=== PATIENT | female | born 1975 | race Caucasian/White ===

== ENCOUNTER 2016-05-27 13:52 | Emergency (ER) | payer MEDICARE, MEDICAID ==
[2016-05-27 15:45] LABS: Hematocrit 42 % (35-47); Hemoglobin 14.2 g/dl (12.0-16.0); Mean Corpuscular HGB Conc 34 g/dl (31-36); Mean Corpuscular Hemoglobin 30 pg (27-31); Mean Corpuscular Volume 90 fL (80-97); Mean Platelet Volume 9 um3 (7.4-10.4); Red Blood Count 4.73 10^6/ul (4.0-5.4); Red Cell Distribution Width 13 % (10.5-15); White Blood Count 9.1 10^3/ul (3.5-10.8)
[2016-05-27 15:58] LABS: Albumin 4.7 g/dL (3.2-5.2); BUN/Creatinine Ratio 13.6 (8-20); C Reactive Protein 2.47 mg/L (< 5.00); Calcium 10.2 mg/dL (8.6-10.3); EGFR African American 126.9 (>60); EGFR Non-African American 98.7 (>60); Globulin 3.4 g/dL (2-4); Potassium 3.5 mmol/L (3.5-5.0); Total Protein 8.1 g/dL (6.4-8.9)
[2016-05-27] MEDS: Ondansetron INJ* 2 MG/ML VIAL IV ONE ×2 (16:19→19:33)
[2016-05-27 17:14] LABS: Erythrocyte Sed Rate 36 mm/Hr (0-14)
[2016-05-27] MEDS ORDERED: Morphine INJ* 4 MG/ML 1 ML SYRINGE IM ONE (17:22)
[2016-05-27 17:34] VITALS: BP 136/74
[2016-05-27] MEDS ORDERED: Iohexol 300* (CONTRAST) 10 ML SDV IV ONE (17:44)
--- NOTE | 2016-05-27 18:53 | RAD ---
INDICATION: Nausea, vomiting, epigastric pain. Diarrhea. History of Lyme disease. Post partial hysterectomy. COMPARISON: September 12, 2010 CT. TECHNIQUE: Multidetector CT images were obtained from the lung bases to the ischial tuberosities. Evaluation of the viscera is limited without IV contrast. Oral contrast administered. Multiplanar reformation. No IV contrast administered due to lack of IV access. REPORT: Unremarkable visualized inferior thorax. No CT abnormality of the unenhanced liver, gallbladder, pancreas, spleen. Negative for CT abdomen malleolus the upper GI, small bowel, retrocecal appendix, or colon. Enteric contrast extends to the mid sigmoid colon. Negative for ascites, free air, hernias. Normal adrenal glands. Negative for nephrolithiasis or hydronephrosis. 2 cm water density cyst at the medial upper pole of the RIGHT kidney. Unremarkable ureters and urinary bladder. Post partial hysterectomy. Unremarkable residual cervix and adnexal regions. Negative for lymphadenopathy. Normal diameter abdominal aorta with minimal calcific plaque. Physiologic distention of the IVC. Negative for suspicious osseous lesions. L4-L5 degenerative spondylosis with moderately severe disc space narrowing and annular disc bulge. Only mild resulting impression on the thecal sac. Degenerative spondylosis and facet joint osteoarthritis results in moderate RIGHT and mild LEFT L4-L5 foraminal stenosis. IMPRESSION: No acute abdominal pelvic pathologic process evident..
[2016-05-27] MEDS ORDERED: Morphine INJ* 4 MG/ML 1 ML SYRINGE IV ONE (19:01)
[2016-05-27] MEDS ORDERED: Omeprazole CAP* 20 MG PO ONE (19:16)
[2016-05-27] MEDS ORDERED: Ondansetron ODT TAB* 4 MG SL PRN (19:16)
[2016-05-27] MEDS ORDERED: Ondansetron INJ* 2 MG/ML VIAL ONE (19:23)
--- NOTE | 2016-05-29 07:44 | ED ---
Abdominal Pain/Female - HPI Summary HPI Summary: Patient is a 40yo F with a complicated PMHx arrives with CC of several weeks of worsening abdominal pain, "worms" in her stool, burping, gas, loud bowel sounds , and profuse diarrhea immediately after eating. She has been on a juice diet for the past week d/t these symptoms stating juice is the only thing she can keep down without diarrhea and severe abdominal pain. The pain is diffuse and constant, but worse after eating or drinking. She has stopped taking her medications about 1-2 weeks ago since she wanted to "cleanse her bowels" before returning. Her history includes lupus and Lyme disease with previous episodes of "worms" in her stool, bartonella rash over the chest, neck pain, back pain and fatigue. She has been seen by her PCP for these symptoms, but feels she may need to seek a GI specialist based on her history. She is currently on Mepron for her lupus flare ups, but hasn't been taking it d/t her GI upset, however she states this medication has worked in the past when she experiences these abd pain episodes. She was previously on Plaquenil. She denies vomiting , but notes to some nausea after eating. She has also brought with her a picture of the "worm" with her BM. - History of Current Complaint Chief Complaint: EDJessicauseRickitMis Stated Complaint: VOMITING Time Seen by Provider: 05/27/16 14:38 Hx Obtained From: Patient ?: No Onset/Duration: Gradual Onset Timing: Constant Severity Initially: Moderate Severity Currently: Moderate Pain Intensity: 5 Pain Scale Used: 0-10 Numeric Location: Diffuse Radiates: No Character: Cramping, Colicy Aggravating Factor(s): Food Alleviating Factor(s): NPO Associated Signs and Symptoms: Positive: Nausea, Diarrhea, Other: - worms in stool - Risk Factors Ectopic Risk Factor: Maternal Age ^ 30 Ovarian Torsion Risk Factor: Reproductive Age Allergies/Adverse Reactions: Allergies Allergy/AdvReac Type Severity Reaction Status Date / Time Sulfa Drugs Allergy Hives Verified 05/27/16 13:54 Codeine AdvReac Intermediate Nausea And Verified 05/27/16 13:54 Vomiting Bupropion [From Wellbutrin] AdvReac Headache Verified 05/27/16 13:54 PMH/Surg Hx/FS Hx/Imm Hx Previously Healthy: Yes Endocrine/Hematology History: Reports: Other Endocrine/Hematological Disorders - Lupus Denies: Hx Thyroid Disease Cardiovascular History: Reports: Hx Hypertension Respiratory History: Denies: Hx Asthma History: Denies: Hx Renal Disease Psychiatric History: Reports: Hx Depression Denies: Hx Eating Disorder, Hx of Violent Episodes Against Others, Hx Substance Abuse - Surgical History Surgery Procedure, Year, and Place: Partial hysterectomy 2006, Eddi Escobar [place]. Tonsillectomy 1998 - Immunization History Date of Tetanus Vaccine: unable to get to to auto immune disease Date of Influenza Vaccine: does not do Infectious Disease History: No Infectious Disease History: Denies: Traveled Outside the [place] in Last 30 Days - Social History Occupation: Employed Full-time Lives: Alone Alcohol Use: None Hx Substance Use: Yes Substance Use Type: Reports: Marijuana Substance Use Comment - Amount & Last Used: 1 month ago Hx Tobacco Use: No Smoking Status (MU): Never Smoked Tobacco Review of Systems Constitutional: Negative Eyes: Negative ENT: Negative Cardiovascular: Negative Respiratory: Negative Positive: Abdominal Pain, Diarrhea, Nausea Genitourinary: Negative Positive: no symptoms reported, see HPI Positive: Arthralgia, Myalgia - at baseline per Lyme disease Positive: Rash - bartonella rash over chest Positive: Headache, Weakness Positive: Anxious, Depressed All Other Systems Reviewed And Are Negative: Yes Physical Exam Triage Information Reviewed: Yes Vital Signs On Initial Exam: Initial Vitals Temp Pulse Resp BP Pulse Ox 98.4 F 93 18 145/99 100 05/27/16 13:54 05/27/16 13:54 05/27/16 13:54 05/27/16 13:54 05/27/16 13:54 Vital Signs Reviewed: Yes Appearance: Positive: Well-Appearing, Well-Nourished Skin: Positive: Warm Head/Face: Positive: Normal Head/Face Inspection Eyes: Positive: Normal, SHRAVAN, Conjunctiva Clear ENT: Positive: Pharynx normal Neck: Positive: Supple, No Lymphadenopathy Respiratory/Lung Sounds: Positive: Clear to Auscultation, Breath Sounds Present Cardiovascular: Positive: Normal, RRR, Pulses are Symmetrical in both Upper and Lower Extremities Abdomen Description: Positive: Soft, Other: - no CVA tenderness, no mcburneys point tenderness, murphys negative. very hyperactive bowel sounds. distended but soft abdomen, diffuse tenderness on palpation, no guarding. negative for bruits or hernias Bowel Sounds: Positive: Hyperactive Musculoskeletal: Positive: Strength/ROM Intact, Pain @ - bilateral tenderness over neck and shoulders Neurological: Positive: Sensory/Motor Intact, Alert, Oriented to Person Place, Time, Speech Normal Psychiatric: Positive: Normal Diagnostics - Vital Signs Vital Signs Temp Pulse Resp BP Pulse Ox 05/27/16 17:31 17 05/27/16 17:25 136/74 05/27/16 13:54 98.4 F 93 18 145/99 100 - Laboratory Lab Results: Lab Results 05/27/16 05/27/16 05/27/16 Range/Units 15:20 15:20 15:20 WBC 9.1 (3.5-10.8) 10^3/ul RBC 4.73 (4.0-5.4) 10^6/ul Hgb 14.2 (12.0-16.0) g/dl Hct 42 (35-47) % MCV 90 (80-97) fL MCH 30 (27-31) pg MCHC 34 (31-36) g/dl RDW 13 (10.5-15) % Plt Count 278 (150-450) 10^3/ul MPV 9 (7.4-10.4) um3 Neut % (Auto) 71.5 (38-83) % Lymph % (Auto) 20.6 L (25-47) % [place] % (Auto) 6.9 (1-9) % Eos % (Auto) 0.3 (0-6) % Baso % (Auto) 0.7 (0-2) % Absolute Neuts (auto) 6.5 (1.5-7.7) 10^3/ul Absolute Lymphs (auto) 1.9 (1.0-4.8) 10^3/ul Absolute Monos (auto) 0.6 (0-0.8) 10^3/ul Absolute Eos (auto) 0 (0-0.6) 10^3/ul Absolute Basos (auto) 0.1 (0-0.2) 10^3/ul Absolute Nucleated RBC 0 10^3/ul Nucleated RBC % 0 ESR 36 H (0-14) mm/Hr INR (Anticoag Therapy) (0.89-1.11) Sodium 138 (133-145) mmol/L Potassium 3.5 (3.5-5.0) mmol/L Chloride 101 (101-111) mmol/L Carbon Dioxide 27 (22-32) mmol/L Anion Gap 10 (2-11) mmol/L BUN 9 (6-24) mg/dL Creatinine 0.66 (0.51-0.95) mg/dL Est GFR ( Amer) 126.9 (>60) Est GFR (Non-Af Amer) 98.7 (>60) BUN/Creatinine Ratio 13.6 (8-20) Glucose 97 (70-100) mg/dL Lactic Acid (0.5-2.0) mmol/L Calcium 10.2 (8.6-10.3) mg/dL Magnesium 2.0 (1.9-2.7) mg/dL Total Bilirubin 1.00 (0.2-1.0) mg/dL AST 12 L (13-39) U/L ALT 8 (7-52) U/L Alkaline Phosphatase 71 (34-104) U/L Ammonia 39 (16-53) mol/L C-Reactive Protein 2.47 (< 5.00) mg/L Total Protein 8.1 (6.4-8.9) g/dL Albumin 4.7 (3.2-5.2) g/dL Globulin 3.4 (2-4) g/dL Albumin/Globulin Ratio 1.4 (1-3) Amylase 29 (29-103) U/L Lipase 13 (11.0-82.0) U/L Beta HCG, Quant 1.14 mIU/mL Influenza A (Rapid) (Negative) Influenza B (Rapid) (Negative) 05/27/16 05/27/16 05/27/16 Range/Units 15:20 15:20 17:38 WBC (3.5-10.8) 10^3/ul RBC (4.0-5.4) 10^6/ul Hgb (12.0-16.0) g/dl Hct (35-47) % MCV (80-97) fL MCH (27-31) pg MCHC (31-36) g/dl RDW (10.5-15) % Plt Count (150-450) 10^3/ul MPV (7.4-10.4) um3 Neut % (Auto) (38-83) % Lymph % (Auto) (25-47) % Baker % (Auto) (1-9) % Eos % (Auto) (0-6) % Baso % (Auto) (0-2) % Absolute Neuts (auto) (1.5-7.7) 10^3/ul Absolute Lymphs (auto) (1.0-4.8) 10^3/ul Absolute Monos (auto) (0-0.8) 10^3/ul Absolute Eos (auto) (0-0.6) 10^3/ul Absolute Basos (auto) (0-0.2) 10^3/ul Absolute Nucleated RBC 10^3/ul Nucleated RBC % ESR (0-14) mm/Hr INR (Anticoag Therapy) 0.96 (0.89-1.11) Sodium (133-145) mmol/L Potassium (3.5-5.0) mmol/L Chloride (101-111) mmol/L Carbon Dioxide (22-32) mmol/L Anion Gap (2-11) mmol/L BUN (6-24) mg/dL Creatinine (0.51-0.95) mg/dL Est GFR ( Amer) (>60) Est GFR (Non-Af Amer) (>60) BUN/Creatinine Ratio (8-20) Glucose (70-100) mg/dL Lactic Acid 1.2 (0.5-2.0) mmol/L Calcium (8.6-10.3) mg/dL Magnesium (1.9-2.7) mg/dL Total Bilirubin (0.2-1.0) mg/dL AST (13-39) U/L ALT (7-52) U/L Alkaline Phosphatase (34-104) U/L Ammonia (16-53) mol/L C-Reactive Protein (< 5.00) mg/L Total Protein (6.4-8.9) g/dL Albumin (3.2-5.2) g/dL Globulin (2-4) g/dL Albumin/Globulin Ratio (1-3) Amylase (29-103) U/L Lipase (11.0-82.0) U/L Beta HCG, Quant mIU/mL Influenza A (Rapid) Negative (Negative) Influenza B (Rapid) Negative (Negative) Result Diagrams: 05/27/16 15:20 05/27/16 15:20 Lab Statement: Any lab studies that have been ordered have been reviewed, and results considered in the medical decision making process. Abdominal Pain Fem Course/Dx - Course Course Of Treatment: CT negative for pathologies. Discussed case with Dr. Odonnell. Patient encouraged to follow up [facility] Dr. Chavira or Dr. Tobias and PCP regarding Lyme disease complications and returning on medications. Fluids given in ED. zofran and pain medication given. Patient improved with medications, however still c/o abdominal tenderness and loud bowel sounds. provider did not change or add medications d/t complicated history and will encourage follow up with GI to assess medications, complications of Lyme disease and to evaluate the stool for helminths or biofilm. patient agrees and will attempt to eat small meals in return of PO intake. zofran given as rx. Discussed possiblities of dx such as IBS, lyme complications, acute viral diarrhea, celiac, amonst others. - Diagnoses Differential Diagnosis: Positive: Bowel Obstruction, Diverticulitis, Irritable Bowel Syndrome Provider Diagnoses: Diarrhea Discharge - Discharge Plan Condition: Stable Disposition: HOME Prescriptions: Omeprazole 40 mg PO BEDTIME #30 cap MDD 1 Ondansetron ODT TAB* [Zofran 4 MG Odt TAB*] 4 mg PO Q6H PRN #20 tab.odt MDD 4 PRN Reason: Nausea Patient Education Materials: Omeprazole (By mouth), Gastroesophageal Reflux Disease (ED) Referrals: Arik Villegas MD [Primary Care Provider] - Mario Tobias MD [Medical Doctor] - John Chavira MD [Medical Doctor] - Additional Instructions: Follow up with [facility]. Take omeprazole at bedtime. Zofran as needed for abdominal pain Eat smaller more frequent meals If symptoms become worse, come back to ED.
== END 2016-05-27 19:57 | disposition home or self-care (01) ==
LOC: ED 13:52
DX: R19.7 Diarrhea, unspecified (principal); R11.0 Nausea
CPT/HCPCS: 36415; 74176; 80053; 82140; 82150; 83605; 83690; 83735; 84702; 85025; 85610; 85652; 86140; 87502; 96374; 96375; 99284; A9270-GY; J2270; J2405

== ENCOUNTER 2016-05-30 14:53 | Emergency (ER) | payer MEDICARE, MEDICAID ==
[2016-05-30 16:45] VITALS: BP 159/88
[2016-05-30 17:08] LABS: Hematocrit 37 % (35-47); Hemoglobin 12.5 g/dl (12.0-16.0); Mean Corpuscular HGB Conc 34 g/dl (31-36); Mean Corpuscular Hemoglobin 30 pg (27-31); Mean Corpuscular Volume 89 fL (80-97); Mean Platelet Volume 8 um3 (7.4-10.4); Red Blood Count 4.12 10^6/ul (4.0-5.4); Red Cell Distribution Width 13 % (10.5-15); White Blood Count 8.1 10^3/ul (3.5-10.8)
[2016-05-30 17:25] LABS: Albumin 4.1 g/dL (3.2-5.2); BUN/Creatinine Ratio 16.1 (8-20); C Reactive Protein 2.17 mg/L (< 5.00); Calcium 9.6 mg/dL (8.6-10.3); EGFR African American 136.4 (>60); EGFR Non-African American 106.1 (>60); Globulin 2.8 g/dL (2-4); Potassium 3.6 mmol/L (3.5-5.0); Total Bilirubin 0.9 mg/dL (0.2-1.0); Total Protein 6.9 g/dL (6.4-8.9)
[2016-05-30] MEDS ORDERED: Ondansetron ODT TAB* 4 MG PO ONE (18:33)
--- NOTE | 2016-06-02 15:29 | ED ---
Thomas Barger Adam, scribed for Emerson Mcdonald MD on 05/30/16 at 1723 . Abdominal Pain/Female - HPI Summary HPI Summary: Pt is a 40 year old female with chronic Lyme disease presenting with abdominal pain. She came here on 05/27 because she was unable to keep food down and she was having diarrhea. She was also concerned because she thought she saw a worm in her stool. She was discharged from the ED with Zofran and Immodium. The next morning she woke up and found that she had had diarrhea in her sleep. Then she had a second episode of bowel incontinence during a nap later that day. The following day (yesterday) she had a solid BM, was able to tolerate PO, and felt like she was at her normal baseline. Then today the abdominal pain returned again. She also c/o generalized myalgia and diaphoresis. At the moment the pt is in no pain but she c/o nausea. She was put on Azithromycin for the Lyme 5-[address] Villegas but she states that she was unable to continue taking it because it upset her stomach too much. She decided to focus on her GI health first and she is scheduled to see a GI doctor on 07/04. Pt denies any surgeries and denies any alcohol use. - History of Current Complaint Chief Complaint: EDAbdPain Stated Complaint: PAIN WITH BOWEL MOVEMENT Time Seen by Provider: 05/30/16 16:43 Hx Obtained From: Patient Onset/Duration: Gradual Onset, Lasting Weeks, Still Present Timing: Intermittent Episode Lasting - Days Severity Initially: Moderate Severity Currently: None Pain Intensity: 5 Pain Scale Used: 0-10 Numeric Location: Diffuse Radiates: No Aggravating Factor(s): Nothing Alleviating Factor(s): Nothing Associated Signs and Symptoms: Positive: Diaphoresis, Nausea, Diarrhea, Other: - Bowel incontinence Allergies/Adverse Reactions: Allergies Allergy/AdvReac Type Severity Reaction Status Date / Time Sulfa Drugs Allergy Hives Verified 05/27/16 13:54 Codeine AdvReac Intermediate Nausea And Verified 05/27/16 13:54 Vomiting Bupropion [From Wellbutrin] AdvReac Headache Verified 05/27/16 13:54 PMH/Surg Hx/FS Hx/Imm Hx Endocrine/Hematology History: Reports: Other Endocrine/Hematological Disorders - Lupus Denies: Hx Thyroid Disease Cardiovascular History: Reports: Hx Hypertension Respiratory History: Denies: Hx Asthma History: Denies: Hx Renal Disease Psychiatric History: Reports: Hx Depression Denies: Hx Eating Disorder, Hx of Violent Episodes Against Others, Hx Substance Abuse - Surgical History Surgery Procedure, Year, and Place: Partial hysterectomy 2006, Eddi Escobar [place]. Tonsillectomy 1998 - Immunization History Date of Tetanus Vaccine: unable to get to to auto immune disease Date of Influenza Vaccine: does not do Infectious Disease History: No Infectious Disease History: Denies: Traveled Outside the [place] in Last 30 Days - Family History Known Family History: Positive: Other - Depression (father, sister) - Social History Occupation: Disabled Lives: With Family - Daughter Alcohol Use: None Hx Substance Use: Yes Substance Use Type: Reports: Marijuana, Prescribed Substance Use Comment - Amount & Last Used: 1 month ago Hx Tobacco Use: No Smoking Status (MU): Never Smoked Tobacco Review of Systems Positive: Skin Diaphoresis. Negative: Fever, Chills Negative: Erythema Negative: Sore Throat Negative: Chest Pain Negative: Shortness Of Breath, Cough Positive: Abdominal Pain, Diarrhea, Nausea. Negative: Vomiting Negative: dysuria, hematuria Positive: Myalgia - Generalized. Negative: Edema Negative: Rash All Other Systems Reviewed And Are Negative: Yes Physical Exam - Summary Physical Exam Summary: Constitutional: Well-developed, Well-nourished, Alert. (-) Distressed Skin: Warm, Dry HENT: Normocephalic; Atraumatic Eyes: Conjunctiva normal Neck: Musculoskeletal ROM normal neck. (-) JVD, (-) Stridor, (-) Tracheal deviation Cardio: Rhythm regular, rate normal, Heart sounds normal; Intact distal pulses; The pedal pulses are 2+ and symmetric. Radial pulses are 2+ and symmetric. (-) Murmur Pulmonary/Chest wall: Effort normal. (-) Respiratory distress, (-) Wheezes, (-) Rales Abd: Soft, (-) Tenderness, (-) Distension, (-) Guarding, (-) Rebound Musculoskeletal: (-) Edema Lymph: (-) Cervical adenopathy Neuro: Alert, Oriented x3 Psych: Mood and affect Normal Triage Information Reviewed: Yes Vital Signs On Initial Exam: Initial Vitals Temp Pulse Resp BP Pulse Ox 97.7 F 72 16 150/101 100 05/30/16 14:55 05/30/16 14:55 05/30/16 14:55 05/30/16 14:55 05/30/16 14:55 Vital Signs Reviewed: Yes - [place] Coma Scale Coma Scale Total: 15 Diagnostics - Vital Signs Vital Signs Temp Pulse Resp BP Pulse Ox 05/30/16 16:41 73 97 05/30/16 16:40 159/88 05/30/16 14:55 97.7 F 72 16 150/101 100 - Laboratory Lab Results: Lab Results 05/30/16 Range/Units 17:02 WBC 8.1 (3.5-10.8) 10^3/ul RBC 4.12 (4.0-5.4) 10^6/ul Hgb 12.5 (12.0-16.0) g/dl Hct 37 (35-47) % MCV 89 (80-97) fL MCH 30 (27-31) pg MCHC 34 (31-36) g/dl RDW 13 (10.5-15) % Plt Count 243 (150-450) 10^3/ul MPV 8 (7.4-10.4) um3 Neut % (Auto) 62.5 (38-83) % Lymph % (Auto) 27.6 (25-47) % [place] % (Auto) 8.5 (1-9) % Eos % (Auto) 0.4 (0-6) % Baso % (Auto) 1.0 (0-2) % Absolute Neuts (auto) 5.1 (1.5-7.7) 10^3/ul Absolute Lymphs (auto) 2.2 (1.0-4.8) 10^3/ul Absolute Monos (auto) 0.7 (0-0.8) 10^3/ul Absolute Eos (auto) 0 (0-0.6) 10^3/ul Absolute Basos (auto) 0.1 (0-0.2) 10^3/ul Absolute Nucleated RBC 0.01 10^3/ul Nucleated RBC % 0.1 Result Diagrams: 05/30/16 17:02 05/30/16 17:02 Lab Statement: Any lab studies that have been ordered have been reviewed, and results considered in the medical decision making process. Re-Evaluation - Re-Evaluation First Eval Re-Evaluation Time: 18:55 - Patient feels better after Zofran. She has Zofran at home. I told her to call GI and have her appt moved up. She is nontoxic- appearing and tolerating oral intake. Pt states that her most recent stool here in the ED was well-formed. Change: Improved Abdominal Pain Fem Course/Dx - Diagnoses Provider Diagnoses: Diarrhea Discharge - Discharge Plan Condition: Stable Disposition: HOME Patient Education Materials: Chronic Diarrhea (ED) Referrals: Arik Villegas MD [Primary Care Provider] - Mario Tobias MD [Medical Doctor] - Additional Instructions: Call Dr. Tobias (GI) to have your appointment moved up. Follow up with him in 3 -5 days. The documentation as recorded by the Thomas payne Adam accurately reflects the service I personally performed and the decisions made by me, Emerson Mcdonald MD.
== END 2016-05-30 18:57 | disposition home or self-care (01) ==
LOC: ED 14:53
DX: R19.7 Diarrhea, unspecified (principal); R10.9 Unspecified abdominal pain; R11.0 Nausea
CPT/HCPCS: 36415; 80053; 83605; 83690; 85025; 86140; 87045; 87046; 87177; 87209; 87328; 87329; 87899; 99282

== ENCOUNTER → 2016-09-15 16:23 | Emergency (ER) | payer MEDICARE, MEDICAID ==
[2016-09-15 17:57] VITALS: BP 121/86
[2016-09-15 18:12] LABS: Hematocrit 40 % (35-47); Hemoglobin 13.3 g/dl (12.0-16.0); Mean Corpuscular HGB Conc 34 g/dl (31-36); Mean Corpuscular Hemoglobin 31 pg (27-31); Mean Corpuscular Volume 93 fL (80-97); Mean Platelet Volume 9 um3 (7.4-10.4); Red Blood Count 4.26 10^6/ul (4.0-5.4); Red Cell Distribution Width 13 % (10.5-15); White Blood Count 7.6 10^3/ul (3.5-10.8)
[2016-09-15 18:19] LABS: Albumin 4.2 g/dL (3.2-5.2); BUN/Creatinine Ratio 16.7 (8-20); C Reactive Protein 1.96 mg/L (< 5.00); Calcium 9.5 mg/dL (8.6-10.3); EGFR African American 126.3 (>60); EGFR Non-African American 98.2 (>60); Globulin 2.8 g/dL (2-4); Potassium 3.6 mmol/L (3.5-5.0); Total Bilirubin 0.5 mg/dL (0.2-1.0)
--- NOTE | 2016-09-15 18:41 | RAD ---
HISTORY: Left arm numbness COMPARISONS: August 18, 2009 TECHNIQUE: Multiple contiguous axial CT scans were obtained of the head without intravenous contrast. FINDINGS: HEMORRHAGE/INFARCT: There is no hemorrhage or acute infarct. MASSES/SHIFT: There is no mass or shift. EXTRA-AXIAL SPACES: There are no extra-axial fluid collections. SULCI AND VENTRICLES: The sulci and ventricles are normal in size and position for the patient's stated age. CEREBRUM: There are no focal parenchymal abnormalities. BRAINSTEM: There are no focal parenchymal abnormalities. CEREBELLUM: There are no focal parenchymal abnormalities. VESSELS: The vessels are grossly normal. PARANASAL SINUSES: The paranasal sinuses are clear. ORBITS: The orbits are unremarkable. BONES AND SOFT TISSUE: No bone or soft tissue abnormalities are noted. OTHER: None IMPRESSION: NO ACUTE INTRACRANIAL PATHOLOGY.
[2016-09-15 18:44] LABS: TSH (Thyroid Stimulating Horm) 0.71 mcIU/mL (0.34-5.60)
--- NOTE | 2016-09-16 13:17 | ED ---
Lauren Barger Alfonso, scribed for Devin Stevenson MD on 09/15/16 at 1715 . Complex/Multi-Sys Presentation - HPI Summary HPI Summary: This patient is a 41 year old F [place] [facility] [place] by Marcos with a chief complaint of headaches since 5 days ago. Pt rates the pain 2/10 in severity. Symptoms aggravated by exertion and alleviated by ibuprofen. Pt reports dizziness, palpitations described as skipping beats, and LUE hand numbness (2 days). Pt is right hand dominant. PMHx of HTN, Lyme disease, migraines, and arthralgia. - History Of Current Complaint Chief Complaint: EDGeneral Time Seen by Provider: 09/15/16 17:02 Hx Obtained From: Patient Onset/Duration: Sudden Onset, Lasting Days - 5, Still Present Timing: Constant Severity Currently: Mild Severity Initially: Mild Aggravating Factor(s): exertion Alleviating Factor(s): ibuprofen Associated Signs And Symptoms: Positive: Other - Positive headache, dizziness, palpitations described as skipping beats, and LUE hand numbness (2 days) - Allergies/Home Medications Allergies/Adverse Reactions: Allergies Allergy/AdvReac Type Severity Reaction Status Date / Time Sulfa Drugs Allergy Hives Verified 06/08/16 11:06 Codeine AdvReac Intermediate Nausea And Verified 06/08/16 11:06 Vomiting Bupropion [From Wellbutrin] AdvReac Headache Verified 06/08/16 11:06 PMH/Surg Hx/FS Hx/Imm Hx Endocrine/Hematology History: Reports: Other Endocrine/Hematological Disorders - Lupus Denies: Hx Thyroid Disease Cardiovascular History: Reports: Hx Hypertension Respiratory History: Denies: Hx Asthma History: Denies: Hx Renal Disease Psychiatric History: Reports: Hx Depression Denies: Hx Eating Disorder, Hx of Violent Episodes Against Others, Hx Substance Abuse - Surgical History Surgery Procedure, Year, and Place: Partial hysterectomy 2006, Eddi Escobar [place]. Tonsillectomy 1998 - Immunization History Date of Tetanus Vaccine: unable to get to to auto immune disease Date of Influenza Vaccine: does not do Infectious Disease History: No Infectious Disease History: Denies: Traveled Outside the [place] in Last 30 Days - Family History Known Family History: Positive: Other - Depression (father, sister) - Social History Alcohol Use: None Hx Substance Use: Yes Substance Use Type: Reports: Marijuana, Prescribed Substance Use Comment - Amount & Last Used: 1 month ago Hx Tobacco Use: No Smoking Status (MU): Never Smoked Tobacco Review of Systems Negative: Fever Positive: Palpitations - described as skipping beats Neurological: Other - Positive dizziness Positive: Headache, Numbness - LUE hand All Other Systems Reviewed And Are Negative: Yes Physical Exam Triage Information Reviewed: Yes Vital Signs On Initial Exam: Initial Vitals Temp Pulse Resp BP Pulse Ox 98.3 F 108 19 152/93 100 09/15/16 16:29 09/15/16 16:29 09/15/16 16:29 09/15/16 16:29 09/15/16 16:29 Vital Signs Reviewed: Yes Appearance: Positive: Well-Appearing, No Pain Distress Skin: Positive: Warm, Skin Color Reflects Adequate Perfusion, Dry Head/Face: Positive: Normal Head/Face Inspection Eyes: Positive: Normal ENT: Positive: Normal ENT inspection Neck: Positive: Supple, Nontender Respiratory/Lung Sounds: Positive: Clear to Auscultation, Breath Sounds Present Cardiovascular: Positive: Tachycardia Abdomen Description: Positive: Nontender, No Organomegaly Bowel Sounds: Positive: Present Musculoskeletal: Positive: Strength/ROM Intact Neurological: Positive: Normal, Alert, Oriented to Person Place, Time, CN Intact II-III, Other - Decreased 2 point discrimination on left thumb and index finger Psychiatric: Positive: Affect/Mood Appropriate - Franklin Coma Scale Coma Scale Total: 15 Diagnostics - Vital Signs Vital Signs Temp Pulse Resp BP Pulse Ox 09/15/16 16:32 98.3 F 108 19 152/93 100 09/15/16 16:29 98.3 F 108 19 152/93 100 - Laboratory Lab Results: Lab Results 09/15/16 09/15/16 Range/Units 17:52 17:52 WBC 7.6 (3.5-10.8) 10^3/ul RBC 4.26 (4.0-5.4) 10^6/ul Hgb 13.3 (12.0-16.0) g/dl Hct 40 (35-47) % MCV 93 (80-97) fL MCH 31 (27-31) pg MCHC 34 (31-36) g/dl RDW 13 (10.5-15) % Plt Count 269 (150-450) 10^3/ul MPV 9 (7.4-10.4) um3 Neut % (Auto) 65.8 (38-83) % Lymph % (Auto) 21.8 L (25-47) % Sheridan % (Auto) 9.8 H (1-9) % Eos % (Auto) 1.3 (0-6) % Baso % (Auto) 1.3 (0-2) % Absolute Neuts (auto) 5.0 (1.5-7.7) 10^3/ul Absolute Lymphs (auto) 1.7 (1.0-4.8) 10^3/ul Absolute Monos (auto) 0.7 (0-0.8) 10^3/ul Absolute Eos (auto) 0.1 (0-0.6) 10^3/ul Absolute Basos (auto) 0.1 (0-0.2) 10^3/ul Absolute Nucleated RBC 0 10^3/ul Nucleated RBC % 0 Sodium 137 (133-145) mmol/L Potassium 3.6 (3.5-5.0) mmol/L Chloride 104 (101-111) mmol/L Carbon Dioxide 26 (22-32) mmol/L Anion Gap 7 (2-11) mmol/L BUN 11 (6-24) mg/dL Creatinine 0.66 (0.51-0.95) mg/dL Est GFR ( Amer) 126.3 (>60) Est GFR (Non-Af Amer) 98.2 (>60) BUN/Creatinine Ratio 16.7 (8-20) Glucose 101 H (70-100) mg/dL Calcium 9.5 (8.6-10.3) mg/dL Total Bilirubin 0.50 (0.2-1.0) mg/dL AST 12 L (13-39) U/L ALT 8 (7-52) U/L Alkaline Phosphatase 58 (34-104) U/L Troponin I 0.00 (<0.04) ng/mL C-Reactive Protein 1.96 (< 5.00) mg/L Total Protein 7.0 (6.4-8.9) g/dL Albumin 4.2 (3.2-5.2) g/dL Globulin 2.8 (2-4) g/dL Albumin/Globulin Ratio 1.5 (1-3) TSH 0.71 (0.34-5.60) mcIU/mL Beta HCG, Quant 0.68 mIU/mL Result Diagrams: 09/15/16 17:52 09/15/16 17:52 Lab Statement: Any lab studies that have been ordered have been reviewed, and results considered in the medical decision making process. - CT Brain CT CT Interpretation Completed By: Radiologist - NO ACUTE INTRACRANIAL PATHOLOGY. Complex Multi-Symp Course/Dx Course Of Treatment: Ms. Anaya's primary concern was the skipping beats sensation and her left hand numbness. She was monitored here without ectopy. Phalen's sign was positive and it was my impression that her left hand numbness was from carpal tunnel. - Diagnoses Provider Diagnoses: Carpal tunnel syndrome of left wrist, Palpitations - Physician Notifications Discussed Care Of Patient With: Alexx Glass Time Discussed With Above Provider: 19:21 Instructed by Provider To: Other - Consulted Dr. Glass (neurologist) who agrees this appears to be carpal tunnel. Discharge - Discharge Plan Condition: Stable Disposition: HOME Patient Education Materials: Palpitations (ED) Referrals: Arik Villegas MD [Primary Care Provider] - 1 Week Additional Instructions: Review education material for palpitations and carpal tunnel. Follow up with your primary care physician. The documentation as recorded by the Lauren payne Alfonso accurately reflects the service I personally performed and the decisions made by me, Devin Stevenson MD.
== END | disposition home or self-care (01) ==
LOC: ED 16:23
DX: G56.02 Carpal tunnel syndrome, left upper limb (principal); R00.2 Palpitations; I10 Essential (primary) hypertension; Z88.2 Allergy status to sulfonamides; Z88.5 Allergy status to narcotic agent
CPT/HCPCS: 36415; 70450; 80053; 84443; 84484; 84702; 85025; 86140; 99282

== ENCOUNTER 2017-04-27 07:03 | Emergency (ER) | payer MEDICARE, MEDICAID ==
[2017-04-27] MEDS ORDERED: NS 0.9% 1000 ML* 1,000 ML IV ONE (07:37)
[2017-04-27 07:58] LABS: ABS Basophils 0.1 10^3/ul (0-0.2); ABS Eosinophils 0.1 10^3/ul (0-0.6); ABS Monocytes 0.7 10^3/ul (0-0.8); ABS Neutrophils 4.6 10^3/ul (1.5-7.7); ABS Nucleated RBC 0 10^3/ul; Eosinophil % 0.7 % (0-6); Hematocrit 39 % (35-47); Mean Corpuscular HGB Conc 34 g/dl (31-36); Mean Corpuscular Hemoglobin 31 pg (27-31); Mean Corpuscular Volume 92 fL (80-97); Mean Platelet Volume 8 um3 (7.4-10.4); Nucleated Red Blood Cells % 0; Platelet Count 228 10^3/ul (150-450); Red Cell Distribution Width 13 % (10.5-15); White Blood Count 7.4 10^3/ul (3.5-10.8)
[2017-04-27 08:14] LABS: EGFR Non-African American 87.4 (>60)
[2017-04-27 08:18] LABS: INR 0.86 (0.77-1.02)
--- NOTE | 2017-04-27 08:51 | RAD ---
HISTORY: Right upper quadrant pain COMPARISONS: None TECHNIQUE: Multiple transverse and longitudinal ultrasound images were obtained of the right upper quadrant of the abdomen using grayscale and color Doppler imaging. FINDINGS: LIVER: The liver is normal in shape, size, contour, and echogenicity. There are no focal parenchymal masses. There is normal hepatopedal flow of the portal vein on Doppler imaging. BILIARY TREE: There is no intrahepatic or extrahepatic biliary dilatation. The common duct measures 0.5 cm. GALLBLADDER: The gallbladder is well-visualized. There is no cholelithiasis, gallbladder wall thickening, pericholecystic fluid, or sonographic Wilhelm sign. PANCREAS: The head of the pancreas is unremarkable. The tail of the pancreas is not well visualized secondary to overlying bowel gas. RIGHT KIDNEY: The right kidney is normal in shape, size, contour, and echogenicity. There is a 1.9 cm parapelvic cyst. There is no hydronephrosis or nephrolithiasis. The right kidney measures 12.6 x 6.4 x 5.9 cm. AORTA AND IVC: The aorta and IVC are unremarkable. FLUID: There are no pleural effusions. There is no free fluid within the hepatorenal recess. OTHER FINDINGS: None. IMPRESSION: NO ACUTE SONOGRAPHIC PATHOLOGY OF THE VISUALIZED PORTION OF THE ABDOMEN.
[2017-04-27 09:32] LABS: Urine Appearance Clear; Urine Blood 1+ (Negative); Urine Color Straw; Urine Ketones Negative (Negative); Urine Protein Negative (Negative); Urine Specific Gravity 1.008 (1.010-1.030); Urine Urobilinogen Negative (Negative)
--- NOTE | 2017-04-27 10:53 | RAD ---
CLINICAL HISTORY: Right upper quadrant pain, hematuria, status post partial hysterectomy COMPARISON: May 27, 2016 TECHNIQUE: Multiple contiguous axial CT scans were obtained of the abdomen and pelvis, without intravenous contrast enhancement. Coronal and sagittal multiplanar reformations are submitted for review. Oral contrast was not administered. FINDINGS: The study is limited by the lack of intravenous contrast. This limits evaluation of the solid organs and vasculature. LUNG BASES: The lung bases are clear. LIVER: The liver is normal in shape, size, contour, and attenuation. BILE DUCTS: There is no intrahepatic or extrahepatic biliary dilatation. GALLBLADDER: The gallbladder is normal, without pericholecystic inflammatory change. PANCREAS: The pancreas is normal, without mass or ductal dilatation. SPLEEN: Normal in size and appearance. UPPER GI TRACT: Evaluation of the gastrointestinal tract is limited by incomplete gastric distention. The upper GI tract is unremarkable. SMALL BOWEL AND MESENTERY: The small bowel is normal in contour, course, and caliber. There is no obstruction or dilatation. COLON: There are scattered diverticula of the distal colon. There is no pericolonic inflammatory change. There is a tubular, vermiform, hollow viscus that is blind ending, and originates from the cecum, consistent with a normal appendix. There is no periappendiceal inflammatory change. This is best seen on axial images 89 through 107. ADRENALS: Normal bilaterally. KIDNEYS: There is a simple cyst of the midpole of the right kidney. There is no appreciable hydronephrosis or nephrolithiasis. BLADDER: The bladder is incompletely distended but is grossly normal. PELVIC ORGANS: The patient is status post partial hysterectomy. There are stable vascular calcifications of the pelvis. AORTA: The aorta is normal. IVC: Unremarkable LYMPH NODES: There is no lymphadenopathy by size criteria. ABDOMINAL WALL: There is no evidence for abdominal wall hernia. BONES AND SOFT TISSUES: Degenerative changes are noted at L4-L5 OTHER: None IMPRESSION: NO APPRECIABLE HYDRONEPHROSIS OR NEPHROLITHIASIS
[2017-04-27] MEDS ORDERED: Ketorolac INJ* 30 MG/ML 1 ML VIAL IV PUSH ONE (10:56)
[2017-04-27 12:55] VITALS: BP 144/92
--- NOTE | 2017-04-28 20:29 | ED ---
Lonnie Barger Natalie, scribed for Brandy Guzman MD on 04/27/17 at 1101 . Abdominal Pain/Female - HPI Summary HPI Summary: The patient is a 41 y/o F presenting to ED c/o intermittent RUQ sharp pain starting one week ago. The pain moved towards suprapubic region yesterday. At 06 :00 this morning, she got up to use the bathroom when her whole right side started burning and hurting. Currently the patient rates the pain as 5/10. She has associated symptoms of flatulence, burping, nausea, constipation, and heartburn pain. She denies vomiting, fever, and diarrhea. She has hx of Lupus, Hashimotos, Lyme Disease, Raynauds disease, Sjogrens syndrome, and depression. She does not have hx of kidney stones or gallbladder issues, but she has had problems with her kidneys in the past for increased protein. The patient takes Neurontin, Gabapentin, and Oxycodone as needed. She had partial hysterectomy at age 29, and has had a tonsillectomy. Her son in February 2017. The patient has FHx of leukemia in father and grandmother, and gallbladder problems and diabetes in siblings. She has seen Pema Muro and Dr. Magallanes for endocrinology. PCP is Dr. Villegas. - History of Current Complaint Chief Complaint: EDAbdPain Stated Complaint: ABD PAIN Time Seen by Provider: 04/27/17 07:36 Hx Obtained From: Patient Hx Last Menstrual Period: hysterectomy ?: No Onset/Duration: Sudden Onset, Lasting Days - started 1 week ago, Still Present, Worse Since - this morning at 06:00 Timing: Intermittent Episode Lasting Severity Initially: Moderate Severity Currently: Moderate Pain Intensity: 5 Pain Scale Used: 0-10 Numeric Location: Discrete At: RUQ Radiates: No Character: Sharp, Burning Aggravating Factor(s): Nothing Alleviating Factor(s): Nothing Associated Signs and Symptoms: Positive: Constipation, Nausea, Other: - flatulence, burping, "heartburn pain". Negative: Fever, Vomiting, Diarrhea Allergies/Adverse Reactions: Allergies Allergy/AdvReac Type Severity Reaction Status Date / Time bupropion Allergy Headache Verified 04/27/17 08:53 codeine Allergy Nausea And Verified 04/27/17 08:52 Vomiting Sulfa (Sulfonamide Allergy Hives Verified 04/27/17 08:52 Antibiotics) PMH/Surg Hx/FS Hx/Imm Hx Previously Healthy: No Endocrine/Hematology History: Reports: Hx Systemic Lupus Erythematosus, Hx Thyroid Disease - Marjorie's, Other Endocrine/Hematological Disorders - Sjogren's syndrome, Lyme disease, Raynaud's disease Cardiovascular History: Reports: Hx Hypertension Respiratory History: Denies: Hx Asthma History: Denies: Hx Renal Disease Psychiatric History: Reports: Hx Depression Denies: Hx Eating Disorder, Hx of Violent Episodes Against Others, Hx Substance Abuse - Surgical History Surgery Procedure, Year, and Place: Partial hysterectomy 2006, Eddi Escobar [place]. 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 Date of Influenza Vaccine: does not do Infectious Disease History: No Infectious Disease History: Denies: Traveled Outside the [place] in Last 30 Days - Family History Known Family History: Positive: Diabetes - in siblings, Other - Depression ( father, sister), Leukemia (father, grandmother) - Social History Lives: With Family Alcohol Use: None Hx Substance Use: No Hx Tobacco Use: No Smoking Status (MU): Never Smoked Tobacco - Additional Comments History Additional Comments: Social history: patient's son in February 2017 Review of Systems Negative: Fever Cardiovascular: Negative Respiratory: Negative Positive: Abdominal Pain - RUQ, Nausea, Other - flatulence, burping, constipation, "heartburn pain". Negative: Vomiting, Diarrhea Skin: Negative Neurological: Negative Psychological: Normal All Other Systems Reviewed And Are Negative: Yes Physical Exam Triage Information Reviewed: Yes Vital Signs On Initial Exam: Initial Vitals Temp Pulse Resp BP Pulse Ox 99 F 80 18 130/73 99 04/27/17 07:17 04/27/17 07:17 04/27/17 07:17 04/27/17 07:17 04/27/17 07:17 Vital Signs Reviewed: Yes Appearance: Positive: Well-Appearing, Well-Nourished, Pain Distress Skin: Positive: Warm, Skin Color Reflects Adequate Perfusion Head/Face: Positive: Normal Head/Face Inspection Eyes: Positive: Conjunctiva Clear ENT: Positive: Normal ENT inspection Neck: Positive: Supple Respiratory/Lung Sounds: Positive: Other - Lungs clear, normal breath sounds, no respiratory distress Cardiovascular: Positive: Other - RRR, No murmur, pulses normal, brisk capillary refill Abdomen Description: Positive: Soft, Other: - tenderness in RUQ Bowel Sounds: Positive: Present Musculoskeletal: Positive: Strength/ROM Intact Neurological: Positive: Other - Alert, muscle tone normal, facial symmetry, speech normal, sensory/motor intact Psychiatric: Positive: Normal Diagnostics - Vital Signs Vital Signs Temp Pulse Resp BP Pulse Ox 04/27/17 09:00 62 96 04/27/17 08:14 66 119/69 99 04/27/17 08:00 73 144/84 100 04/27/17 07:43 74 100 04/27/17 07:42 133/82 04/27/17 07:17 99 F 80 18 130/73 99 - Laboratory Lab Results: Lab Results 04/27/17 04/27/17 04/27/17 Range/Units 07:45 07:45 07:45 WBC 7.4 (3.5-10.8) 10^3/ul RBC 4.20 (4.0-5.4) 10^6/ul Hgb 13.0 (12.0-16.0) g/dl Hct 39 (35-47) % MCV 92 (80-97) fL MCH 31 (27-31) pg MCHC 34 (31-36) g/dl RDW 13 (10.5-15) % Plt Count 228 (150-450) 10^3/ul MPV 8 (7.4-10.4) um3 Neut % (Auto) 62.5 (38-83) % Lymph % (Auto) 27.0 (25-47) % Starr % (Auto) 9.1 H (1-9) % Eos % (Auto) 0.7 (0-6) % Baso % (Auto) 0.7 (0-2) % Absolute Neuts (auto) 4.6 (1.5-7.7) 10^3/ul Absolute Lymphs (auto) 2.0 (1.0-4.8) 10^3/ul Absolute Monos (auto) 0.7 (0-0.8) 10^3/ul Absolute Eos (auto) 0.1 (0-0.6) 10^3/ul Absolute Basos (auto) 0.1 (0-0.2) 10^3/ul Absolute Nucleated RBC 0 10^3/ul Nucleated RBC % 0 INR (Anticoag Therapy) 0.86 (0.77-1.02) APTT 31.8 (26.0-36.3) seconds Sodium 138 (133-145) mmol/L Potassium 3.8 (3.5-5.0) mmol/L Chloride 104 (101-111) mmol/L Carbon Dioxide 28 (22-32) mmol/L Anion Gap 6 (2-11) mmol/L BUN 15 (6-24) mg/dL Creatinine 0.73 (0.51-0.95) mg/dL Est GFR ( Amer) 112.4 (>60) Est GFR (Non-Af Amer) 87.4 (>60) BUN/Creatinine Ratio 20.5 H (8-20) Glucose 105 H (70-100) mg/dL Lactic Acid (0.5-2.0) mmol/L Calcium 9.7 (8.6-10.3) mg/dL Magnesium 2.0 (1.9-2.7) mg/dL Total Bilirubin 0.60 (0.2-1.0) mg/dL AST 10 L (13-39) U/L ALT 8 (7-52) U/L Alkaline Phosphatase 48 (34-104) U/L Troponin I 0.00 (<0.04) ng/mL C-Reactive Protein 1.83 (< 5.00) mg/L Total Protein 6.9 (6.4-8.9) g/dL Albumin 4.1 (3.2-5.2) g/dL Globulin 2.8 (2-4) g/dL Albumin/Globulin Ratio 1.5 (1-3) Amylase 34 (29-103) U/L Lipase 11 (11.0-82.0) U/L Beta HCG, Quant < 0.60 mIU/mL Urine Color Urine Appearance Urine pH (5-9) Ur Specific [place] (1.010-1.030) Urine Protein (Negative) Urine Ketones (Negative) Urine Blood (Negative) Urine Nitrate (Negative) Urine Bilirubin (Negative) Urine Urobilinogen (Negative) Ur Leukocyte Esterase (Negative) Urine WBC (Auto) (Absent) Urine RBC (Auto) (Absent) Ur Squamous Epith Cells (Absent) Urine Bacteria (Absent) Urine Glucose (Negative) 04/27/17 04/27/17 Range/Units 07:45 09:19 WBC (3.5-10.8) 10^3/ul RBC (4.0-5.4) 10^6/ul Hgb (12.0-16.0) g/dl Hct (35-47) % MCV (80-97) fL MCH (27-31) pg MCHC (31-36) g/dl RDW (10.5-15) % Plt Count (150-450) 10^3/ul MPV (7.4-10.4) um3 Neut % (Auto) (38-83) % Lymph % (Auto) (25-47) % Starr % (Auto) (1-9) % Eos % (Auto) (0-6) % Baso % (Auto) (0-2) % Absolute Neuts (auto) (1.5-7.7) 10^3/ul Absolute Lymphs (auto) (1.0-4.8) 10^3/ul Absolute Monos (auto) (0-0.8) 10^3/ul Absolute Eos (auto) (0-0.6) 10^3/ul Absolute Basos (auto) (0-0.2) 10^3/ul Absolute Nucleated RBC 10^3/ul Nucleated RBC % INR (Anticoag Therapy) (0.77-1.02) APTT (26.0-36.3) seconds Sodium (133-145) mmol/L Potassium (3.5-5.0) mmol/L Chloride (101-111) mmol/L Carbon Dioxide (22-32) mmol/L Anion Gap (2-11) mmol/L BUN (6-24) mg/dL Creatinine (0.51-0.95) mg/dL Est GFR ( Amer) (>60) Est GFR (Non-Af Amer) (>60) BUN/Creatinine Ratio (8-20) Glucose (70-100) mg/dL Lactic Acid 0.6 (0.5-2.0) mmol/L Calcium (8.6-10.3) mg/dL Magnesium (1.9-2.7) mg/dL Total Bilirubin (0.2-1.0) mg/dL AST (13-39) U/L ALT (7-52) U/L Alkaline Phosphatase (34-104) U/L Troponin I (<0.04) ng/mL C-Reactive Protein (< 5.00) mg/L Total Protein (6.4-8.9) g/dL Albumin (3.2-5.2) g/dL Globulin (2-4) g/dL Albumin/Globulin Ratio (1-3) Amylase (29-103) U/L Lipase (11.0-82.0) U/L Beta HCG, Quant mIU/mL Urine Color Straw Urine Appearance Clear Urine pH 7.0 (5-9) Ur Specific [place] 1.008 L (1.010-1.030) Urine Protein Negative (Negative) Urine Ketones Negative (Negative) Urine Blood 1+ H (Negative) Urine Nitrate Negative (Negative) Urine Bilirubin Negative (Negative) Urine Urobilinogen Negative (Negative) Ur Leukocyte Esterase Negative (Negative) Urine WBC (Auto) Absent (Absent) Urine RBC (Auto) Trace(0-2/hpf) (Absent) Ur Squamous Epith Cells Present H (Absent) Urine Bacteria Absent (Absent) Urine Glucose Negative (Negative) Result Diagrams: 04/27/17 07:45 04/27/17 07:45 Lab Statement: Any lab studies that have been ordered have been reviewed, and results considered in the medical decision making process. - CT Abdomen/Pelvis CT Interpretation: No Acute Changes - No appreciable hydronephrosis or nephrolithiasis. ED physician has reviewed this report. CT Interpretation Completed By: Radiologist - Ultrasound No standard instances Ultrasound Interpretation: No Acute Changes - No acute sonographic pathology of the visualized portion of the abdomen. ED physician has reviewed this report. Ultrasound Interpretation Completed By: Radiologist - EKG 07:53 Cardiac Rate: Bradycardia EKG Rhythm: Sinus Bradycardia ST Segment: Non-Specific Ectopy: None EKG Interpretation: Nml AVIVCT. Nml QTc. Nml axis. EKG Comparison: No Significant Change - compared to EKG from 02/19/15 Re-Evaluation - Re-Evaluation First Eval Re-Evaluation Time: 12:18 - The patient will be discharged home. Patient is agreeable with this plan. Change: Improved Abdominal Pain Fem Course/Dx - Course Course Of Treatment: Allergies noted. Pt medications reviewed this visit. In the medical pathway, UA showed 1+ H blood. CT Abd/Pel and US Gallbladder were negative. Creatine was normal at 0.73. The patient is diagnosed with acute abdominal pain. The patient will be discharged home. Patient is agreeable with this plan. - Diagnoses Provider Diagnoses: Acute abdominal pain Discharge - Discharge Plan Condition: Stable Disposition: HOME Patient Education Materials: Acute Abdominal Pain (DC) Referrals: Arik Villegas MD [Primary Care Provider] - 2 Days Additional Instructions: We have given you a copy of your labs and your ultrasound of the gallbladder and the CT of your abdomen and pelvis. We did not identify any serious cause of your discomfort at this time. You may try some antacids as needed, and you should follow up with Dr. Villegas in the next few days if the discomfort continues. Return to the ER if you have any new or worsening symptoms. The documentation as recorded by the Lonnie payne Natalie accurately reflects the service I personally performed and the decisions made by , Brandy Guzman MD.
== END 2017-04-27 12:54 | disposition home or self-care (01) ==
LOC: ED 07:03
DX: R10.11 Right upper quadrant pain (principal); Z32.02 Encounter for pregnancy test, result negative; Z88.5 Allergy status to narcotic agent; Z88.2 Allergy status to sulfonamides
CPT/HCPCS: 36415; 74176; 76705; 80053; 81003; 81015; 82150; 83605; 83690; 83735; 84484; 84702; 85025; 85610; 85730; 86140; 93005; 96361; 96374; 99283; J1885

== ENCOUNTER 2017-06-09 15:13 | Emergency (ER) | payer MEDICARE, MEDICAID ==
[2017-06-09] MEDS ORDERED: LORazepam INJ* 2 MG/ML 1 ML VIAL IV PUSH ONE (15:52)
[2017-06-09] MEDS ORDERED: Propranolol TAB* 20 MG PO ONE (15:52)
[2017-06-09] MEDS ORDERED: LORazepam TAB(*) 1 MG PO ONE (16:01)
[2017-06-09 16:18] LABS: ABS Basophils 0.1 10^3/ul (0-0.2); ABS Eosinophils 0 10^3/ul (0-0.6); ABS Lymphocytes 2.1 10^3/ul (1.0-4.8); ABS Monocytes 0.8 10^3/ul (0-0.8); ABS Neutrophils 5.4 10^3/ul (1.5-7.7); ABS Nucleated RBC 0 10^3/ul; Eosinophil % 0.4 % (0-6); Hematocrit 40 % (35-47); Hemoglobin 13.6 g/dl (12.0-16.0); Lymphocyte % 24.6 % (25-47); Mean Corpuscular HGB Conc 34 g/dl (31-36); Mean Corpuscular Hemoglobin 31 pg (27-31); Mean Corpuscular Volume 91 fL (80-97); Mean Platelet Volume 8.7 um3 (7.4-10.4); Nucleated Red Blood Cells % 0; Platelet Count 256 10^3/ul (150-450); Red Cell Distribution Width 13 % (10.5-15); White Blood Count 8.4 10^3/ul (3.5-10.8)
[2017-06-09 16:30] LABS: EGFR Non-African American 75.4 (>60)
--- NOTE | 2017-06-09 17:38 | RAD ---
HISTORY: Chest pain COMPARISONS: February 23, 2013 VIEWS: 4: Frontal dual-energy and lateral views of the chest. FINDINGS: CARDIOMEDIASTINAL SILHOUETTE: The cardiomediastinal silhouette is normal. NATALEE: The natalee are normal. PLEURA: The costophrenic angles are sharp. No pleural abnormalities are noted. LUNG PARENCHYMA: The lungs are clear. ABDOMEN: The upper abdomen is clear. There is no subphrenic gas. BONES AND SOFT TISSUES: No bone or soft tissue abnormalities are noted. OTHER: None. IMPRESSION: NO ACTIVE CARDIOPULMONARY DISEASE.
[2017-06-09 17:43] LABS: Urine Appearance Cloudy; Urine Blood Negative (Negative); Urine Color Yellow; Urine Ketones Negative (Negative); Urine Protein Negative (Negative); Urine Specific Gravity 1.025 (1.010-1.030); Urine Urobilinogen Negative (Negative)
--- NOTE | 2017-06-09 18:34 | ED ---
Lakeshia Barger Gabriel, scribed for Vladimir Odonnell MD on 06/09/17 at 1607 . Complex/Multi-Sys Presentation - HPI Summary HPI Summary: This patient is a 41 year old F presenting to [facility] feeling overwhelmed and anxious. Due to her many medical issues and the recent of her son. The patient rates the pain 3/10 in severity. Patient reports n/v, CP, SOB, vision changes, tremors, GI issues, ADD, eye pain, anxiety, and diarrhea. Pt states it has been going on for four months and she cant take it anymore. Pt was diagnosed with hashimotos then hyperactive thyroid and is taking a beta michael. She also states she espinosa chronic lyme. She reports currently that she knows something is wrong with her and cant take it. - History Of Current Complaint Chief Complaint: EDChestPainROMI Time Seen by Provider: 06/09/17 15:28 Hx Obtained From: Patient Onset/Duration: Still Present Timing: Constant Severity Currently: Mild Severity Initially: Mild Associated Signs And Symptoms: Positive: Other - n/v, CP, SOB, vision changes, tremors, GI issues, ADD, eye pain, anxiety, and diarrhea. - Allergies/Home Medications Allergies/Adverse Reactions: Allergies Allergy/AdvReac Type Severity Reaction Status Date / Time bupropion Allergy Headache Verified 06/09/17 15:17 codeine Allergy Nausea And Verified 06/09/17 15:17 Vomiting Sulfa (Sulfonamide Allergy Hives Verified 06/09/17 15:17 Antibiotics) PMH/Surg Hx/FS Hx/Imm Hx Endocrine/Hematology History: Reports: Hx Systemic Lupus Erythematosus, Hx Thyroid Disease - Marjorie's, Other Endocrine/Hematological Disorders - Sjogren's syndrome, Lyme disease, Raynaud's disease Cardiovascular History: Reports: Hx Hypertension Respiratory History: Denies: Hx Asthma History: Denies: Hx Renal Disease Psychiatric History: Reports: Hx Depression Denies: Hx Eating Disorder, Hx of Violent Episodes Against Others, Hx Substance Abuse - Surgical History Surgery Procedure, Year, and Place: Partial hysterectomy 2006, [place]. 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 Date of Influenza Vaccine: does not do Infectious Disease History: No Infectious Disease History: Denies: Traveled Outside the [place] in Last 30 Days - Family History Known Family History: Positive: Diabetes - in siblings, Other - Depression ( father, sister), Leukemia (father, grandmother) - Social History Lives: With Family Alcohol Use: None Hx Substance Use: No Substance Use Type: Reports: Marijuana, Prescribed Substance Use Comment - Amount & Last Used: 1 month ago Hx Tobacco Use: No Smoking Status (MU): Never Smoked Tobacco Review of Systems Eyes: Other - eye pain Positive: Other - vision changes Positive: Chest Pain Positive: Shortness Of Breath Gastrointestinal: Other - "issues" Positive: Vomiting, Diarrhea, Nausea Positive: Other - tremors Positive: Anxious - and overwhelmed , Other - ADD All Other Systems Reviewed And Are Negative: Yes Physical Exam - Summary Physical Exam Summary: VITAL SIGNS: Reviewed. GENERAL: Patient is a well-developed and nourished female . the patient appears jittery and anxious HEAD AND FACE: No signs of trauma. No ecchymosis, hematomas or skull depressions. No sinus tenderness. EYES: PERRLA, EOMI x 2, No injected conjunctiva, no nystagmus. EARS: Hearing grossly intact. Ear canals and tympanic membranes are within normal limits. MOUTH: Oropharynx within normal limits. NECK: Supple, trachea is midline, no adenopathy, no JVD, no carotid bruit, no c- spine tenderness, neck with full ROM. CHEST: Symmetric, no tenderness at palpation LUNGS: Clear to auscultation bilaterally. No wheezing or crackles. CVS: tachycardia, S1 and S2 present, no murmurs or gallops appreciated. ABDOMEN: Soft, non-tender. No signs of distention. No rebound no guarding, and no masses palpated. Bowel sounds are normal. EXTREMITIES: FROM in all major joints, no edema, no cyanosis or clubbing. NEURO: Alert and oriented x 3. No acute neurological deficits. Speech is normal and follows commands. SKIN: Dry and warm Triage Information Reviewed: Yes Vital Signs On Initial Exam: Initial Vitals Temp Pulse Resp BP Pulse Ox 99.5 F 97 14 131/111 100 06/09/17 15:18 06/09/17 15:18 06/09/17 15:18 06/09/17 15:18 06/09/17 15:18 Vital Signs Reviewed: Yes Diagnostics - Vital Signs Vital Signs Temp Pulse Resp BP Pulse Ox 06/09/17 15:18 99.5 F 97 14 131/111 100 - Laboratory Result Diagrams: 06/09/17 16:00 06/09/17 16:00 Lab Statement: Any lab studies that have been ordered have been reviewed, and results considered in the medical decision making process. - Radiology CXR Radiology Interpretation Completed By: Radiologist - NO ACTIVE CARDIOPULMONARY DISEASE. ED physician has reviewed this radiology report. - EKG 15:29 Cardiac Rate: NL EKG Rhythm: Sinus Rhythm - at 88 BPM EKG Interpretation: so ST elevations Re-Evaluation - Re-Evaluation First Eval Re-Evaluation Time: 18:24 Change: Unchanged Comment: I discussed test results with patient. Complex Multi-Symp Course/Dx Assessment/Plan: This patient is a 41 year old F presenting to [facility] feeling overwhelmed and anxious. Due to her many medical issues and the recent of her son. The patient rates the pain 3/10 in severity. Patient reports n/v, CP, SOB, vision changes, tremors, GI issues, ADD, eye pain, anxiety, and diarrhea. Pt states it has been going on for four months and she cant take it anymore. Pt was diagnosed with hashimotos then hyperactive thyroid and is taking a beta michael. She also states she espinosa chronic lyme. She reports currently that she knows something is wrong with her and cant take it. An EKG reveals no ST elevations. CXR reveals, per radiologist, NO ACTIVE CARDIOPULMONARY DISEASE. Test results with no significant abnormalities her TSH and T4 are normal. UA negative for UTI. In the ED course the patient was given propanolol and ativan and symptoms resolved. The pt is hemodynamically stable, alert and oriented x3. Dx anxiety. Patient will be discharged and follow up from PCP. The patient is agreeable with this plan. - Diagnoses Provider Diagnoses: Anxiety Discharge - Sign-Out/Discharge Documenting (check all that apply): Discharge - Discharge Plan Condition: Stable Disposition: HOME Patient Education Materials: Anxiety (ED) Referrals: Arik Villegas MD [Primary Care Provider] - 4 Days Additional Instructions: RETURN TO THE EMERGENCY DEPARTMENT FOR CHANGING OR WORSENING SYMPTOMS. The documentation as recorded by the Lakeshia payne Gabriel accurately reflects the service I personally performed and the decisions made by me, Vladimir Odonnell MD.
[2017-06-09 18:57] VITALS: BP 138/89
== END 2017-06-09 18:57 | disposition home or self-care (01) ==
LOC: ED 15:13
DX: F41.9 Anxiety disorder, unspecified (principal); I10 Essential (primary) hypertension; R07.9 Chest pain, unspecified; R06.02 Shortness of breath; M32.9 Systemic lupus erythematosus, unspecified; E06.3 Autoimmune thyroiditis; M35.00 Sjogren syndrome, unspecified
CPT/HCPCS: 36415; 71046; 80053; 81003; 82550; 83605; 83735; 83880; 84436; 84443; 84484; 84702; 85025; 93005; 99282; A9270-GY

== ENCOUNTER 2017-09-27 04:54 | Emergency (ER) | payer MEDICARE, MEDICAID ==
[2017-09-27] MEDS ORDERED: NS 0.9% 1000 ML* 1,000 ML IV ONE (05:42)
[2017-09-27 06:05] LABS: ABS Basophils 0 10^3/ul (0-0.2); ABS Eosinophils 0.1 10^3/ul (0-0.6); ABS Lymphocytes 1.7 10^3/ul (1.0-4.8); ABS Monocytes 0.8 10^3/ul (0-0.8); ABS Neutrophils 6.7 10^3/ul (1.5-7.7); ABS Nucleated RBC 0 10^3/ul; Eosinophil % 0.7 % (0-6); Hematocrit 37 % (35-47); Hemoglobin 12.5 g/dl (12.0-16.0); Mean Corpuscular HGB Conc 34 g/dl (31-36); Mean Corpuscular Hemoglobin 31 pg (27-31); Mean Corpuscular Volume 92 fL (80-97); Mean Platelet Volume 8.3 um3 (7.4-10.4); Nucleated Red Blood Cells % 0; Platelet Count 240 10^3/ul (150-450); Red Blood Count 4.01 10^6/ul (4.00-5.40); Red Cell Distribution Width 13 % (10.5-15); White Blood Count 9.2 10^3/ul (3.5-10.8)
--- NOTE | 2017-09-27 06:16 | ED ---
HPI Chest Pain - HPI Summary HPI Summary: Patient is a 42-year-old female with a history of chronic Lyme disease, anxiety , and heart palpitations presenting to the ED 1 hour after experiencing an episode of right-sided chest pain which radiates around to the right shoulder blade, feelings of heart palpitations, diaphoresis and vomiting. She states she awoke with diaphoresis with other symptoms to follow. states she was extremely pale and called 911. The ambulance was en route, patient states she began to improve. While driving by private car to the ED, patient experienced another episode of diaphoresis and another episode of vomiting. Again, on arrival she is feeling much improved. She discontinued her antibiotics for a root canal over a week ago, but denies any other change of medications. She denies any abdominal pain, urinary symptoms, low back pain, weakness, visual changes. She does have a history of anxiety and states this could the cause of some of her symptoms. She continues to see Dr. Villegas for her chronic Lyme disease, but is currently not on antibiotics for this. Denies any known cardiac history. - History of Current Complaint Chief Complaint: EDChestPainROMI Time Seen by Provider: 09/27/17 05:33 Hx Obtained From: Patient Hx Last Menstrual Period: hysterectomy Onset/Duration: Started Hours Ago Timing: Lasting Minutes Initial Severity: Moderate Current Severity: None Pain Intensity: 6 Pain Scale Used: 0-10 Numeric Chest Pain Location: Right Anterior Chest Pain Radiates: Yes Chest Pain Radiates To:: Back Character: Burning, Dull/Aching Aggravating Factor(s): Nothing Alleviating Factor(s): Rest Associated Signs and Symptoms: Positive: Chest Pain, Anxiety, Recent Stress, Lightheadedness, Diaphoresis, Nausea - Risk Factors Pulmonary Embolism Risk Factors: Negative TAD Risk Factors: Negative - Allergy/Home Medications Allergies/Adverse Reactions: Allergies Allergy/AdvReac Type Severity Reaction Status Date / Time bupropion Allergy Headache Verified 06/09/17 15:17 codeine Allergy Nausea And Verified 06/09/17 15:17 Vomiting Sulfa (Sulfonamide Allergy Hives Verified 06/09/17 15:17 Antibiotics) PMH/Surg Hx/FS Hx/Imm Hx Previously Healthy: Yes Endocrine/Hematology History: Reports: Hx Systemic Lupus Erythematosus, Hx Thyroid Disease - Marjorie's, Other Endocrine/Hematological Disorders - Sjogren's syndrome, Lyme disease, Raynaud's disease Cardiovascular History: Reports: Hx Hypertension Respiratory History: Denies: Hx Asthma History: Denies: Hx Renal Disease Psychiatric History: Reports: Hx Depression Denies: Hx Eating Disorder, Hx of Violent Episodes Against Others, Hx Substance Abuse - Surgical History Surgery Procedure, Year, and Place: Partial hysterectomy 2006, Eddi Escobar [place]. 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 Date of Influenza Vaccine: does not do Hx Pertussis Vaccination: No Immunizations Up to Date: Yes Infectious Disease History: No Infectious Disease History: Denies: Traveled Outside the [place] in Last 30 Days - Family History Known Family History: Positive: Diabetes - in siblings, Other - Depression ( father, sister), Leukemia (father, grandmother) - Social History Occupation: Employed Full-time Lives: With Family Alcohol Use: None Hx Substance Use: No Substance Use Type: Reports: Marijuana, Prescribed Substance Use Comment - Amount & Last Used: 1 month ago Hx Tobacco Use: No Smoking Status (MU): Never Smoked Tobacco Review of Systems Positive: Chills, Skin Diaphoresis. Negative: Fever, Fatigue Negative: Epistaxis, Dental Pain, Sore Throat Positive: Chest Pain. Negative: Palpitations Negative: Shortness Of Breath, Cough Positive: Vomiting, Nausea. Negative: Abdominal Pain, Diarrhea Negative: Arthralgia, Myalgia Neurological: Negative Psychological: Normal All Other Systems Reviewed And Are Negative: Yes Physical Exam Triage Information Reviewed: Yes Vital Signs On Initial Exam: Initial Vitals Temp Pulse Resp BP Pulse Ox 97.6 F 112 20 112/67 96 09/27/17 04:55 09/27/17 04:55 09/27/17 04:55 09/27/17 04:55 09/27/17 04:55 Vital Signs Reviewed: Yes Appearance: Positive: Well-Appearing, Well-Nourished Skin: Positive: Skin Color Reflects Adequate Perfusion Head/Face: Positive: Normal Head/Face Inspection Eyes: Positive: EOMI, SHRAVAN, Conjunctiva Clear Neck: Positive: Supple, Nontender, No Lymphadenopathy Respiratory/Lung Sounds: Positive: Clear to Auscultation, Breath Sounds Present Cardiovascular: Positive: RRR, Pulses are Symmetrical in both Upper and Lower Extremities Musculoskeletal: Positive: Normal, Strength/ROM Intact Neurological: Positive: Sensory/Motor Intact, Alert, Oriented to Person Place, Time, Speech Normal Psychiatric: Positive: Normal, Affect/Mood Appropriate AVPU Assessment: Alert Diagnostics - Vital Signs Vital Signs Temp Pulse Resp BP Pulse Ox 09/27/17 06:00 17 09/27/17 05:54 19 113/75 09/27/17 05:19 61 20 118/70 99 09/27/17 04:55 97.6 F 112 20 112/67 96 - Laboratory Lab Results: Lab Results 09/27/17 Range/Units 05:51 WBC 9.2 (3.5-10.8) 10^3/ul RBC 4.01 (4.00-5.40) 10^6/ul Hgb 12.5 (12.0-16.0) g/dl Hct 37 (35-47) % MCV 92 (80-97) fL MCH 31 (27-31) pg MCHC 34 (31-36) g/dl RDW 13 (10.5-15) % Plt Count 240 (150-450) 10^3/ul MPV 8.3 (7.4-10.4) um3 Neut % (Auto) 72.4 (38-83) % Lymph % (Auto) 18.0 L (25-47) % Miner % (Auto) 8.4 H (0-7) % Eos % (Auto) 0.7 (0-6) % Baso % (Auto) 0.5 (0-2) % Absolute Neuts (auto) 6.7 (1.5-7.7) 10^3/ul Absolute Lymphs (auto) 1.7 (1.0-4.8) 10^3/ul Absolute Monos (auto) 0.8 (0-0.8) 10^3/ul Absolute Eos (auto) 0.1 (0-0.6) 10^3/ul Absolute Basos (auto) 0 (0-0.2) 10^3/ul Absolute Nucleated RBC 0 10^3/ul Nucleated RBC % 0 Result Diagrams: 09/27/17 05:51 09/27/17 05:51 Lab Statement: Any lab studies that have been ordered have been reviewed, and results considered in the medical decision making process. Chest Pain Course/Dx - Course Course Of Treatment: On arrival, EKG is obtained immediately which shows sinus bradycardia at 52, probable left ventricular hypertrophy. Labs obtained: troponin 0.00, d-dimer <200, all labs WNL. Patient is given 1 L normal saline. She is feeling much improved during her stay. I feel this is a near syncopal episode secondary to no PO intake during the afternoon or evening yesterday as well as exacerbated with her intense anxiety, which is often worse at night. There is no evidence of a CAD/ACS. Chest xray read by myself as negative for acute cardiopulmonary disease. No evidence of PE or other cardiac pathology. I feel she has a safe discharge and is given strict return precautions. Discharge plan home at this time and have encouraged drinking plenty of fluids as well as eating BLAND diet today. She declines any nausea medication at this time. Vital signs remained stable throughout her stay. - Chest Pain Differential Diagnosis/HQI/PQRI: Other: - syncope, hypoglycemia, anxiety - Diagnoses Provider Diagnoses: Vasovagal near syncope Discharge - Sign-Out/Discharge Documenting (check all that apply): Patient Departure - Discharge Plan Condition: Stable Disposition: HOME Patient Education Materials: Near Syncope (ED) Referrals: Arik Villegas MD [Primary Care Provider] - Additional Instructions: It appears you are having near syncopal episodes due to unregulated blood sugars This is common when you are not eating/drinking properly Drink plenty of fluids including gatorade or juice Rest Eat gentle foods - rice, chicken noodle soup, etc. If you develop worsening symptoms, return to the ED - Billing Disposition and Condition Condition: STABLE Disposition: Home
[2017-09-27 06:28] LABS: EGFR Non-African American 81.8 (>60)
[2017-09-27 07:34] VITALS: BP 119/68
--- NOTE | 2017-09-27 13:14 | RAD ---
INDICATION: Chest pain, dizziness, nausea. Hypertension. COMPARISON: June 09, 2017 TECHNIQUE: Dual energy PA and routine lateral views of the chest were obtained. REPORT: Clear lungs and pleural spaces. Negative for pneumothorax. The heart, pulmonary vasculature, and mediastinal contours are unremarkable. Unremarkable osseous structures and soft tissue contours. IMPRESSION: #. No evidence for acute intrathoracic disease. R1
== END 2017-09-27 07:35 | disposition home or self-care (01) ==
LOC: ED 04:54
DX: R55 Syncope and collapse (principal); R00.1 Bradycardia, unspecified; R07.89 Other chest pain; R61 Generalized hyperhidrosis; R11.0 Nausea; F41.9 Anxiety disorder, unspecified; F43.9 Reaction to severe stress, unspecified; Z88.5 Allergy status to narcotic agent; Z88.2 Allergy status to sulfonamides; Z88.8 Allergy status to other drugs, medicaments and biological substances; Z83.3 Family history of diabetes mellitus; Z81.8 Family history of other mental and behavioral disorders; Z80.6 Family history of leukemia
CPT/HCPCS: 36415; 71046; 80053; 83605; 83735; 83874; 84484; 84702; 85025; 85379; 93005; 96360; 99283

== ENCOUNTER 2017-12-20 18:30 | Observation (INO) | payer MEDICARE, MEDICAID ==
[2017-12-20] MEDS ORDERED: Ketorolac INJ* 30 MG/ML 1 ML VIAL IV ONE (18:56)
[2017-12-20] MEDS ORDERED: NS 0.9% 1000 ML* 2,000 ML IV ONE (18:56)
[2017-12-20] MEDS ORDERED: Pantoprazole IV* 40 MG IV ONE (19:02)
[2017-12-20] MEDS ORDERED: Al Hydrox/Mg Hydrox/Simet LIQ* 30 ML UDC PO ONE (19:03)
[2017-12-20] MEDS ORDERED: Lidocaine 2% VISCOUS* 15 ML UDC PO ONE (19:03)
[2017-12-20 19:16] LABS: ABS Basophils 0 10^3/ul (0-0.2); ABS Eosinophils 0 10^3/ul (0-0.6); ABS Lymphocytes 3.1 10^3/ul (1.0-4.8); ABS Monocytes 0.7 10^3/ul (0-0.8); ABS Neutrophils 4.6 10^3/ul (1.5-7.7); ABS Nucleated RBC 0 10^3/ul; Eosinophil % 0.3 % (0-6); Hematocrit 39 % (35-47); Hemoglobin 13.6 g/dl (12.0-16.0); Lymphocyte % 36.6 % (25-47); Mean Corpuscular HGB Conc 34 g/dl (31-36); Mean Corpuscular Hemoglobin 31 pg (27-31); Mean Corpuscular Volume 90 fL (80-97); Mean Platelet Volume 8.1 um3 (7.4-10.4); Nucleated Red Blood Cells % 0; Platelet Count 269 10^3/ul (150-450); Red Blood Count 4.39 10^6/ul (4.00-5.40); Red Cell Distribution Width 13 % (10.5-15); White Blood Count 8.5 10^3/ul (3.5-10.8)
[2017-12-20 19:28] LABS: INR 0.92 (0.77-1.02)
[2017-12-20 19:34] LABS: EGFR Non-African American 97.7 (>60)
[2017-12-20] MEDS ORDERED: Potassium Chlor TAB* 20 MEQ TAB.ER PO ONE (20:02)
[2017-12-20] MEDS ORDERED: Ondansetron INJ* 2 MG/ML VIAL IV ONE (21:05)
[2017-12-20] MEDS ORDERED: Morphine INJ* 4 MG/ML 1 ML SYRINGE (NEW SYRINGE VERSION) IV ONE (21:06)
--- NOTE | 2017-12-20 23:56 | ED ---
HPI Chest Pain - HPI Summary HPI Summary: Patient is a 42 y/o F BIBA w/ c/o chest pain and epigastric pain. Provider in room at 1855. She reports Hx of "gallbladder attacks" for months. Patient reports that these attacks resolved for a period of time but have since resumed. She states that she has presumed cholelithiasis and there are plans to do a HIDA test in three days. She reports experiencing an attack last night along with night sweats. She had some relief for some time but then experienced another attack today which she describes as the worst episode she has had. Patient notes epigastric pain with radiation to chest along with RODRÍGUEZ, dizziness and nausea. She also reports radiation of pain to LUQ as opposed to RUQ, which is more typical of her prior episodes. However, she notes that her pain location has been shifting. Pain is described as sharp and intermittent. Diarrhea with no blood for the past two days is also reported. SOB, vomiting, hematuria and dysuria are denied. She reports fever last night as well, unmeasured. In the room, patient burps and reports a foul taste in mouth. She also notes recent weight loss. ASA was given in ambulance. PMHx of GERD, chronic Lyme, and Marjorie's. PSHx of partial hysterectomy, patient does not get periods. FMHx of strokes, heart disease, and leukemia. On triage, pain is rated 6/10, nothing is noted to aggravate/alleviate Sx. Home medications and allergies are reviewed. Vitals in room were 100 o2, 138/95 BP. EMS stated that pt was going in an out of afib when they first encountered pt, however no rhythm strips are provided or scanned into the chart, so this is not documented. Allergies/Adverse Reactions: Allergies Allergy/AdvReac Type Severity Reaction Status Date / Time bupropion Allergy Headache Verified 06/09/17 15:17 clarithromycin [From Biaxin] Allergy Rash Verified 12/20/17 18:39 codeine Allergy Nausea And Verified 06/09/17 15:17 Vomiting Sulfa (Sulfonamide Allergy Hives Verified 06/09/17 15:17 Antibiotics) Home Medications: Home Medications Gabapentin [Neurontin] 300 mg PO TID PRN 12/20/17 [History Confirmed 12/20/17] Oxycodone IR 10 MG(NF) 1 tab PO TID PRN 12/20/17 [History Confirmed 12/20/17] - History of Current Complaint Chief Complaint: EDChestPainROMI Time Seen by Provider: 12/20/17 18:53 Hx Obtained From: Patient, EMS Hx Last Menstrual Period: hysterectomy Onset/Duration: Started Hours Ago - worst episode of gallbladder attack reported to onset today [employer], Started Days Ago - diarrhea two days, gallbladder attack last night, Started Weeks Ago - months of episodes of gallbladder attacks , Still Present Timing: Intermittent - gall bladder attacks are reported to be intermittent, Lasting Hours Initial Severity: Severe Current Severity: Moderate - 6/10 Pain Intensity: 6 Pain Scale Used: 0-10 Numeric - 6/10 Chest Pain Location: Diffuse Chest Pain Radiates: Yes Chest Pain Radiates To:: Other - pain radiation from epigastric area to chest and LUQ. Character: Sharp/Stabbing Aggravating Factor(s): Nothing Alleviating Factor(s): Nothing Associated Signs and Symptoms: Positive: Chest Pain, Headaches, Dizziness, Fever , Diaphoresis, Nausea, Abdominal Pain - epigastric, LUQ, Other: - POSITIVE: gallbladder attacks, diarrhea, recent weight loss, burping with foul taste in mouth NEGATIVE: hematuria and dysuria. Negative: Shortness of Breath, Vomiting Related History: Similar Episode/Dx as: - "gallbladder attack" - Allergy/Home Medications Allergies/Adverse Reactions: Allergies Allergy/AdvReac Type Severity Reaction Status Date / Time bupropion Allergy Headache Verified 06/09/17 15:17 clarithromycin [From Biaxin] Allergy Rash Verified 12/20/17 18:39 codeine Allergy Nausea And Verified 06/09/17 15:17 Vomiting Sulfa (Sulfonamide Allergy Hives Verified 06/09/17 15:17 Antibiotics) Home Medications: Home Medications Gabapentin [Neurontin] 300 mg PO TID PRN 12/20/17 [History Confirmed 12/20/17] Oxycodone IR 10 MG(NF) 1 tab PO TID PRN 12/20/17 [History Confirmed 12/20/17] PMH/Surg Hx/FS Hx/Imm Hx Previously Healthy: No Endocrine/Hematology History: Reports: Hx Systemic Lupus Erythematosus, Hx Thyroid Disease - Marjorie's, Other Endocrine/Hematological Disorders - Sjogren's syndrome, Lyme disease, Raynaud's disease Cardiovascular History: Reports: Hx Hypertension Respiratory History: Denies: Hx Asthma History: Denies: Hx Renal Disease Psychiatric History: Reports: Hx Depression Denies: Hx Eating Disorder, Hx of Violent Episodes Against Others, Hx Substance Abuse - Surgical History Surgery Procedure, Year, and Place: Partial hysterectomy 2006, [facility] [place]. 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 Date of Influenza Vaccine: does not do Infectious Disease History: No Infectious Disease History: Denies: Traveled Outside the [place] in Last 30 Days - Family History Known Family History: Positive: Cardiac Disease, Diabetes - in siblings, Other - Depression (father, sister), Leukemia (father, grandmother), stroke - Social History Lives: With Family Alcohol Use: Rare Hx Substance Use: Yes Substance Use Type: Reports: Marijuana, Prescribed Hx Tobacco Use: No Smoking Status (MU): Never Smoked Tobacco Review of Systems Positive: Fever - fever reported, on vitals temp is 99.2 F , Skin Diaphoresis, Other - recent weight loss Positive: Chest Pain Negative: Shortness Of Breath Positive: Abdominal Pain - epigastric and LUQ , Diarrhea, Nausea, Other - gallbladder attacks, patient burps and reports a foul taste in mouth. Negative : Vomiting Negative: dysuria, hematuria Skin: Negative Neurological: Negative Psychological: Normal All Other Systems Reviewed And Are Negative: Yes Physical Exam - Summary Physical Exam Summary: Appearance: ill-appearing, minimal pain distress, well-nourished Skin: Warm, color reflects adequate perfusion, dry Head: Normal Head/Face inspection, atraumatic Eyes: Conjunctiva clear ENT: Normal inspection Neck: Supple, no nodes, no JVD Respiratory: Lungs clear, normal breath sounds, no respiratory distress Cardio: RRR, No murmur, pulses normal, brisk capillary refill, non-reproducible chest pain Abdomen: Soft, epigastric and upper abdominal tenderness, no masses, no guarding , no rebound, nondistended Bowel sounds: Present Musculoskeletal: Strength Intact/ROM intact, no calf tenderness, no edema. Psychological: Normal Neuro: Alert, muscle tone normal, no focal deficit Triage Information Reviewed: Yes Vital Signs On Initial Exam: Initial Vitals Temp Pulse Resp BP Pulse Ox 99.2 F 100 18 138/95 99 12/20/17 18:34 12/20/17 18:34 12/20/17 18:34 12/20/17 18:34 12/20/17 18:34 Vital Signs Reviewed: Yes Diagnostics - Vital Signs Vital Signs Temp Pulse Resp BP Pulse Ox 12/20/17 22:45 89 17 147/87 100 12/20/17 22:16 61 17 128/83 98 12/20/17 22:00 78 28 97 12/20/17 21:45 66 11 119/91 97 12/20/17 21:33 20 12/20/17 21:15 75 15 140/81 100 12/20/17 21:01 63 12 119/81 100 12/20/17 21:00 70 14 100 12/20/17 20:45 65 19 128/102 100 12/20/17 20:15 67 21 111/76 99 12/20/17 20:09 67 13 134/77 99 12/20/17 20:00 72 18 99 12/20/17 19:34 68 12 131/81 100 12/20/17 19:16 77 18 122/99 100 12/20/17 19:04 77 21 135/91 100 12/20/17 19:01 73 20 127/86 100 12/20/17 19:00 81 20 100 12/20/17 18:34 99.2 F 100 21 138/95 99 - Laboratory Lab Results: Lab Results 12/20/17 12/20/17 12/20/17 Range/Units 19:10 19:10 19:10 WBC 8.5 (3.5-10.8) 10^3/ul RBC 4.39 (4.00-5.40) 10^6/ul Hgb 13.6 (12.0-16.0) g/dl Hct 39 (35-47) % MCV 90 (80-97) fL MCH 31 (27-31) pg MCHC 34 (31-36) g/dl RDW 13 (10.5-15) % Plt Count 269 (150-450) 10^3/ul MPV 8.1 (7.4-10.4) um3 Neut % (Auto) 54.0 (38-83) % Lymph % (Auto) 36.6 (25-47) % Imperial % (Auto) 8.6 H (0-7) % Eos % (Auto) 0.3 (0-6) % Baso % (Auto) 0.5 (0-2) % Absolute Neuts (auto) 4.6 (1.5-7.7) 10^3/ul Absolute Lymphs (auto) 3.1 (1.0-4.8) 10^3/ul Absolute Monos (auto) 0.7 (0-0.8) 10^3/ul Absolute Eos (auto) 0 (0-0.6) 10^3/ul Absolute Basos (auto) 0 (0-0.2) 10^3/ul Absolute Nucleated RBC 0 10^3/ul Nucleated RBC % 0 INR (Anticoag Therapy) (0.77-1.02) APTT (26.0-36.3) seconds D-Dimer, Quantitative (Less Than 230) ng/mL Sodium 140 (135-145) mmol/L Potassium 3.3 L (3.5-5.0) mmol/L Chloride 106 (101-111) mmol/L Carbon Dioxide 26 (22-32) mmol/L Anion Gap 8 (2-11) mmol/L BUN 10 (6-24) mg/dL Creatinine 0.66 (0.51-0.95) mg/dL Est GFR ( Amer) 118.3 (>60) Est GFR (Non-Af Amer) 97.7 (>60) BUN/Creatinine Ratio 15.2 (8-20) Glucose 105 H (70-100) mg/dL Lactic Acid 1.2 (0.5-2.0) mmol/L Calcium 9.9 (8.6-10.3) mg/dL Magnesium 2.0 (1.9-2.7) mg/dL Total Bilirubin 0.90 (0.2-1.0) mg/dL AST 12 L (13-39) U/L ALT 10 (7-52) U/L Alkaline Phosphatase 57 (34-104) U/L Total Creatine Kinase 42 (10-223) U/L CK-MB (CK-2) 0.7 (0.6-6.3) ng/mL Troponin I 0.00 (<0.04) ng/mL B-Natriuretic Peptide ( - 100) pg/mL Total Protein 7.4 (6.4-8.9) g/dL Albumin 4.6 (3.2-5.2) g/dL Globulin 2.8 (2-4) g/dL Albumin/Globulin Ratio 1.6 (1-3) TSH 0.73 (0.34-5.60) mcIU/mL Thyroxine (T4) 10.31 (6.09-12.23) mcg/mL 12/20/17 12/20/17 12/20/17 Range/Units 19:10 19:10 21:59 WBC (3.5-10.8) 10^3/ul RBC (4.00-5.40) 10^6/ul Hgb (12.0-16.0) g/dl Hct (35-47) % MCV (80-97) fL MCH (27-31) pg MCHC (31-36) g/dl RDW (10.5-15) % Plt Count (150-450) 10^3/ul MPV (7.4-10.4) um3 Neut % (Auto) (38-83) % Lymph % (Auto) (25-47) % Imperial % (Auto) (0-7) % Eos % (Auto) (0-6) % Baso % (Auto) (0-2) % Absolute Neuts (auto) (1.5-7.7) 10^3/ul Absolute Lymphs (auto) (1.0-4.8) 10^3/ul Absolute Monos (auto) (0-0.8) 10^3/ul Absolute Eos (auto) (0-0.6) 10^3/ul Absolute Basos (auto) (0-0.2) 10^3/ul Absolute Nucleated RBC 10^3/ul Nucleated RBC % INR (Anticoag Therapy) 0.92 (0.77-1.02) APTT 31.4 (26.0-36.3) seconds D-Dimer, Quantitative < 200 (Less Than 230) ng/mL Sodium (135-145) mmol/L Potassium (3.5-5.0) mmol/L Chloride (101-111) mmol/L Carbon Dioxide (22-32) mmol/L Anion Gap (2-11) mmol/L BUN (6-24) mg/dL Creatinine (0.51-0.95) mg/dL Est GFR ( Amer) (>60) Est GFR (Non-Af Amer) (>60) BUN/Creatinine Ratio (8-20) Glucose (70-100) mg/dL Lactic Acid (0.5-2.0) mmol/L Calcium (8.6-10.3) mg/dL Magnesium (1.9-2.7) mg/dL Total Bilirubin (0.2-1.0) mg/dL AST (13-39) U/L ALT (7-52) U/L Alkaline Phosphatase (34-104) U/L Total Creatine Kinase (10-223) U/L CK-MB (CK-2) (0.6-6.3) ng/mL Troponin I 0.07 H* (<0.04) ng/mL B-Natriuretic Peptide 10 ( - 100) pg/mL Total Protein (6.4-8.9) g/dL Albumin (3.2-5.2) g/dL Globulin (2-4) g/dL Albumin/Globulin Ratio (1-3) TSH (0.34-5.60) mcIU/mL Thyroxine (T4) (6.09-12.23) mcg/mL Result Diagrams: 12/21/17 06:01 12/21/17 06:01 Lab Statement: Any lab studies that have been ordered have been reviewed, and results considered in the medical decision making process. - Radiology CXR Xray Interpretation: No Acute Changes Radiology Interpretation Completed By: ED Physician - no acute disease, pending offical report - EKG 1839 Cardiac Rate: NL - rate of 79 bpm EKG Rhythm: Sinus Rhythm ST Segment: Non-Specific Ectopy: None EKG Interpretation: nl AVIVCT, nl QTc, nl axis, no acute changes EKG Comparison: No Significant Change - compared with EKG from 09/27/17 2114 Cardiac Rate: NL - rate of 60 BPM EKG Rhythm: Sinus Rhythm ST Segment: Non-Specific Ectopy: None EKG Interpretation: nl AVIVCT, nl QTc, nl axis, no acute changes EKG Comparison: No Significant Change - compared with prior EKG from today at 1840 Re-Evaluation - Re-Evaluation First Eval Re-Evaluation Time: 20:07 Comment: Patient reports left upper chest pain, no SOB, RUQ pain, wants to try leeroy franky. She states Sx feel like gallbladder pain Second Eval Re-Evaluation Time: 22:38 Comment: 0.07 second trop; this was discussed with patient and she was informed that she should be admitted. Patient is agreeable. Chest Pain Course/Dx - Course Course Of Treatment: Patient is a 42 y/o F BIBA w/ c/o chest pain and epigastric pain. Provider in room at 1855. She reports Hx of "gallbladder attacks" for months. Patient reports that these attacks resolved for a period of time but have since resumed. She states that she has presumed cholelithiasis and there are plans to do a HIDA test in three days. She reports experiencing an attack last night along with night sweats. She had some relief for some time but then experienced another attack today which she describes as the worst episode she has had. Patient notes epigastric pain with radiation to chest along with RODRÍGUEZ, dizziness and nausea. She also reports radiation of pain to LUQ as opposed to RUQ, which is more typical of her prior episodes. However, she notes that her pain location has been shifting. Pain is described as sharp and intermittent. Diarrhea with no blood for the past two days is also reported. SOB , vomiting, hematuria and dysuria are denied. She reports fever last night as well, unmeasured. In the room, patient burps and reports a foul taste in mouth. She also notes recent weight loss. ASA was given in ambulance. PMHx of GERD, chronic Lyme, and Marjorie's. PSHx of partial hysterectomy, patient does not get periods. Physical showed patient is ill-appearing, minimal pain distress. Chest pain is non-reproducible, abdomen is soft with tenderness at epigastric and upper abdominal region. Patient was given fluids, Klor Con Er tab 40 meq, Protonix 40 mg IV ED ONCE, Zofran 4 mg IV ED OCNE, morphine 4 mg IV ED ONCE, lidocaine 15 ml PO ONCE, toradol 30 md ED ONCE, Maalox Plus 30 ml PO ONCE. CXR showed no acute disease. EKG at 1839 showed normal sinus rhythm with rate of 79 bpm, non specific ST, no ectopy, nl AVIVCT, nl QTc, nl axis, no acute changes, no significant change from EKG of 09/27/17. Labs showed T4 10.31, TSH 0.73, AST 12, BNP 10, CK-MB 0.7, WBC 8.5. First trop was 0, second 0.07. EKG at 2114 showed normal sinus rhythm with rate of 79 bpm, non specific ST, no ectopy, nl AVIVCT, nl QTc, nl axis, no acute changes, no significant change from EKG from 1840 EKG. 2237 Candace work remittance clerk paging nurse phlebotomy supervisor for admission at this time. 2315 - Patients case was discussed with CHARO Nevarez at time. Dr. Gonzales and phlebotomy supervisor at CAT call currently. 17 - Patient's case was discussed with Dr. Gonzales, patient will be admitted to [facility] [place]. Gonzales. Patient is agreeable with admission. Dx of elevated troponin, chest pain, abdominal pain. - Chest Pain Differential Diagnosis/HQI/PQRI: Acute RI, ACS, Chest Wall, GI Disease - Diagnoses Provider Diagnoses: Elevated troponin, Chest pain, Abdominal pain - Provider Notifications Discussed Care Of Patient With: Nancy Gonzales Time Discussed With Above Provider: 00:18 Instructed by Provider To: Other - 2237 Candace work remittance clerk paging nurse phlebotomy supervisor for admission at this time. 2315 - Patients case was discussed with CHARO Nvearez at time. Dr. Gonzales and phlebotomy supervisor at [facility] call currently. 17 - Patient's case was discussed with Dr. Gonzales, patient will be admitted to [facility] by [place]. Gonzales. Patient is agreeable with admission. Dx of elevated troponin, chest pain, abdominal pain. - Critical Care Time Critical Care Time: 30-74 min - 30 minutes Discharge - Sign-Out/Discharge Documenting (check all that apply): Patient Departure - admit - Discharge Plan Condition: Stable Disposition: ADMITTED TO [facility] - Billing Disposition and Condition Condition: STABLE Disposition: Admitted to [facility] - Attestation Statements Document Initiated by Sukhjindere: Yes Documenting Scribe: Jamaal Hinojosa Provider For Whom Jefry is Documenting (Include Credential): Brandy Guzman MD Scribe Attestation: Jamaal Barger , scribed for Brandy Guzman MD on 12/22/17 at 0002. Scribe Documentation Reviewed: Yes Provider Attestation: The documentation as recorded by the Jamaal payne accurately reflects the service I personally performed and the decisions made by me, Brandy Guzman MD
[2017-12-21] MEDS ORDERED: Ondansetron INJ* 2 MG/ML VIAL IV PRN (00:17)
[2017-12-21] MEDS ORDERED: Nitroglycerin TAB 0.4 MG* 0.4 MG TAB SL PRN (00:21)
[2017-12-21 00:52] LABS: Urine Appearance Cloudy; Urine Blood 1+ (Negative); Urine Color Yellow; Urine Ketones 1+ (Negative); Urine Protein Negative (Negative); Urine Red Blood Cell 1+(3-5/hpf) (Absent); Urine Specific Gravity 1.019 (1.010-1.030); Urine Urobilinogen Negative (Negative); Urine White Blood Cell Trace(0-5/hpf) (Absent)
[2017-12-21] MEDS: Carvedilol TAB* 3.125 MG PO SCH ×3 (02:40→19:43)
--- NOTE | 2017-12-21 03:41 | HP ---
AMENDED REPORT NOW INCLUDES COSIGNER DESIGNATION CC: Dr. Arik Villegas * ADMISSION HISTORY AND PHYSICAL: DATE OF ADMISSION: 12/21/17 PRIMARY CARE PROVIDER: Dr. Arik Villegas. MY ATTENDING WHILE IN THE HOSPITAL: Dr. Nancy Gonzales* (dictated by CHARO Mazariegos). CHIEF COMPLAINT: Chest pain, abdominal pain. HISTORY OF PRESENT ILLNESS: Ms. Belle is a 42-year-old female with past medical history significant for hyperthyroidism in association with thyroid nodules, Lyme disease with chronic symptoms that she attributes to Lyme disease with a long-term history of epigastric pain, which has been evaluated numerous time looking at including with an EGD, gallbladder ultrasound, and CT of the abdomen and pelvis. The patient was scheduled for HIDA scan, which she did not go to. The patient approximately 5 p.m. today, had a severe pain in her epigastric area which radiated into her chest. The patient recalls the pain was cramping, aching at 10/10 at its worse in both abdomen and her chest. The patient called emergency department. The patient had no shortness of breath, but had nausea and diaphoresis associated with this pain. The pain diminished. The patient had aspirin and nitroglycerin in the ambulance, which did not help a great deal. The patient in the ambulance was stated to has been going in and out of atrial fibrillation based on their monitor with pulse rates in the low 100s with worsening of her chest pain while this was happening. The patient states that while she was in the ambulance, she also had numbness in her left arm. The patient states that this pain has been going on for long time , but had been getting worse over the past week. The patient had recently been evaluated through [facility] for her thyroid nodule with a radioactive iodine uptake scan, which she states was normal. The patient has been having issues with palpitations and "heart flips" for a while that will occur at all times and wake her up from bed. The patient states that she before being diagnosed with "chronic Lyme disease" was believed to have had a rheumatologic disorder and was treated with immunosuppressive therapy without effect. The patient states that the only thing that helped her was antibiotic treatment. The patient states that her son in an accident late last year and since then, she has been under a quite a bit of stress. The patient states that she has not been taking her medications including omeprazole or gabapentin and she has not been going to scheduled appointments including for her HIDA scan. The patient at the time of evaluation has chest pain, which she states is 4/10. The patient is also having significant twitches, which she states are new today and are quite annoying. The patient has intermittent diarrhea alternating with constipation. The patient in the emergency department was given morphine, which took away her pain entirely as well as Toradol and a GI cocktail. The patient was previously on beta-michael, which help control her palpitations. The patient had initial troponin, which was 0.00 and then elevated troponin 0.07 in the emergency department. Due to concern of elevated troponin and ongoing chest pain, we were asked to evaluate for admission. PAST MEDICAL HISTORY: Abdominal pain, unknown etiology; constipation alternating with diarrhea; thyroid nodules; Lyme disease. PAST SURGICAL HISTORY: Partial hysterectomy and tonsillectomy. MEDICATIONS: The patient has not been taking any medications at home. ALLERGIES: BUPROPION, CLARITHROMYCIN, CODEINE, and SULFA. FAMILY HISTORY: The patient's mother had CVA and diabetes. The patient's father of leukemia. The patient has a brother and sister with gallbladder disease and sister with Marjorie's thyroiditis. REVIEW OF SYSTEMS: A 14-point review of systems was reviewed and is negative except as above in the HPI. PHYSICAL EXAMINATION GENERAL: The patient is a 42-year-old female, who appears stated age and sitting in the bed, obviously anxious. VITAL SIGNS: At the time of evaluation, temperature 99.2, pulse rate 89, respiratory rate 17, oxygen saturation 100% on room air, blood pressure 147/87. HEENT: Head: Normocephalic, atraumatic. Sclerae anicteric. No conjunctival injection. Nasal mucosa moist. Oral mucosa moist. No pharyngeal erythema, discharge or exudate. NECK: Supple, nontender. No lymphadenopathy. No carotid bruit auscultated. No JVD. RESPIRATORY: Clear to auscultation bilaterally. No wheezes, rales or rhonchi. Good air exchange bilaterally. CARDIAC: Regular rate and rhythm. No clicks, murmurs, gallops or rubs. Pulses 2+ in the bilateral dorsalis pedis, posterior tibialis, and radial areas. ABDOMEN: Soft, nontender, nondistended. Bowel sounds are present. Normoactive in all 4 quadrants. No hepatosplenomegaly. No abdominal bruits auscultated. No hepatojugular reflux. GENITOURINARY: No suprapubic or CVA tenderness. NEUROLOGIC: Cranial nerves II through XII are intact. No focal deficits. Alert and oriented x3. PSYCHIATRIC: Pleasant and cooperative. SKIN: Clean, dry, and intact. No rash. DIAGNOSTIC STUDIES/LAB DATA: White blood cell count 8.5, hemoglobin 13.6, hematocrit 39, platelet count 269. INR of 0.92, APTT of 31.4. D-dimer less than 200. Sodium 140, potassium 3.3, chloride 106, carbon dioxide 26, anion gap 8, BUN 10, creatinine 0.66, glucose 105, lactic acid 1.2, calcium 9.9, magnesium 2.0. Bilirubin 0.9, AST 12, ALT 10, alkaline phosphatase 57, creatine kinase 42, CK-MB 0.7, troponin I of 0.00, BNP 10, total protein 7.4, albumin 4.6 , globulin 2.8. TSH 0.73. Thyroxine 10.31. Studies: Electrocardiogram shows normal sinus rhythm. No ST segment abnormalities, rate of 79, and QTc of 449. No hypertrophy or enlargement. Repeat EKG, unchanged, early repolarization in V3, present in both EKGs, consistent with previous exams. Chest x-ray shows no active cardiopulmonary disease with this reader's interpretation. ASSESSMENT AND PLAN/IMPRESSION: Ms. Belle is a 42-year-old female with past medical history significant for systemic symptoms attributed to chronic Lyme disease, thyroid nodules with reported hyperthyroidism and paroxysmal abdominal and chest pain of unknown etiology presents to the emergency department with another paroxysm of abdomen and chest pain, which responded to nitroglycerin, GI cocktail, and morphine. The patient had no ischemic EKG changes, but had an elevated troponin. The patient has ongoing chest pain. The patient will be admitted to the hospital for observation and troponin trending, repeat EKG in the morning, and monitoring for arrhythmia. 1. Chest pain, elevated troponin. The patient has had chest pain in the past numerous times without elevations in troponin. The patient in the ambulance was recorded to have tachycardic episodes without obvious P waves that could be consistent with atrial fibrillation. The patient has a history of palpitations and dizziness as well as reported hyperthyroidism. The patient will be started on a beta-michael for both control of possible arrhythmias as well as to decrease the conversion of T3 to T4 in the serum. The patient's TSH on a low end of normal and her thyroxine is normal. Records will attempt to be obtained from the patient's long term care administrator. The patient should have repeat thyroid function test outpatient. The patient's elevated troponin may be due to atrial fibrillation with RVR. The patient was monitored overnight on telemetry for arrhythmias. The patient will have a third troponin drawn. The patient will have a potassium and magnesium maintained within normal limits. The patient should have inpatient or outpatient echocardiogram and consideration for stress test should be given either inpatient or outpatient due to elevated troponin. The patient has ELVER risk score of 2 due to the elevated troponin and severe angina. However, given the patient's alternative possibilities for patient's abdomen and chest pain, outpatient stress test should be considered. The patient is hemodynamically stable. 2. Severe abdominal pain. The patient is supposed to have a HIDA scan outpatient to assess her gallbladder, this should be followed up outpatient. 3. Hyperthyroidism, thyroid nodules. The patient should follow up with her long term care administrator as outpatient. The patient was started on carvedilol for rhythm control as well as control of her hyperthyroidism. The patient should have repeat thyroid function test outpatient and as above, we will attempt to get her long term care administrator records. 4. History of Lyme disease diagnosed a chronic Lyme syndrome. Chronic Lyme disease is not a clinically recognized entity; however, the patient is having significant constitutional symptoms after she had Lyme disease, the patient was previously evaluated for autoimmune disorder. The patient will have ESR and CRP drawn in the morning to assess for possible ongoing inflammation and further rheumatologic workup should be considered outpatient if the patient is not improving. Outpatient psychiatric consult should also be considered to help patient cope with grief from the loss of her son. 5. DVT prophylaxis. The patient is a low risk. The patient will have SCDs. 6. FEN. The patient will have no indication for fluids. The patient will have a heart-healthy diet without caffeine. 7. Code status. The patient is a full code. The patient's surrogate decision maker will be her daughter, Monroe Blanco. 8. Disposition. The patient is admitted for observation. TIME SPENT: Approximately, 75 minutes were spent on the admission of this patient, 45 of which was spent [id number] with the patient obtaining history and physical and discussing treatment plan. The plan was discussed with my attending, Dr. Nancy Gonzales, and she is in agreement. CHARO MAZARIEGOS [id number]/[facility] #: [id number] [place]
[2017-12-21] MEDS: Heparin VIAL(*) 5000 UNITS/ML VIAL (FIVE THOUSAND) SUBCUT SCH ×4 (05:53→21:43)
[2017-12-21] MEDS: Morphine INJ* 4 MG/ML 1 ML SYRINGE (NEW SYRINGE VERSION) IV PRN ×2 (06:18→12:00)
[2017-12-21 06:31] LABS: ABS Basophils 0.1 10^3/ul (0-0.2); ABS Eosinophils 0.1 10^3/ul (0-0.6); ABS Lymphocytes 2.2 10^3/ul (1.0-4.8); ABS Monocytes 0.7 10^3/ul (0-0.8); ABS Neutrophils 4.1 10^3/ul (1.5-7.7); ABS Nucleated RBC 0 10^3/ul; Eosinophil % 0.7 % (0-6); Hematocrit 33 % (35-47); Hemoglobin 11.6 g/dl (12.0-16.0); Lymphocyte % 31.3 % (25-47); Mean Corpuscular HGB Conc 35 g/dl (31-36); Mean Corpuscular Hemoglobin 31 pg (27-31); Mean Corpuscular Volume 90 fL (80-97); Mean Platelet Volume 8.2 um3 (7.4-10.4); Nucleated Red Blood Cells % 0; Platelet Count 206 10^3/ul (150-450); Red Cell Distribution Width 13 % (10.5-15); White Blood Count 7.2 10^3/ul (3.5-10.8)
[2017-12-21 06:47] LABS: EGFR Non-African American 79.4 (>60)
--- NOTE | 2017-12-21 08:01 | RAD ---
Indication: Epigastric pain, chest pain. Single frontal view of the chest performed at 1916 hours was reviewed. Comparison is made with previous exam dated September 27, 2017. No mediastinal shift is noted. Heart is of normal size and configuration. Lung perez appear clear. IMPRESSION: NO ACTIVE CARDIOPULMONARY DISEASE IS NOTED. R1
[2017-12-21] MEDS: Aspirin EC TAB* 81 MG TAB.EC PO SCH (08:28)
[2017-12-21] MEDS: Acetaminophen TAB* 325 MG PO PRN ×2 (09:02→19:44)
--- NOTE | 2017-12-21 17:08 | PN ---
Subjective Date of Service: 12/21/17 Interval History: Abdominal pain was better until this afternoon when had similar abdominal pain but this time on right of abdomen No nausea or vomiting BMs formed tolerating food no CP Ambulating back and forth to bathroom Objective Active Medications: Acetaminophen (Tylenol Tab*) 650 mg PO Q6H PRN PRN Reason: FEVER/PAIN Last Admin: 12/21/17 09:02 Dose: 650 mg Al Hydrox/Mg Hydrox/Simethicone (Maalox Plus*) 30 ml PO Q4H PRN PRN Reason: INDIGESTION Aspirin (Aspirin Ec Tab*) 81 mg PO DAILY [facility] Last Admin: 12/21/17 08:28 Dose: 81 mg Calcium Carbonate (Tums*) 500 mg PO TID PRN PRN Reason: INDIGESTION Carvedilol (Coreg Tab*) 3.125 mg PO BID [facility] Last Admin: 12/21/17 08:28 Dose: 3.125 mg Heparin Sodium (Porcine) (Heparin Vial(*)) 5,000 units SUBCUT Q8HR [facility] Last Admin: 12/21/17 15:45 Dose: Not Given Morphine Sulfate (Morphine Inj (Syringe)*) 2 mg IV Q4H PRN PRN Reason: PAIN Last Admin: 12/21/17 12:00 Dose: 2 mg Nitroglycerin (Nitroglycerin Tab 0.4 Mg*) 0.4 mg SL Q5M PRN PRN Reason: ANGINA Ondansetron HCl (Zofran Inj*) 4 mg IV Q6H PRN PRN Reason: NAUSEA Vital Signs - 8 hr 12/21/17 12/21/17 11:10 12:00 Temperature 98.6 F Pulse Rate 55 Respiratory 20 20 Rate Blood Pressure 127/80 (mmHg) O2 Sat by Pulse 100 Oximetry Oxygen Devices in Use Now: None Appearance: NAD Eyes: No Scleral Icterus, PERRLA Ears/Nose/Mouth/Throat: NL Teeth, Lips, Gums, Clear Oropharnyx Neck: NL Appearance and Movements; NL JVP, Trachea Midline Respiratory: Symmetrical Chest Expansion and Respiratory Effort, Clear to Auscultation Cardiovascular: NL Sounds; No Murmurs; No JVD, RRR Abdominal: - - soft, mild TTP in LUQ, ND, +bs Lymphatic: No Cervical Adenopathy Extremities: No Edema Skin: No Rash or Ulcers Neurological: Alert and Oriented x 3 Result Diagrams: 12/21/17 06:01 12/21/17 06:01 Additional Lab and Data: Lab Results 12/20/17 12/20/17 12/20/17 Range/Units 19:10 19:10 19:10 WBC 8.5 (3.5-10.8) 10^3/ul RBC 4.39 (4.00-5.40) 10^6/ul Hgb 13.6 (12.0-16.0) g/dl Hct 39 (35-47) % MCV 90 (80-97) fL MCH 31 (27-31) pg MCHC 34 (31-36) g/dl RDW 13 (10.5-15) % Plt Count 269 (150-450) 10^3/ul MPV 8.1 (7.4-10.4) um3 Neut % (Auto) 54.0 (38-83) % Lymph % (Auto) 36.6 (25-47) % Cataño % (Auto) 8.6 H (0-7) % Eos % (Auto) 0.3 (0-6) % Baso % (Auto) 0.5 (0-2) % Absolute Neuts (auto) 4.6 (1.5-7.7) 10^3/ul Absolute Lymphs (auto) 3.1 (1.0-4.8) 10^3/ul Absolute Monos (auto) 0.7 (0-0.8) 10^3/ul Absolute Eos (auto) 0 (0-0.6) 10^3/ul Absolute Basos (auto) 0 (0-0.2) 10^3/ul Absolute Nucleated RBC 0 10^3/ul Nucleated RBC % 0 INR (Anticoag Therapy) (0.77-1.02) APTT (26.0-36.3) seconds D-Dimer, Quantitative (Less Than 230) ng/mL Sodium 140 (135-145) mmol/L Potassium 3.3 L (3.5-5.0) mmol/L Chloride 106 (101-111) mmol/L Carbon Dioxide 26 (22-32) mmol/L Anion Gap 8 (2-11) mmol/L BUN 10 (6-24) mg/dL Creatinine 0.66 (0.51-0.95) mg/dL Est GFR ( Amer) 118.3 (>60) Est GFR (Non-Af Amer) 97.7 (>60) BUN/Creatinine Ratio 15.2 (8-20) Glucose 105 H (70-100) mg/dL Lactic Acid 1.2 (0.5-2.0) mmol/L Calcium 9.9 (8.6-10.3) mg/dL Magnesium 2.0 (1.9-2.7) mg/dL Total Bilirubin 0.90 (0.2-1.0) mg/dL AST 12 L (13-39) U/L ALT 10 (7-52) U/L Alkaline Phosphatase 57 (34-104) U/L Total Creatine Kinase 42 (10-223) U/L CK-MB (CK-2) 0.7 (0.6-6.3) ng/mL Troponin I 0.00 (<0.04) ng/mL B-Natriuretic Peptide ( - 100) pg/mL Total Protein 7.4 (6.4-8.9) g/dL Albumin 4.6 (3.2-5.2) g/dL Globulin 2.8 (2-4) g/dL Albumin/Globulin Ratio 1.6 (1-3) TSH 0.73 (0.34-5.60) mcIU/mL Thyroxine (T4) 10.31 (6.09-12.23) mcg/mL 12/20/17 12/20/17 12/20/17 Range/Units 19:10 19:10 21:59 WBC (3.5-10.8) 10^3/ul RBC (4.00-5.40) 10^6/ul Hgb (12.0-16.0) g/dl Hct (35-47) % MCV (80-97) fL MCH (27-31) pg MCHC (31-36) g/dl RDW (10.5-15) % Plt Count (150-450) 10^3/ul MPV (7.4-10.4) um3 Neut % (Auto) (38-83) % Lymph % (Auto) (25-47) % Cataño % (Auto) (0-7) % Eos % (Auto) (0-6) % Baso % (Auto) (0-2) % Absolute Neuts (auto) (1.5-7.7) 10^3/ul Absolute Lymphs (auto) (1.0-4.8) 10^3/ul Absolute Monos (auto) (0-0.8) 10^3/ul Absolute Eos (auto) (0-0.6) 10^3/ul Absolute Basos (auto) (0-0.2) 10^3/ul Absolute Nucleated RBC 10^3/ul Nucleated RBC % INR (Anticoag Therapy) 0.92 (0.77-1.02) APTT 31.4 (26.0-36.3) seconds D-Dimer, Quantitative < 200 (Less Than 230) ng/mL Sodium (135-145) mmol/L Potassium (3.5-5.0) mmol/L Chloride (101-111) mmol/L Carbon Dioxide (22-32) mmol/L Anion Gap (2-11) mmol/L BUN (6-24) mg/dL Creatinine (0.51-0.95) mg/dL Est GFR ( Amer) (>60) Est GFR (Non-Af Amer) (>60) BUN/Creatinine Ratio (8-20) Glucose (70-100) mg/dL Lactic Acid (0.5-2.0) mmol/L Calcium (8.6-10.3) mg/dL Magnesium (1.9-2.7) mg/dL Total Bilirubin (0.2-1.0) mg/dL AST (13-39) U/L ALT (7-52) U/L Alkaline Phosphatase (34-104) U/L Total Creatine Kinase (10-223) U/L CK-MB (CK-2) (0.6-6.3) ng/mL Troponin I 0.07 H* (<0.04) ng/mL B-Natriuretic Peptide 10 ( - 100) pg/mL Total Protein (6.4-8.9) g/dL Albumin (3.2-5.2) g/dL Globulin (2-4) g/dL Albumin/Globulin Ratio (1-3) TSH (0.34-5.60) mcIU/mL Thyroxine (T4) (6.09-12.23) mcg/mL Assess/Plan/Problems-Billing Assessment: 42 yo F long history of abdominal pain, reported chronic lyme, IBS presented with abdominal pain radiating to chest - Patient Problems (1) Abdominal pain Comment: monitor tums and malox PRN HIDA as outpatient as previous scheduled no e/o obstruction or infection (2) IBS (irritable bowel syndrome) Comment: reportedly diagnosed by GI on no meds (3) Chest pain Comment: elevated troponin x 1 TTE tomorrow Appears to be abdominal pain radiating to chest (4) DVT prophylaxis Comment: HSQ
[2017-12-21] MEDS: Calcium Carbonate CHEW TAB* 500 MG (TUMS) PO PRN (17:21)
[2017-12-21] MEDS: Al Hydrox/Mg Hydrox/Simet LIQ* 30 ML UDC PO PRN (17:21)
[2017-12-22] MEDS: Calcium Carbonate CHEW TAB* 500 MG (TUMS) PO PRN ×2 (00:23→07:39)
[2017-12-22] MEDS: Heparin VIAL(*) 5000 UNITS/ML VIAL (FIVE THOUSAND) SUBCUT SCH ×2 (05:21→12:01)
[2017-12-22 05:25] LABS: ABS Basophils 0 10^3/ul (0-0.2); ABS Eosinophils 0.1 10^3/ul (0-0.6); ABS Monocytes 0.5 10^3/ul (0-0.8); ABS Neutrophils 2.4 10^3/ul (1.5-7.7); ABS Nucleated RBC 0 10^3/ul; Eosinophil % 1.4 % (0-6); Hematocrit 35 % (35-47); Hemoglobin 11.8 g/dl (12.0-16.0); Lymphocyte % 39.7 % (25-47); Mean Corpuscular HGB Conc 34 g/dl (31-36); Mean Corpuscular Hemoglobin 31 pg (27-31); Mean Corpuscular Volume 90 fL (80-97); Mean Platelet Volume 8.2 um3 (7.4-10.4); Nucleated Red Blood Cells % 0.2; Platelet Count 214 10^3/ul (150-450); Red Blood Count 3.85 10^6/ul (4.00-5.40); Red Cell Distribution Width 13 % (10.5-15)
[2017-12-22 05:51] LABS: EGFR Non-African American 111.2 (>60)
[2017-12-22] MEDS: Acetaminophen TAB* 325 MG PO PRN (07:35)
[2017-12-22] MEDS: Aspirin EC TAB* 81 MG TAB.EC PO SCH (07:35)
[2017-12-22] MEDS: Carvedilol TAB* 3.125 MG PO SCH (07:35)
[2017-12-22] MEDS: Al Hydrox/Mg Hydrox/Simet LIQ* 30 ML UDC PO PRN (10:12)
[2017-12-22] MEDS ORDERED: Ibuprofen TAB* 600 MG PO ONE (10:42)
--- NOTE | 2017-12-22 12:10 | ECHO ---
Patient: [facility] Rec#: [id number] : 1975 Date: 12/22/2017 Age: 42y Height: 173 cm / 68.1 in Weight: 77 kg / 169.7 lbs Sex: F BSA: 1.91 Room#: 442 Admit Date#: 12/21/2017 Type: Inpatient Referring: Chucho Noonan Reading: Joseluis Lane MD Checkering Machine Adjuster: Swapna Sánchez RDCS,RDMS CC: Arik Villegas MD Transthoracic Echocardiogram Indication: CP BP: 127/68 HR: 60 Rhythm: NSR Findings History: Lyme disease, hyperthyoidism, palpitations Technical Comments: The study quality is good. Left Ventricle: The left ventricular chamber size is normal.Left ventricular function is low normal to mildly depressed. There are no focal wall motion abnormalities. The estimated ejection fraction is 45-50%. Normal left ventricular diastolic filling is observed. Left Atrium: The left atrial chamber size is normal. Right Ventricle: The right ventricular chamber size and systolic function are within normal limits. Right Atrium: The right atrial cavity size is normal. Aortic Valve: The aortic valve is trileaflet. There is no evidence of aortic valve thickening. Systolic excursion of the aortic valve is normal. There is no evidence of aortic regurgitation. There is no evidence of aortic stenosis. Mitral Valve: The mitral valve leaflets appear normal. There is a trace of mitral regurgitation. Tricuspid Valve: The tricuspid valve leaflets are normal. There is trace tricuspid regurgitation. No pulmonary hypertension is noted. Pulmonic Valve: The pulmonic valve structure is not well visualized. There is no evidence of pulmonic regurgitation. There is no pulmonic stenosis. Pericardium: There is no significant pericardial effusion. Aorta: The aortic root appears normal. There is no dilatation of the ascending aorta. There is no dilatation of the aortic arch. There is no dilation of the aortic root. Pulmonary Artery: The main pulmonary artery is not well visualized. Venous: The inferior vena cava is dilated. There is a greater than 50% respiratory change in the inferior vena cava dimension. Conclusions Left ventricular function is low normal to mildly depressed. There are no focal wall motion abnormalities. The estimated ejection fraction is 45-50%. Normal cardiac chamber sizes. Functionally benign heart valves. Since the prior echocardiogram completed 02/23/13, there is no significant change. Measurements Name Value Normal Range RVIDd (AP) 2D 2.8 cm (0.9 - 2.6) RVDdMajor (2D) 3.5 cm (2.2 - 4.4) RAd ISD 4CH 4 cm (3.4 - 4.9) RA (A4C)W 3.7 cm (2.9 - 4.6) IVSd (2D) 0.7 cm (0.6 - 1) LVPWd (2D) 0.9 cm (0.6 - 1) LVIDd (2D) 4.9 cm (3.6 - 5.4) LVIDs (2D) 3.3 cm - LV FS (2D) 33 % (25 - 45) Aortic Annulus 2 cm (1.4 - 2.6) Ao root diameter (2D) 2.7 cm (2.1 - 3.5) Ascending Ao 2.8 cm (2.1 - 3.4) Aortic arch 2.9 cm (1.8 - 3.4) LA dimension (AP) 2D 3.1 cm (2.3 - 3.8) LAd ISD 4CH 4.4 cm (2.9 - 5.3) LA ISD 4CH W 3.9 cm (2.5 - 4.5) Name Value Normal Range LA ESV BP (A/L) index 22 ml/m2 - Name Value Normal Range MV E-wave Vmax 0.7 m/sec - MV deceleration time 185 msec - MV A-wave Vmax 0.6 m/sec - MV E:A ratio 1.2 ratio - P. vein S-wave Vmax 0.5 m/sec - P. vein D-wave Vmax 0.4 m/sec - P. vein S:D Vmax ratio 1.3 ratio - P. vein A-wave duration 124 msec - LV septal e' Vmax 0.1 m/sec - LV lateral e' Vmax 0.14 m/sec - LV E:e' septal ratio 7 ratio - LV E:e' lateral ratio 5 ratio - Name Value Normal Range AV Vmax 1.3 m/sec - AV VTI 27 cm - AV peak gradient 7 mmHg - AV mean gradient 3 mmHg - LVOT Vmax 1 m/sec - LVOT VTI 21 cm - LVOT peak gradient 4 mmHg - LVOT mean gradient 2 mmHg - Name Value Normal Range TR Vmax 2 m/sec - TR peak gradient 16 mmHg - RAP 3 mmHg - RVSP 19 mmHg - IVC diameter 2.2 cm - Name Value Normal Range PV Vmax 0.6 m/sec - PV peak gradient 1.4 mmHg -
[2017-12-22 12:27] VITALS: BP 148/89
--- NOTE | 2017-12-22 23:44 | DS ---
CC: Dr. Villegas* DISCHARGE SUMMARY: DATE OF ADMISSION: 12/21/17 DATE OF DISCHARGE: 12/22/17 PRIMARY CARE PROVIDER: Dr. Villegas. PRIMARY DIAGNOSES: Abdominal and chest pain. SECONDARY DIAGNOSES: Include: 1. Constipation alternating with diarrhea. 2. Carries diagnosis of irritable bowel syndrome. 3. Thyroid nodules. 4. History of chronic Lyme disease reported. Secondary diagnosis also includes elevated troponin, max 0.07. PERTINENT IMAGING PERFORMED DURING HOSPITAL STAY: Transthoracic echocardiogram. Impression: Left ventricular function is low normal to mildly depressed with no focal wall motion abnormalities with an estimated EF of 45% to 50%, normal cardiac chamber size, functionally benign heart valves. Since prior echocardiogram completed in February of 2013, the children librarian reports there are no significant changes. Pertinent laboratory data: Troponin I in sequential checks were 0, 0.07, 0.00 consecutively. D-dimer less than 200. MEDICATIONS AT DISCHARGE: Unchanged from admission include: 1. Gabapentin 300 mg 3 times a day as needed. 2. Oxycodone IR 10 mg 3 times a day as needed. 3. Maalox 30 mg every 4 hours as needed. New medication: Acetaminophen 650 mg every 6 hours as needed. HISTORY OF PRESENT ILLNESS AND HOSPITAL COURSE: This is a 42-year-old female with past medical history as outlined in the history of present illness on the date of admission, who has had longstanding abdominal pain, which she attributes to her gallbladder intermittently with similar episode; however, instead of on the right side, with similar cramping pain on her left which radiated to her chest. She presented to the hospital, was found with second troponin of 0.07, for which the hospitalist service was consulted and she was admitted to the hospital. Her EKG was nonischemic and she had no further episodes of chest discomfort during the hospital; however, did have a typical cramping abdominal pain 4 hours after every meal, which she notes is typical. There was some report that she was in atrial fibrillation in the ambulance ride ; however, these records were unable to be obtained. She had 5 EKGs during her hospital stay, all indicated normal sinus rhythm. She was monitored on telemetry throughout the course of her stay and remained in normal sinus rhythm without any evidence of further atrial fibrillation, which was only heard about second hand. However, the patient does indicate previous episodes of palpitations as well as sensation that her heart flipped, which may need additional workup as an outpatient especially in the setting of low normal EF, although this is unchanged from 2013. The patient has a followup with Gastroenterology tomorrow for discussion of HIDA scan. She is to maintain this. She will retain this appointment and follow up with GI tomorrow. Seems less likely cardiac in nature and more like the previous pains that she has had , although slightly different in character, resolved after minutes. FOLLOWUP: 1. Ensure the patient follows with Gastroenterology. Follow with the recommendations as indicated. 2. May require a longer Holter monitoring or event monitor in the setting of longstanding setting of palpitations as well as second hand report of atrial fibrillation with EMS. Can consider Cardiology referral for further evaluation and management if necessary. Of note, the patient did have sensation of palpitations while she was in the hospital that did not correspond to any telemetry/EKG co- relate of arrhythmia. 3. No other specific labs or vitals that need followup. REASONS TO RETURN TO THE HOSPITAL: Including but not limited to recurrent symptoms including chest pain or shortness of breath, palpitations, nausea, vomiting, lightheadedness, loss of consciousness or near loss of consciousness, bleeding from any source, vomiting, diarrhea, inability to obtain or tolerate medications discussed with the patient. She acknowledged understanding. TIME SPENT: Greater than 60 minutes was spent discharging the patient, greater than half was spent [id number] with the patient. [id number]/[facility] #: [id number] [place]
== END 2017-12-22 16:01 | disposition home or self-care (01) ==
LOC: ED 18:30 → MEDTELE 12-21 00:17
PROVIDERS: ADMIT Internal Medicine; ATTEND Internal Medicine
DX: R10.9 Unspecified abdominal pain (principal); R07.9 Chest pain, unspecified; K58.2 Mixed irritable bowel syndrome; K59.00 Constipation, unspecified; R19.7 Diarrhea, unspecified; E04.1 Nontoxic single thyroid nodule; A69.20 Lyme disease, unspecified; E05.90 Thyrotoxicosis, unspecified without thyrotoxic crisis or storm; I48.91 Unspecified atrial fibrillation; R20.0 Anesthesia of skin; K21.9 Gastro-esophageal reflux disease without esophagitis; Z90.711 Acquired absence of uterus with remaining cervical stump; L93.0 Discoid lupus erythematosus
CPT/HCPCS: 36415; 71045; 80048; 80053; 80061; 81003; 81015; 82550; 82553; 83036; 83605; 83735; 83880; 84436; 84443; 84479; 84484; 85025; 85379; 85610; 85652; 85730; 86140; 87086; 93005; 93306; 96365; 96374; 96375; 99284; A9270-GY; G0378; J1644; J1885; J2270; J2405

== ENCOUNTER 2018-01-04 14:48 | Inpatient (IN) | payer MEDICARE, MEDICAID ==
--- NOTE | 2018-01-04 15:10 | ED ---
Psychiatric Complaint - HPI Summary HPI Summary: The pt is a 42 y/o female [facility] of SI with a plan. She saw her counselor at the [facility] recently to no relief. She had a breakdown today that prompted her to bring her to the ED. The sx are aggravated by the loss of a son 10 months ago and has multiple health problems such as Graves disease. She notes dry skin, tremors, anger, and abd pain and denies any EtOH consumption. She is concerned whether her hyperthyroidism aggravates the sx. - History Of Current Complaint Chief Complaint: EDMentalHealth Time Seen by Provider: 01/04/18 15:03 Hx Obtained From: Patient, Family/Platform Inspector - Hx Last Menstrual Period: hysterectomy Onset/Duration: Gradual Onset, Still Present, Worse Since - Today Timing: Constant Character: Anxious Aggravating Factor(s): Recent Stress - Loss of a son 10 months ago; Health issues Alleviating Factor(s): Nothing Has Suicidal: Reports: Thoughts, With A Plan - Allergies/Home Medications Allergies/Adverse Reactions: Allergies Allergy/AdvReac Type Severity Reaction Status Date / Time bupropion Allergy Headache Verified 01/04/18 14:55 clarithromycin [From Biaxin] Allergy Rash Verified 01/04/18 14:55 codeine Allergy Nausea And Verified 01/04/18 14:55 Vomiting hydralazine Allergy Anaphylatic Verified 01/04/18 14:55 Shock Sulfa (Sulfonamide Allergy Hives Verified 01/04/18 14:55 Antibiotics) PMH/Surg Hx/FS Hx/Imm Hx Endocrine/Hematology History: Reports: Hx Systemic Lupus Erythematosus, Hx Thyroid Disease - Grave's disease, Other Endocrine/Hematological Disorders - Sjogren's syndrome, Lyme disease, Raynaud's disease Cardiovascular History: Reports: Hx Hypertension Respiratory History: Denies: Hx Asthma GI History: Reports: Hx Irritable Bowel, Other GI Disorders History: Denies: Hx Renal Disease Sensory History: Reports: Hx Contacts or Glasses Denies: Hx Hearing Aid Opthamlomology History: Reports: Hx Contacts or Glasses Psychiatric History: Reports: Hx Depression Denies: Hx Eating Disorder, Hx of Violent Episodes Against Others, Hx Substance Abuse - Cancer History Cancer Type, Location and Year: None reported - Surgical History Surgery Procedure, Year, and Place: Partial hysterectomy 2006, Eddi Escobar [place]. 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 Date of Influenza Vaccine: does not do Infectious Disease History: No Infectious Disease History: Denies: Traveled Outside the [place] in Last 30 Days - Family History Known Family History: Positive: Cardiac Disease, Diabetes - in siblings, Other - Depression (father, sister), Leukemia (father, grandmother), stroke - Social History Occupation: Unemployed, Disabled Lives: With Family Alcohol Use: Rare Hx Substance Use: Yes Substance Use Type: Reports: Marijuana, Prescribed Substance Use Comment - Amount & Last Used: 11/20/17 Hx Tobacco Use: No Smoking Status (MU): Never Smoked Tobacco Review of Systems Positive: Abdominal Pain Skin: Other - Positive: Dryness Neurological: Other - Positive: Tremors Psychological: Other - Positive: SI, Anger Positive: Anxious All Other Systems Reviewed And Are Negative: Yes Physical Exam - Summary Physical Exam Summary: General: Anxious appearing, no pain distress Skin: warm, color reflects adequate perfusion, dry Head: normal Eyes: EOMI, SHRAVAN ENT: normal Neck: supple, nontender Respiratory: CTA, breath sounds present Cardiovascular: RRR Abdomen: soft, nontender Bowel: present Musculoskeletal: normal, strength/ROM intact Neurological: sensory/motor intact, A&O x3 Psychological: affect/mood appropriate Triage Information Reviewed: Yes Vital Signs On Initial Exam: Initial Vitals Temp Pulse Resp BP Pulse Ox 99.4 F 95 18 149/96 100 01/04/18 14:49 01/04/18 14:49 01/04/18 14:49 01/04/18 14:49 01/04/18 14:49 Vital Signs Reviewed: Yes Diagnostics - Vital Signs Vital Signs Temp Pulse Resp BP Pulse Ox 01/04/18 14:49 99.4 F 95 18 149/96 100 - Laboratory Result Diagrams: 01/04/18 15:36 01/04/18 15:36 Lab Statement: Any lab studies that have been ordered have been reviewed, and results considered in the medical decision making process. - EKG 16:37 Cardiac Rate: NL - 72 bpm EKG Rhythm: Sinus Rhythm ST Segment: Normal Ectopy: None Course/Dx - Course Course Of Treatment: Medications reviewed. Allergies noted. 15:38 - Pt cleared for a MHE. The pt will be admitted to Dr. Duran with a final Dx of depression. - Differential Dx/Clinical Impression Provider Diagnosis: Depression Discharge - Sign-Out/Discharge Documenting (check all that apply): Patient Departure - Admit - Discharge Plan Condition: Stable Disposition: ADMITTED TO [facility] Referrals: Arik Villegas MD [Primary Care Provider] - - Billing Disposition and Condition Condition: STABLE Disposition: Admitted to [facility] - Attestation Statements Document Initiated by Scribe: Yes Documenting Scribe: Su Newton Provider For Whom Jefry is Documenting (Include Credential): Dr. Chucho Barrientos MD Scribe Attestation: ISu , scribed for Dr. Chucho Barrientos MD on 01/04/18 at 1959. Scribe Documentation Reviewed: Yes Provider Attestation: The documentation as recorded by the scribeSu accurately reflects the service I personally performed and the decisions made by me, Dr. Chucho Barrientos MD
[2018-01-04 15:30] LABS: Urine Appearance Clear; Urine Blood Negative (Negative); Urine Color Straw; Urine Ketones Negative (Negative); Urine Protein Negative (Negative); Urine Specific Gravity 1.008 (1.010-1.030); Urine Urobilinogen Negative (Negative)
[2018-01-04 15:42] LABS: ABS Basophils 0.1 10^3/ul (0-0.2); ABS Eosinophils 0 10^3/ul (0-0.6); ABS Lymphocytes 1.9 10^3/ul (1.0-4.8); ABS Monocytes 0.6 10^3/ul (0-0.8); ABS Nucleated RBC 0 10^3/ul; Eosinophil % 0.2 % (0-6); Hematocrit 38 % (35-47); Lymphocyte % 22.1 % (25-47); Mean Corpuscular HGB Conc 34 g/dl (31-36); Mean Corpuscular Hemoglobin 31 pg (27-31); Mean Corpuscular Volume 91 fL (80-97); Mean Platelet Volume 8.2 um3 (7.4-10.4); Nucleated Red Blood Cells % 0; Platelet Count 261 10^3/ul (150-450); Red Blood Count 4.21 10^6/ul (4.00-5.40); Red Cell Distribution Width 13 % (10.5-15); White Blood Count 8.6 10^3/ul (3.5-10.8)
[2018-01-04 15:59] LABS: EGFR Non-African American 94.4 (>60)
[2018-01-04] MEDS ORDERED: Acetaminophen TAB* 325 MG PO ONE (17:44)
[2018-01-04] MEDS ORDERED: LORazepam TAB(*) 1 MG PO ONE (17:44)
[2018-01-04] MEDS ORDERED: Acetaminophen TAB* 325 MG PO PRN (21:39)
[2018-01-04] MEDS ORDERED: Al Hydrox/Mg Hydrox/Simet LIQ* 30 ML UDC PO PRN (21:39)
[2018-01-04] MEDS ORDERED: Gabapentin CAP(*) 300 MG PO PRN (21:40)
[2018-01-04] MEDS: Cyclobenzaprine TAB* 10 MG PO SCH (22:43)
[2018-01-04] MEDS: TUMERIC CURCUMIN PO SCH (22:44)
[2018-01-04] MEDS: Propranolol TAB* 10 MG PO SCH (22:44)
[2018-01-05] MEDS: Cyclobenzaprine TAB* 10 MG PO SCH ×2 (08:53→20:38)
[2018-01-05] MEDS: Propranolol TAB* 10 MG PO SCH ×2 (08:54→20:39)
[2018-01-05] MEDS: SELENIUM 200 MCG PO SCH (08:54)
[2018-01-05] MEDS: Vitamin THERAPEUTIC TAB PO SCH (08:54)
[2018-01-05] MEDS: VITAMIN D3 125 MCG PO SCH (08:54)
[2018-01-05] MEDS: TUMERIC CURCUMIN PO SCH ×2 (08:54→20:39)
[2018-01-05] MEDS ORDERED: Polyethylene Glycol 3350* 17 GM PACKET PO PRN (12:18)
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
[2018-01-05] MEDS: Methimazole TAB* 5 MG PO SCH (20:39)
[2018-01-05] MEDS: LORazepam TAB(*) 1 MG PO PRN (21:40)
[2018-01-06] MEDS: LORazepam TAB(*) 1 MG PO PRN ×2 (07:47→20:36)
--- NOTE | 2018-01-06 10:05 | RAD ---
Indication: Abdominal pain. Question gallbladder dysfunction. Comparison: April 27, [address] Technique: 6.500 mCi of Tc-99m Choletec was injected IV. Serial anterior images of the abdomen were obtained immediately following radiopharmaceutical administration to 60 minutes. Report: There is normal hepatic uptake and excretion of the radiopharmaceutical with the gallbladder being visualized at approximately 10 minutes following injection. Bowel activity visualized at approximately 30 minutes. IMPRESSION: #. Patent cystic and common bile ducts documented. #. Normal biliary scintigraphy exam.
[2018-01-06] MEDS: Propranolol TAB* 10 MG PO SCH ×2 (11:18→20:36)
[2018-01-06] MEDS: Cyclobenzaprine TAB* 10 MG PO SCH ×2 (11:18→20:35)
[2018-01-06] MEDS: Methimazole TAB* 5 MG PO SCH ×2 (11:18→20:35)
[2018-01-06] MEDS: Vitamin THERAPEUTIC TAB PO SCH (11:19)
[2018-01-06] MEDS: SELENIUM 200 MCG PO SCH (11:19)
[2018-01-06] MEDS: VITAMIN D3 125 MCG PO SCH (11:20)
[2018-01-06] MEDS: TUMERIC CURCUMIN PO SCH ×2 (11:20→20:35)
--- NOTE | 2018-01-06 15:19 | PN ---
Subjective - Subjective Date of Service: 01/06/18 Service Type: [id number] Hosp care 15 min low complexity Subjective: Kim is feeling better, experiencing both a marked reduction in anxiety as well as a complete resolution of suicidal thoughts. She underwent her scheduled HIDA scan this morning, which was negative. She has initiated methimazole treatment as directed for her symptoms of hyperthyroidism and is utilizing PO lorazepam when necessary, with good effect. She slept well last night and reports improving relations with her during phone calls and visits. Objective - Appearance Appearance: Well Developed/Nourished Dysmorphic Features: No Hygiene: Normal Grooming: Well Kept - Behavior Psychomotor Activities: Normal Exhibits Abnormal Movement: No - Attitude and Relatedness Attitude and Relatedness: Cooperative Eye Contact: Fair - Speech Quality: Unpressured Latencies: Normal Quantity: Appropriate - Mood Patient's Decription of Mood: "Good" - Affect Observed Affect: Good Affect Consistent with: Euthymia - Thought Process Patient's Thought Process: Coherent Thought Content: No Passive Wish, No Suicidal Planning, No Homicidal Ideation, No Paranoid Ideation - Sensorium Experiencing Hallucinations: No, Sensorium is Clear Type of Hallucinations: Visual: No, Auditory: No, Command: No - Level of Consciousness Level of Consciousness: Alert Orientation: Yes Intact, Yes Orientated to Time, Yes Orientated to Place, Yes Orientated to Person - Impulse Control Impulse Control: Tenuous - Insight and Judgement Insight and Judgement: Fair - Group Participation Particating in Group Activities: Yes - Medication Management Medication Management Adherence: Yes Assessment - Assessment Merits Inpatient Hospitalization: Consolidate Improvements, Pending Safe DC Plan Inpatient DSM-V Dx: F06.4 Clinical Impression: 42 y.o. , white female with a history of autoimmune dysfunction and recurrent depression arrives complaining of intolerable anxiety leading to suicidal ideation in the setting of multiple symptoms of hyperthyroidism, including heart palpitations, unintended weight loss, fine motor tremor, heat intolerance and irritability. MHU: Problem List - Patient Problems (1) Hyperthyroidism Current Visit: Yes Status: Acute Priority: High Code(s): E05.90 - THYROTOXICOSIS, UNSP WITHOUT THYROTOXIC CRISIS OR STORM SNOMED Code(s): 58450781 Plan - Plan Treatment Plan: Name: KIM RUSS Birthdate: 1975 [id number] The patient's symptoms are best explained by uncontrolled hyperthyroidism and she has agreed to initiation methimazole 5mg PO BID. We are treating her anxiety symptomatically with lorazepam and she is improving. HIDA scan, which was already scheduled on an outpatient basis, was within normal limits. Will target discharge by the middle of the week. Continued Medication Management: Start Medication Medications: Current Medications Acetaminophen (Tylenol Tab*) 650 mg PO Q4H PRN PRN Reason: PAIN or TEMP > 101 F Al Hydrox/Mg Hydrox/Simethicone (Maalox Plus*) 30 ml PO Q4H PRN PRN Reason: INDIGESTION Cyclobenzaprine HCl (Flexeril Tab*) 10 mg PO BID [facility] Last Admin: 01/06/18 11:18 Dose: 10 mg Gabapentin (Neurontin Cap(*)) 300 mg PO TID PRN PRN Reason: . Lorazepam (Ativan Tab(*)) 1 mg PO Q6H PRN PRN Reason: ANXIETY Last Admin: 01/06/18 07:47 Dose: 1 mg Methimazole (Tapazole Tab*) 5 mg PO BID [facility] Last Admin: 01/06/18 11:18 Dose: 5 mg Multivitamins (Theragran Tab*) 1 tab PO DAILY [facility] Last Admin: 01/06/18 11:19 Dose: 1 tab Pto:Tumeric Curcumin 1 dose PO BID [facility] Last Admin: 01/06/18 11:20 Dose: 1 dose Pto:Vitamin D3 125 (Mcg (5,000 Iu)) 1 dose PO DAILY [facility] Last Admin: 01/06/18 11:20 Dose: 1 dose Polyethylene Glycol/Electrolytes (Miralax*) 17 gm PO DAILY PRN PRN Reason: CONSTIPATION Propranolol HCl (Inderal Tab*) 10 mg PO BID [facility] Last Admin: 01/06/18 11:18 Dose: 10 mg Selenium (Selenium (Nf)) 200 mcg PO DAILY [facility] Last Admin: 01/06/18 11:19 Dose: 200 mcg - Discharge Plan Discharge Plan: Inpatient Hospitalization Lab Results - Lab Results Lab Results: 01/04/18 01/04/18 01/04/18 15:12 15:12 15:36 WBC 8.6 RBC 4.21 Hgb 13.0 Hct 38 MCV 91 MCH 31 MCHC 34 RDW 13 Plt Count 261 MPV 8.2 Neut % (Auto) 69.6 Lymph % (Auto) 22.1 L Marshall % (Auto) 7.1 H Eos % (Auto) 0.2 Baso % (Auto) 1.0 Absolute Neuts (auto) 6.0 Absolute Lymphs (auto) 1.9 Absolute Monos (auto) 0.6 Absolute Eos (auto) 0 Absolute Basos (auto) 0.1 Absolute Nucleated RBC 0 Nucleated RBC % 0 Sodium Potassium Chloride Carbon Dioxide Anion Gap BUN Creatinine Est GFR ( Amer) Est GFR (Non-Af Amer) BUN/Creatinine Ratio Glucose Hemoglobin A1c Calcium Total Bilirubin AST ALT Alkaline Phosphatase Total Protein Albumin Globulin Albumin/Globulin Ratio Triglycerides Cholesterol LDL Cholesterol HDL Cholesterol TSH Free T4 Free T3 Beta HCG, Quant Urine Color Straw Urine Appearance Clear Urine pH 7.0 Ur Specific [place] 1.008 L Urine Protein Negative Urine Ketones Negative Urine Blood Negative Urine Nitrate Negative Urine Bilirubin Negative Urine Urobilinogen Negative Ur Leukocyte Esterase Negative Urine Glucose Negative Salicylates Urine Opiates Screen None detected Acetaminophen Ur Barbiturates Screen None detected Ur Phencyclidine Scrn None detected Ur Amphetamines Screen None detected U Benzodiazepines Scrn None detected Urine Cocaine Screen None detected U Cannabinoids Screen None detected Serum Alcohol 01/04/18 01/05/18 01/05/18 15:36 07:31 07:31 WBC RBC Hgb Hct MCV MCH MCHC RDW Plt Count MPV Neut % (Auto) Lymph % (Auto) [place] % (Auto) Eos % (Auto) Baso % (Auto) Absolute Neuts (auto) Absolute Lymphs (auto) Absolute Monos (auto) Absolute Eos (auto) Absolute Basos (auto) Absolute Nucleated RBC Nucleated RBC % Sodium 140 Potassium 4.3 Chloride 105 Carbon Dioxide 30 Anion Gap 5 BUN 13 Creatinine 0.68 Est GFR ( Amer) 114.3 Est GFR (Non-Af Amer) 94.4 BUN/Creatinine Ratio 19.1 Glucose 97 Hemoglobin A1c 5.5 Calcium 9.8 Total Bilirubin 0.80 AST 15 ALT 13 Alkaline Phosphatase 50 Total Protein 7.1 Albumin 4.3 Globulin 2.8 Albumin/Globulin Ratio 1.5 Triglycerides 95 Cholesterol 158 LDL Cholesterol 73 HDL Cholesterol 65.7 TSH 0.29 L Free T4 Free T3 Beta HCG, Quant 1.59 Urine Color Urine Appearance Urine pH Ur Specific [place] Urine Protein Urine Ketones Urine Blood Urine Nitrate Urine Bilirubin Urine Urobilinogen Ur Leukocyte Esterase Urine Glucose Salicylates < 2.50 Urine Opiates Screen Acetaminophen < 15 Ur Barbiturates Screen Ur Phencyclidine Scrn Ur Amphetamines Screen U Benzodiazepines Scrn Urine Cocaine Screen U Cannabinoids Screen Serum Alcohol < 10 01/05/18 07:31 WBC RBC Hgb Hct MCV MCH MCHC RDW Plt Count MPV Neut % (Auto) Lymph % (Auto) [place] % (Auto) Eos % (Auto) Baso % (Auto) Absolute Neuts (auto) Absolute Lymphs (auto) Absolute Monos (auto) Absolute Eos (auto) Absolute Basos (auto) Absolute Nucleated RBC Nucleated RBC % Sodium Potassium Chloride Carbon Dioxide Anion Gap BUN Creatinine Est GFR ( Amer) Est GFR (Non-Af Amer) BUN/Creatinine Ratio Glucose Hemoglobin A1c Calcium Total Bilirubin AST ALT Alkaline Phosphatase Total Protein Albumin Globulin Albumin/Globulin Ratio Triglycerides Cholesterol LDL Cholesterol HDL Cholesterol TSH 0.51 Free T4 0.97 Free T3 3.60 Beta HCG, Quant Urine Color Urine Appearance Urine pH Ur Specific [place] Urine Protein Urine Ketones Urine Blood Urine Nitrate Urine Bilirubin Urine Urobilinogen Ur Leukocyte Esterase Urine Glucose Salicylates Urine Opiates Screen Acetaminophen Ur Barbiturates Screen Ur Phencyclidine Scrn Ur Amphetamines Screen U Benzodiazepines Scrn Urine Cocaine Screen U Cannabinoids Screen Serum Alcohol
[2018-01-07] MEDS: Cyclobenzaprine TAB* 10 MG PO SCH (08:54)
[2018-01-07] MEDS: Methimazole TAB* 5 MG PO SCH (08:54)
[2018-01-07] MEDS: TUMERIC CURCUMIN PO SCH (08:54)
[2018-01-07] MEDS: VITAMIN D3 125 MCG PO SCH (08:55)
[2018-01-07] MEDS: Propranolol TAB* 10 MG PO SCH (08:55)
[2018-01-07] MEDS: Vitamin THERAPEUTIC TAB PO SCH (08:55)
[2018-01-07] MEDS: SELENIUM 200 MCG PO SCH (08:55)
[2018-01-07 09:14] VITALS: BP 110/78
[2018-01-07] MEDS: LORazepam TAB(*) 1 MG PO PRN (10:29)
--- NOTE | 2018-01-07 23:21 | DS ---
DISCHARGE SUMMARY: DATE OF ADMISSION: 01/04/18 DATE OF DISCHARGE: 01/07/18 DISCHARGE DIAGNOSES: [place] I: 1. Anxiety disorder secondary to Graves disease. 2. Major depressive disorder by history. [place] II: Deferred. CONDITION AT THE TIME OF DISCHARGE: Stable. The patient's symptoms of hyperthyroidism have reduced. She is no longer tremulous or having hot flashes , and her anxiety and irritability are markedly diminished. The patient is tolerating the initiation of anti-thyroid meds as well as benzodiazepines to treat anxiety. She is sleeping well, going to groups, socializing with peers, and accepting her on visitation. She denied suicidal or homicidal ideations, and has been safe on all checks. Kim has done well on our unit and is appropriately requesting discharge to the outpatient environment. She has followup appointments in place with her manager home at [place] as well as her primary care provider and psychiatric services at [facility]. MENTAL STATUS EXAMINATION AT THE TIME OF DISCHARGE: The patient is a pleasant middle-aged white female with long dark hair and eyeglasses, who is calm, cooperative, makes good eye contact, is easy to establish a rapport with. Speech has a normal rate, tone, and volume. Mood is euthymic with a full affect. Thought process is linear and goal-directed. Thought content is significant for her desire to be discharged from the hospital. She denied suicidal or homicidal ideations. She denies auditory or visual hallucinations. Insight and judgment are fair given her willingness to follow through with outpatient medical and psychiatric treatment. Cognitively, she is awake and alert with what would appear to be an average intellect. DISCHARGE INSTRUCTIONS TO THE PATIENT: Are as follows: A. Medications: 1. The patient is taking aspirin 81 mg p.o. daily. 2. Gabapentin 300 mg p.o. t.i.d. as a p.r.n. for pain. 3. She takes Flexeril 10 mg p.o. daily. 4. She takes propranolol 10 mg p.o. b.i.d. 5. She takes methimazole 5 mg p.o. b.i.d. for her thyroid. 6. She takes lorazepam 1 mg p.o. q.6h p.r.n. for anxiety. B. Diet is regular. C. Activities as tolerated. The patient is a nonsmoker. There are no laboratory or diagnostic studies pending at the time of discharge. D. Followup care: The patient will see Elaina Henry her therapist at [facility] on 01/15/18 at 2 p.m. She also has an intake with psychiatrist, Dr. Huff, tomorrow, 01/08/18, at 2 p.m. For her thyroid issues , she will follow up with her primary care provider, Dr. Arik Villegas, as needed. E. Substance abuse followup is not applicable. HOSPITAL COURSE: Part A: Reason for admission: The patient is a 42-year-old white female with a history of multiple autoimmune problems and chronic pain as well as recurrent depression who was brought into the emergency room by her reporting suicidal thoughts and a plan to "jump off a alfredo." The patient denies depression, but she endorses severe anxiety associated with chronic medical conditions along with some grief issues related to the of her 25-year-old son in February 2017 from a falling accident. She reported to the emergency room staff that she was "at rock bottom," stating, "I'm broken, a lot has been going on, I'm dealing with chronic illnesses for the past 15 years. I have Lyme disease, degenerative disk disease, Graves disease, chronic pain, GI issues. They are prescribing me opioids, but they make me sick, so I don't take them. No one wants to give me medications for anxiety. This thyroid issue makes me jittery and drenched in sweat. I have terrible sleep. I have a 22-year-old daughter and that is all that keeps me going." One day later on our unit, I met with the patient and she continued to endorse horrible anxiety, which she did get some relief from from a low dose of lorazepam administered in the emergency room. Along with diaphoresis, elevated heart rate, loss of 85 pounds, and tremors, she described anxiety, likely related to her thyroid condition. Her manager home at [place] did recommend a trial of methimazole ; however, the patient was reluctant to take it because she feels that she has gallbladder issues and was fearful when she was told that methimazole causes liver dysfunction. Her grouchiness and irritability has caused a strain in her marriage and her recently started drinking and actually left the home for approximately 1 month, although he did come back 1 week prior to admission. She does indicate that her son in February of last year in an accident by falling down the stairs and although she admits to grieving, she does not feel that this issue is related to what she has been going through currently. She did have an intake appointment 1 week ago at the [facility] where she got enrolled with the therapist named Elaina Henry. The patient denies both depressive or neurovegetative symptoms. She has been having intolerance to heat in addition to the aforementioned thyroid issues. Part B: Psychiatric treatment rendered: The patient was admitted to the adult behavioral health unit where she was placed on q.30-minute checks for her own safety. Her initial thyroid-stimulating hormone level was only 0.29, which is low, which certainly indicated an overactive thyroid. Thereafter, her TSH was tested again and was slightly higher at 0.51. Free T4 was 0.97 and free T3 was 3.60. The patient was agreeable to initiating methimazole treatment and was started on 5 mg p.o. twice daily, which she tolerated well. I reassured her that liver dysfunction was unlikely at a lower dose. For her symptomatic anxiety, we gave her sparing amounts of lorazepam administered on a p.r.n. basis. She tolerated this well and got much symptomatic relief. The patient had already scheduled a HIDA scan to evaluate problems with her gallbladder due to epigastric pain. We allowed her to attend this appointment in the radiology suite and the results came back negative for any gallbladder dysfunction. This makes the patient feel that her racing heart and abdominal pain were perhaps related to the thyroid. At any rate, through this admission, she became progressively better rested, less anxious, and more hopeful for the future. Her suicidal ideations resolved and she accepted visitation from her with whom she is getting along better. At this time, the patient feels safe for discharge to the outpatient setting and we see no barriers to her receiving definitive care outside of the hospital. Her is agreeable with discharge planning and she will be following up with both [facility] as well as with her manager home at [place] and her primary care doctor, Dr. Villegas. [id number]/[facility] #: [id number] [facility] HOSPITALG[facility]
== END 2018-01-07 11:47 | disposition home or self-care (01) | DRG 644 ==
LOC: ED 14:48 → BSU 19:43
PROVIDERS: ADMIT Psychiatry & Neurology Psychiatry; ATTEND Psychiatry & Neurology Psychiatry
DX: E05.00 Thyrotoxicosis with diffuse goiter without thyrotoxic crisis or storm (principal); R45.851 Suicidal ideations; F33.9 Major depressive disorder, recurrent, unspecified; F06.4 Anxiety disorder due to known physiological condition; G89.29 Other chronic pain; M79.7 Fibromyalgia; K59.00 Constipation, unspecified; I73.00 Raynaud's syndrome without gangrene; M32.9 Systemic lupus erythematosus, unspecified; Z62.810 Personal history of physical and sexual abuse in childhood; I10 Essential (primary) hypertension; Z90.711 Acquired absence of uterus with remaining cervical stump; Z82.49 Family history of ischemic heart disease and other diseases of the circulatory system; Z83.3 Family history of diabetes mellitus; Z82.3 Family history of stroke; Z80.6 Family history of leukemia; Z79.82 Long term (current) use of aspirin; Z79.899 Other long term (current) drug therapy; Z88.1 Allergy status to other antibiotic agents; Z88.5 Allergy status to narcotic agent; Z88.2 Allergy status to sulfonamides; Z88.8 Allergy status to other drugs, medicaments and biological substances; Z72.89 Other problems related to lifestyle; Z81.8 Family history of other mental and behavioral disorders; Z56.0 Unemployment, unspecified
CPT/HCPCS: 36415; 78226; 80053; 80061; 80307; 80320; 80329; 81003; 83036; 84439; 84443; 84481; 84702; 85025; 93005; 99222; 99231; 99238; 99285; A9270-GY; A9537; G0480

== ENCOUNTER 2019-04-06 10:54 | Emergency (ER) | payer MEDICARE, MEDICAID ==
[2019-04-06 11:17] LABS: ABS Basophils 0.1 10^3/ul (0-0.2); ABS Lymphocytes 1.7 10^3/ul (1.0-4.8); ABS Monocytes 0.5 10^3/ul (0-0.8); ABS Neutrophils 3.4 10^3/ul (1.5-7.7); Eosinophil % 0.4 %; Hematocrit 41 % (35-47); Hemoglobin 14.1 g/dL (12.0-16.0); Lymphocyte % 29.7 %; Mean Corpuscular HGB Conc 34 g/dL (31-36); Mean Corpuscular Hemoglobin 31 pg (27-31); Mean Corpuscular Volume 91 fL (80-97); Mean Platelet Volume 8.3 fL (7.4-10.4); Platelet Count 255 10^3/uL (150-450); Red Cell Distribution Width 13 % (10-15); White Blood Count 5.7 10^3/uL (3.5-10.8)
--- OUTSIDE RECORDS SUMMARY | 2019-04-06 11:28 | XMS REPORT | Continuity of Care Document ---
:1975 External Reference #:[id number] Author Name Caitlin Stauffer M.D. Address [address] [place] [place] [address] Problems Description No Information Available Social History Type Date Description Comments Sex Unknown Allergies, Adverse Reactions, Alerts Active Allergies Reaction Severity Comments Date Sulfa Antibiotics 03/05/2019 Biaxin 03/05/2019 Cymbalta 03/05/2019 Bupropion 03/05/2019 Lyrica 03/05/2019 Codeine 03/05/2019 Hydroxyzine 03/05/2019 Medications Active Medications SIG Qnty Indications Ordering Provider Date Amoxicillin 1 by mouth three a Unknown 875mg day Tablets Gabapentin 1 by mouth three Unknown 300mg times a day as Capsules needed Epipen 2-Wilfredo use as directed Unknown 0.3mg/0.3ML Solution Auto-Inject Vitamin Deficiency inject 1 milliliters Unknown Injectable every week for 4 System-B12 weeks followed by 1000mcg/ML monthly injections. Kit Vitamin D 2 by mouth every day Unknown (Cholecalciferol) 25mcg (1000 Ut) Capsules Oxycodone HCL 1 tab by mouth every Unknown 10mg 6 hours as needed Tablets pain Vitamin C 1 by mouth every day Unknown 1000mg Tablets Propranolol HCL take one tablet Unknown 10mg every 8 hours as Tablets needed for anxiety Immunizations Description No Information Available Vital Signs Description No Information Available Results Description No Information Available Procedures Description No Information Available Medical Devices Description No Information Available Encounters Description No Information Available Assessments Description No Information Available Plan of Treatment No Information Available Functional Status Description No Information Available Mental Status Description No Information Available Referrals Description No Information Available
--- OUTSIDE RECORDS SUMMARY | 2019-04-06 11:28 | XMS REPORT | Continuity of Care Document ---
:1975 External Reference #:[id number] Author Name Caitlin Stauffer M.D. (transmitted by agent of provider Delaney Leroy) Address [address] [place] [address] Care Team Providers Name Role Phone Arik Villegas MD - Family Medicine Care Team Information Mobile Ui Designer [phone] Problems Active Problems Provider Date Palpitations Caitlin Stauffer M.D. Onset: 03/05/2019 Social History Type Date Description Comments Sex Unknown Cigarette Use pt states she smoked for approx 1month at age 17 ETOH Use Occasionally consumes alcohol Tobacco Use Start: Unknown Patient has never smoked Recreational Drug Use Denies Drug Use Smoking Status Reviewed: 03/05/19 Patient has never smoked Exercise Type/Frequency Exercises sporadically Exercise Type/Frequency pt states she has started yoga Allergies, Adverse Reactions, Alerts Active Allergies Reaction Severity Comments Date Sulfa Antibiotics 03/05/2019 Biaxin 03/05/2019 Cymbalta 03/05/2019 Bupropion 03/05/2019 Lyrica 03/05/2019 Codeine 03/05/2019 Hydroxyzine 03/05/2019 Gluten 03/05/2019 Hair Dye/Chemicals 03/05/2019 Medications Active Medications SIG Qnty Indications Ordering Provider Date Gabapentin 1 by mouth three Unknown 300mg times a day as Capsules needed Vitamin Deficiency inject 1 milliliters Unknown Injectable every week for 4 System-B12 weeks followed by 1000mcg/ML monthly injections. Kit Oxycodone HCL 1 tab by mouth every Unknown 10mg 6 hours as needed Tablets pain Propranolol HCL take one tablet Unknown 10mg every 8 hours as Tablets needed for anxiety Womens Multi Unknown Capsules Immunizations Description No Information Available Vital Signs Date Vital Result Comment 03/05/2019 2:22pm Height 69 inches 5'9" Weight 186.00 lb with shoes per pt Heart Rate 62 /min BP Systolic Sitting 148 mmHg lue reg cuff BP Diastolic Sitting 89 mmHg lue reg cuff BP Systolic Standing 132 mmHg lue reg cuff BP Diastolic Standing 90 mmHg lue reg cuff Respiratory Rate 14 /min BMI (Body Mass Index) 27.5 kg/m2 Ejection Fraction 45%-50% echocardiogram 12/22/2017 Results Description No Information Available Procedures Date Code Description Status 03/05/2019 06296 EKG Tracing & Interpretation Completed Medical Devices Description No Information Available Encounters Description No Information Available Assessments Date Code Description Provider 03/05/2019 R00.2 Palpitations Caitlin Stauffer M.D. 03/05/2019 A69.20 Lyme disease, unspecified Caitlin Stauffer M.D. 03/05/2019 E05.90 Thyrotoxicosis, unspecified without thyrotoxic Caitlin Stauffer M.D. crisis or storm 03/05/2019 R07.9 Chest pain, unspecified Caitlin Stauffer M.D. 03/05/2019 R06.02 Shortness of breath Caitlin Stauffer M.D. Plan of Treatment Future Appointment(s):04/28/2019 10:30 am - Caitlin Stauffer M.D. at [facility]04/24/2019 1:30 pm - Traveling ECHO 1 at [facility]04/24/2019 1:30 pm - Caitlin Stauffer M.D. at [facility]2019 9:00 am - [place] [facility]03/05/2019 - Caitlin Stauffer M.D.R00.2 PalpitationsNew Orders:Event Monitor, Ordered: Follow up:OV after testing with MD Release: Dr Flowers vagal testing.A69.20 Lyme disease, unspecifiedComments:Treated, years of symptoms, intermittent abx.E05.90 Thyrotoxicosis, unspecified without thyrotoxic crisis or stormNew Orders:Echocardiogram, Scheduled: 04/02/19Follow up:Release: Shawn records all thyroid labs and tests and last OV note with Project Management It Specialist.R07.9 Chest pain, unspecifiedNew Orders:Echocardiogram, Scheduled: 04/02/19tress Test, Treadmill, No Imaging, Scheduled: 04/24/19Comments:ECG is normal, mild elevation in Troponin a year ago.R06.02 Shortness of breathNew Orders: Echocardiogram, Scheduled: 04/02/19 Functional Status Description No Information Available Mental Status Description No Information Available Referrals Description No Information Available
--- OUTSIDE RECORDS SUMMARY | 2019-04-06 11:28 | XMS REPORT | Continuity of Care Document ---
:1975 External Reference #:[id number] Author Name Rima Garcia NP Address [address] [place] [address] Care Team Providers Name Role Phone Keira Greene MD - Hematology & Care Team Information Coating And Baking Operator Oncology Eelna Pop MD - Rheumatology Care Team Information Coating And Baking Operator Arik Villegas - Family Medicine Care Team Information Coating And Baking Operator [phone] Problems Active Problems Provider Date Low back pain Arik Villegas M.D. Onset: 10/31/2006 Dysthymia Arik Villegas M.D. Onset: 10/31/2006 Anxiety state Arik Villegas M.D. Onset: 10/31/2006 Hypothyroidism Arik Villegas M.D. Onset: 02/13/2007 Inflammatory polyarthropathy Arik Villegas M.D. Onset: 04/28/2007 Systemic lupus erythematosus Ran Glaser M.D. Onset: 09/23/2007 Vitamin D deficiency Ran Glaser M.D. Onset: 01/26/2010 Cyst of ovary Ran Glaser M.D. Onset: 01/18/2011 Candidiasis Ran Glaser M.D. Onset: 06/11/2011 Lipoma (clinical) Arik Villegas M.D. Onset: 03/14/2012 Candidal vulvovaginitis Ran Glaser M.D. Onset: 12/17/2013 Polyarthropathy Arik Villegas M.D. Onset: 04/26/2014 Amnesia Arik Villegas M.D. Onset: 04/26/2014 Malaise and fatigue Airk Villegas M.D. Onset: 05/10/2014 Myalgia & Myositis Unspecified Arik Villegas M.D. Onset: 05/10/2014 Lyme disease Arik Villegas M.D. Onset: 06/07/2014 Constipation Arik Villegas M.D. Onset: 08/12/2014 Increased frequency of urination Arik Villegas M.D. 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 Onset: 07/11 Lymphadenopathy Arik Villegas M.D. Onset: 07/12/2015 Palpitations Arik Villegas M.D. Onset: 01/12/2016 Marjorie thyroiditis Arik Villegas M.D. 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 Onset: Excessive sweating Arik Villegas M.D. Onset: 01/12/2019 Cough Arik Villegas M.D. Onset: 01/12/2019 Social History Type Date Description Comments Sex Unknown Tobacco Use Start: Unknown Nonsmoker ETOH Use Occasional Tobacco Use Start: Unknown Patient has never smoked Allergies, Adverse Reactions, Alerts Active Allergies Reaction Severity Comments Date Sulfa Drugs 04/25/2006 Biaxin 09/01/2007 Wellbutrin SR rash 11/24/2007 Cymbalta poorly tolerated 01/26/2010 Lyrica poorly tolerated 01/26/2010 Codeine 07/22/2010 Hydroxyzine rapid HR, n/v, profuse sweats 10/21/2017 Medications Active Medications SIG Qnty Indications Ordering Provider Date Estradiol 1 by mouth every 30tabs N95.1 Rima Garcia, 03/31/2019 1mg Tablets day BAKER BREAD Gabapentin Take 1 To 2 60caps Louie Ann, 05/31/2015 300mg Capsules By Mouth M.D. Capsules AT Bedtime as Needed For Pain Epipen 2-Wilfredo Use as Directed 2units Arik Villegas, 11/02/2014 M.D. 0.3mg/0.3ML Solution Auto-Inject Vitamin B12 1ml im [facility] 03/14/2012 [facility] 1000mcg/ML Tablets [place] [facility] Vitamin D 3 po qd 60tabs Ran Glaser, 09/19/2009 1000Unit M.D. Tablets Oxycodone HCL 1 po q 12 hrs prn 50tabs Unknown 10mg Tablets Propranolol HCL 1 by mouth bid Unknown 10mg Tablets Vitamin K2 1 po qd Unknown History Medications Amoxicillin 1 by mouth 90tabs A69.29 Arik Villegas, 12/18/2018 - 875mg three times a M.D. 03/31/2019 Tablets day Immunizations CPT Code Status Date Vaccine Lot # [id number] Given 01/28/2007 DO Not Use Split Influenza Virus Vaccine [id number] Given Unknown Tetanus And Diptheria Adult Preservative Free >7Yrs Vital Signs Date Vital Result Comment 03/31/2019 9:36am BP Systolic 110 mmHg BP Diastolic 70 mmHg Heart Rate 60 /min Body Temperature 97.9 F Respiratory Rate 16 /min Height 69 inches 5'9" Weight 185.00 lb BMI (Body Mass Index) 27.3 kg/m2 01/12/2019 3:53pm BP Systolic 134 mmHg BP Diastolic 82 mmHg Heart Rate 112 /min Body Temperature 99.5 F Respiratory Rate 16 /min Height 69 inches 5'9" Weight 179.00 lb BMI (Body Mass Index) 26.4 kg/m2 Results Test Acquired Date Facility Test Result H/L Range Note Comprehensive 01/12/2019 [facility]) Sodium 139 mEq/L 134-149 Metabolic Prof Potassium 4.4 mEq/L 3.6-5.5 Chloride 105 mEq/L 94-112 Carbon Dioxide 28 mEq/L 21-32 Glucose 107 mg/dL High 70-105 BUN 14 mg/dL 6-26 Creatinine 0.7 mg/dL 0.6-1.4 BUN/Creat Ratio 20.0 CALC 8.0-36.0 Calcium 9.9 mg/dL 8.6-10.2 Total Protein 7.8 g/dL 6.4-8.3 Albumin 5.2 g/dL 3.8-5.5 Globulin 2.6 g/dL 2.0-4.8 A/G Ratio 2.0 CALC 0.6-2.3 Alk. Phosphatase 60 U/L 30-110 Alt (SGPT) 16 U/L 7-35 Ast (Sgot) 19 U/L 5-34 Total Bilirubin 0.7 mg/dL 0.2-1.3 GFR Non- >60 ml/min/1.73m^ >=60 GFR >60 ml/min/1.73m^ >=60 Laboratory test 01/12/2019 [facility](a) Free T4 1.15 ng/dL 0.75- 1.54 finding TSH 0.88 mIU/L 0.50-6.00 CBC Electronic (a New) 01/12/2019 [facility] WBC 8.56 4.0-10.0 (607)- - RBC 4.21 3.93-6.0 Hemoglobin (Fma/CMC/CTX) 12.9 g/dL 12.0-17.0 Hematocrit (Fma/CMC/CTX) 39.0 % 35.0-50.0 Mean Corpuscular Vol 92.6 fL 80-95 Mean Corpuscular Hemoglobin 30.6 pg 25.6-32.2 Mean Corpuscular Hemo Concen 33.1 g/dL 32.2-36.0 Platelets 253 10^3/ul 163-400 RDW-CV 12.2 11.6-14.4 Mean Platelet Volume 9.7 fL 8.0-12.4 Absolute Neutrophils BLD 5.92 1.56-6.13 Absolute Lymphocytes 1.70 1.18-3.74 Absolute Monocytes BLD Auto 0.85 High 0.24-0.82 Absolute Eos Blood 0.03 Low 0.04-0.54 Absolute Basophils 0.05 0.01-0.08 Neutrophil % 69.1 % 34.0-70.0 Lymph% 19.9 % Low 20.0-52.0 Monocytes % 9.9 % 5.0-12.0 Eos % 0.4 % Low 0.7-7.0 Basophil% 0.6 % 0-1.2 FSH + LH + E2 01/12/2019 [facility] LH 40.1 mIU/mL 1, 2 [address] [place] [address] (607)- - FSH 100.2 mIU/mL 3 Estradiol <5.0 pg/mL 4 Laboratory test 01/12/2019 [facility] C-Reactive 2 mg/L 0-10 finding [address] [facility] Protein, [place] [address] (607)- - CBC Auto Diff 10/29/2018 [facility] White Blood 8.1 Normal 3.5-10.8 Count 10^3/uL Red Blood Count 4.32 10^6/uL Normal 3.70-4.87 Hemoglobin 13.6 g/dL Normal 12.0-16.0 Hematocrit 40 % Normal 35-47 Mean Corpuscular Volume 91 fL Normal 80-97 Mean Corpuscular Hemoglobin 31 pg Normal 27-31 Mean Corpuscular HGB Conc 34 g/dL Normal 31-36 Red Cell Distribution Width 13 % Normal 10-15 Platelet Count 245 10^3/uL Normal 150-450 Mean Platelet Volume 8.2 fL Normal 7.4-10.4 Abs Neutrophils 5.5 10^3/uL Normal 1.5-7.7 Abs Lymphocytes 2.0 10^3/uL Normal 1.0-4.8 Abs Monocytes 0.6 10^3/uL Normal 0-0.8 Abs Eosinophils 0.0 10^3/uL Normal 0-0.6 Abs Basophils 0.1 10^3/uL Normal 0-0.2 Abs Nucleated RBC 0.0 10^3/uL Granulocyte % 67.3 % Lymphocyte % 24.7 % Monocyte % 7.2 % Eosinophil % 0.1 % Basophil % 0.7 % Nucleated Red Blood Cells % 0.1 Comp Metabolic Panel 10/29/2018 [facility] Sodium 138 mmol/L Normal 135-145 Potassium 3.5 mmol/L Normal 3.5-5.0 Chloride 105 mmol/L Normal 101-111 Co2 Carbon Dioxide 25 mmol/L Normal 22-32 Anion Gap 8 mmol/L Normal 2-11 Glucose 97 mg/dL Normal 70-100 Blood Urea Nitrogen 9 mg/dL Normal 6-24 Creatinine 0.72 mg/dL Normal 0.51-0.95 BUN/Creatinine Ratio 12.5 Normal 8-20 Calcium 9.9 mg/dL Normal 8.6-10.3 Total Protein 7.2 g/dL Normal 6.4-8.9 Albumin 4.5 g/dL Normal 3.2-5.2 Globulin 2.7 g/dL Normal 2-4 Albumin/Globulin Ratio 1.7 Normal 1-3 Total Bilirubin 1.10 mg/dL High 0.2-1.0 Alkaline Phosphatase 42 U/L Normal 34-104 Alt 10 U/L Normal 7-52 Ast 13 U/L Normal 13-39 Egfr Non- 88.0 >60 Egfr 106.5 >60 5 Laboratory test 10/29/2018 [facility] Troponin I 0.00 ng/mL <0.04 6 finding Inr/Protime 10/29/2018 [facility] Inr 1.03 Normal 0.82-1.09 7 Laboratory test 10/29/2018 [facility] TSH (Thyroid Stim 1.40 mcIU/mL Normal 0.34 -5.60 finding Horm) Free T4 (Free Thyroxine) 0.95 ng/dL Normal 0.61-1.12 1 serum 2 Adult Female: Follicular phase 2.4 - 12.6 Ovulation phase 14.0 - 95.6 Luteal phase 1.0 - 11.4 Postmenopausal 7.7 - 58.5 3 Adult Female: Follicular phase 3.5 - 12.5 Ovulation phase 4.7 - 21.5 Luteal phase 1.7 - 7.7 Postmenopausal 25.8 - 134.8 4 Adult Female: Follicular phase 12.5 - 166.0 Ovulation phase 85.8 - 498.0 Luteal phase 43.8 - 211.0 Postmenopausal <6.0 - 54.7 1st trimester 215.0 - >4300.0 Girls (1-10 years) 6.0 - 27.0 Jones ECLIA methodology 5 Because ethnic data is not always readily available, this report includes an eGFR for both -Americans and non- Americans. The National Kidney Disease Education Program (NKDEP) does not endorse the use of the MDRD equation for patients that are not between the ages of 18 and 70, are , have extremes of body size, muscle mass, or nutritional status, or are non- or non-. According to the National Kidney Foundation, irrespective of diagnosis, the stage of the disease is based on the level of kidney function: Stage Description GFR(mL/min/1.73 m(2)) 1 Kidney damage with normal or decreased GFR 90 2 Kidney damage with mild decrease in GFR 60-89 3 Moderate decrease in GFR 30-59 4 Severe decrease in GFR 15-29 5 Kidney failure <15 (or dialysis) 6 Troponin-I testing on Plasma Separator Tubes (PST) has a known false positive rate of 0.20-0.40%. All positive troponins reflex immediately to secondary confirmatory testing. Using the [employer] DxI 800 Access Immunoassay systems, the 99th percentile upper reference limit was demonstrated to be < 0.03 ng/mL. 7 Standard intensity warfarin therapeutic range: 2.0-3.0 High intensity warfarin therapeutic range: 2.5-3.5 Procedures Date Code Description Status 02/22/2017 [id number] Mammogram Completed 12/14/2016 [id number] Mammogram Completed 05/23/2009 [id number] Mammogram Completed 12/19/2007 [id number] Colonoscopy Completed Medical Devices Description No Information Available Encounters Type Date Location Provider Dx Diagnosis Office Visit 01/12/2019 Main Office Arik Villegas, R59.0 Localized enlarged 3:40p M.D. 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 01/12/2019 F41.1 Generalized anxiety disorder Arik Villegas M.D. 01/12/2019 A69.20 Lyme disease, unspecified Arik Villegas M.D. 01/12/2019 R61 Excessive sweating Arik Villegas M.D. 01/12/2019 R53.83 Fatigue Arik Villegas M.D. 01/12/2019 R05 Cough Arik Villegas M.D. 12/18/2018 A69.29 Other conditions associated with Lyme disease Arik Villegas M.D. 12/18/2018 E05.90 Thyrotoxicosis, unspecified without Arik Villegas M.D. thyrotoxic crisis or storm Plan of Treatment Future Appointment(s):04/17/2019 1:00 pm - Arik Villegas M.D. at Main [id number]/31/2019 - Rima Garcia, NPN95.1 Menopausal and female climacteric statesNew Medication:Estradiol 1 mg - 1 by mouth every dayComments:Start this. If it is not helping or not helping enough, we can either increase your dose or considerantidepressants.R61 Excessive ezfvwwoxD16.83 FatigueComments:* eat real food that is home cooked and based on fruits, vegetables, and whole grains as much as possible. Try to keep portion sizes small but eat every 2-3 hours* keep a consistent bedtime. Not everyone thrives on 8 hours of sleep; try to leave yourself time for 8.5 or 9 hours of sleep* (this is a hard one, but SO IMPORTANT ) get regular exercise. If not every day then try for every other day. A walk, shoveling, yoga at home, anything that helps you move your body for a sustained period of time* adda vitamin D supplement every day 1000 to 2000iu daily (we are all somewhat deficient at this latitude)* try out a light box -- usually people put them on for about 20 minutes at an indirect angle earlyin the morning. All the darkness at this time of year can really be mivvhjoS34.2 Major depressive disorder, recurrent severe without psychotic featuresComments:Come back in 3-4 weeks for a recheck of your mood. Please start the process of getting in with Mental Health for counselingAllComments:1. Patient has been queried about patient's goals/preferences and functional/lifestyle goals at relevant visits. If relevant, describe: Has been discussed, noted above2. Treatment goals as explainedto the patient: see above3. Are there barriers to meeting treatment goals? Yes If Yes, please describe: Barriers include possible insurance limits, disease process, and difficulty with lifestyle changes4. Self-Management goals as described to the patient: Yes, see above As always, we strongly encourage a healthy diet and making physical activity a part of your every day life. If you have questions about how or where to start, please contact the office. Functional Status Description No Information Available Mental Status Description No Information Available Referrals Refer to Reason for Referral Status Appt Date Caitlin Stauffer MD consult regarding palpitations delvin Scheduled 03/05/2019 [facility] [place] [address] [phone] senior finance manager establish as patient jw Closed [address] [place] [address] [phone]
--- OUTSIDE RECORDS SUMMARY | 2019-04-06 11:28 | XMS REPORT | Continuity of Care Document ---
:1975 External Reference #:[id number] Author Name Daryl Flowers DO, MPH Address [address] [place] [address], [address] [place] [address] Care Team Providers Name Role Phone Ran Glaser M.D. - Family Medicine Care Team Information Hedge Fund Principal [phone] Arik Villegas M.D. - Family Medicine Care Team Information Hedge Fund Principal Problems Active Problems Provider Date Long-term current use of opiate analgesic Daryl Flowers DO, MPH Onset: 2018 drug Lyme disease Daryl Flowers DO MPH Onset: 11/25/2018 Adult onset Still's disease Daryl Flowers DO MPH Onset: 11/25/2018 Arthralgia of the pelvic region and thigh Daryl Flowers DO MPH Onset: 2018 Neck pain Daryl Flowers DO MPH Onset: 11/25/2018 Chronic pain Daryl Flowers DO MPH Onset: 11/25/2018 Social History Type Date Description Comments Sex Unknown Cigarette Use Former Cigarette Smoker ETOH Use Rarely consumes alcohol Tobacco Use Start: Unknown Patient has never smoked Smoking Status Reviewed: 02/27/19 Patient has never smoked Allergies, Adverse Reactions, Alerts Active Allergies Reaction Severity Comments Date Novocain 04/15/2008 Medications Active Medications SIG Qnty Indications Ordering Provider Date Oxycodone HCL si by mouth 90tabs Daryl Flowers DO, 03/24/2018 10mg every 8 hours as MPH Tablets directed chronic pain patient Gabapentin si by mouth Unknown 300mg twice a day as Capsules directed Propranolol HCL 1 by mouth twice Unknown 10mg a day as directed Tablets Selenium 2 by mouth daily Unknown 200mcg Tablets Vitamin D Unknown 1000Unit Tablets [place]-3 Complex Unknown [phone]-Unit Capsules CBD Oil Unknown Biotin Unknown 1mg Capsules Amoxicillin si by mouth Unknown 875mg twice a day as Tablets directed Immunizations Description No Information Available Vital Signs Date Vital Result Comment 02/27/2019 10:17am BP Systolic 128 mmHg BP Diastolic 84 mmHg Heart Rate 86 /min Respiratory Rate 20 /min Height 69 inches 5'9" Weight 186.00 lb Pain Level 7 Pain at this time. Pain Level With Medicine 6 on average with meds Pain Level Without Medicine 9 without meds BMI (Body Mass Index) 27.5 kg/m2 01/22/2019 11:14am BP Systolic 134 mmHg BP Diastolic 78 mmHg Heart Rate 76 /min Respiratory Rate 20 /min Height 69 inches 5'9" Weight 178.00 lb Pain Level 4 Pain at this time. Pain Level With Medicine 3 on average with meds Pain Level Without Medicine 9 without meds BMI (Body Mass Index) 26.3 kg/m2 Procedures Date Code Description Status 01/22/2019 37136 Therapeutic, Prophylactic Or Diagnostic Injection Subq/Im Completed 12/25/2018 28502 Therapeutic, Prophylactic Or Diagnostic Injection Subq/Im Completed 11/25/2018 99558 Omt 1-2 Body Regions Completed 11/25/2018 77823 Therapeutic, Prophylactic Or Diagnostic Injection Subq/Im Completed 10/24/2018 92313 Therapeutic, Prophylactic Or Diagnostic Injection Subq/Im Completed Medical Devices Description No Information Available Encounters Type Date Location Provider Dx Diagnosis Office Visit 01/22/2019 Main Office as Of Daryl Flowers DO G89.29 Other chronic pain 11:15a 04/11/13 MPH M54.2 Cervicalgia M25.551 Pain in right hip M25.552 Pain in left hip R53.83 Other fatigue Z79.891 longterm (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 of opiate analgesic G90.3 Multi-system degeneration of the autonomic nervous system Office Visit 12/25/2018 10:00a Main Office as Daryl Flowers G89.29 Other chronic Of 04/11/13 , MPH pain M54.2 Cervicalgia M25.551 Pain in right hip M25.552 Pain in left hip R53.83 Other fatigue Z79.891 longterm (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 of opiate analgesic Office Visit 11/25/2018 10:15a Main Office as Daryl Flowers, G89.29 Other chronic Of 04/11/13 DO, MPH pain M54.2 Cervicalgia M25.551 Pain in right hip M25.552 Pain in left hip 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 A69.29 Other conditions associated with Lyme disease Z79.891 longterm (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 of opiate analgesic M99.01 Segmental and somatic dysfunction of cervical region R53.83 Other fatigue Office Visit 10/24/2018 1:30p Main Office as Daryl Flowers G89.29 Other chronic Of 04/11/13 DO, MPH pain M25.552 Pain in left hip M25.551 Pain in right hip M54.2 Cervicalgia Z79.891 longterm (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 of opiate analgesic R53.83 Other fatigue Office Visit 09/24/2018 3:45p Main Office as Daryl Flowers G89.29 Other chronic Of 04/11/13 DO, MPH pain M54.2 Cervicalgia M25.552 Pain in left hip M25.551 Pain in right hip Z79.891 oil 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 Assessments Date Code Description Provider 02/27/2019 G89.29 Other chronic pain Daryl Flowers DO, MPH 02/27/2019 M54.2 Cervicalgia Daryl Flowers DO, MPH 02/27/2019 M25.551 Pain in right hip Daryl Flowers DO, MPH 02/27/2019 M25.552 Pain in left hip Daryl Flowers DO, MPH 02/27/2019 R53.83 Other fatigue Daryl Flowers DO, MPH 02/27/2019 Z79.891 longterm (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 of opiate analgesic Daryl Flowers DO, MPH 01/22/2019 G89.29 Other chronic pain Daryl Flowers DO, MPH 01/22/2019 M54.2 Cervicalgia Daryl Flowers DO, MPH 01/22/2019 M25.551 Pain in right hip Flowers, Daryl, DO, MPH 01/22/2019 M25.552 Pain in left hip Flowers, Daryl, DO, MPH 01/22/2019 R53.83 Other fatigue Flowers, Daryl, DO, MPH 01/22/2019 Z79.891 longterm (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 of opiate analgesic Flowers, Daryl , DO, MPH 01/22/2019 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 Multi-system degeneration of the autonomic Flowers, Daryl, DO , MPH nervous system 12/25/2018 G89.29 Other chronic pain Flowers, Daryl, DO, MPH 12/25/2018 M54.2 Cervicalgia Flowers, Daryl, DO, MPH 12/25/2018 M25.551 Pain in right hip Flowers, Daryl, DO, MPH 12/25/2018 M25.552 Pain in left hip Flowers, Daryl, DO, MPH 12/25/2018 R53.83 Other fatigue Flowers, Daryl, DO, MPH 12/25/2018 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.891 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 Flowers, Daryl , DO, MPH 11/25/2018 G89.29 Other chronic pain Flowers, Daryl, DO, MPH 11/25/2018 M54.2 Cervicalgia Flowers, Daryl, DO, MPH 11/25/2018 M25.551 Pain in right hip Flowers, Daryl, DO, MPH 11/25/2018 M25.552 Pain in left hip Flowers, Daryl, DO, MPH 11/25/2018 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 Flowers, Daryl, DO, MPH 11/25/2018 A69.29 Other conditions associated with Lyme Flowers, Daryl, DO, MPH disease 11/25/2018 Z79.891 oil 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 Flowers, Daryl , DO, MPH 11/25/2018 M99.01 Segmental and somatic dysfunction of Flowers, Daryl, DO, MPH cervical region 11/25/2018 R53.83 Other fatigue Flowers, Daryl, DO, MPH 10/24/2018 G89.29 Other chronic pain Flowers, Daryl, DO, MPH 10/24/2018 M25.552 Pain in left hip Daryl Flowers DO MPH 10/24/2018 M25.551 Pain in right hip Daryl Flowers DO MPH 10/24/2018 M54.2 Cervicalgia Daryl Flowers DO MPH 10/24/2018 Z79.891 longterm (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 of opiate analgesic Daryl Flowers DO MPH 10/24/2018 R53.83 Other fatigue Daryl Flowers DO MPH 09/24/2018 G89.29 Other chronic pain Daryl Flowers DO MPH 09/24/2018 M54.2 Cervicalgia Daryl Flowers DO MPH 09/24/2018 M25.552 Pain in left hip Daryl Flowers DO MPH 09/24/2018 M25.551 Pain in right hip Daryl Flowers DO MPH 09/24/2018 Z79.891 longterm (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 of opiate analgesic Daryl Flowers DO MPH Plan of Treatment Future Appointment(s):03/27/2019 10:15 am - Daryl Flowers DO MPH at Main Office as Of 04/11/1411 - Daryl Flowers DO, MPHG89.29 Other chronic painComments:Chronic. Symptoms and complaints discussed and reviewed today. No significant changes in physical findings. Continue current medical pain management.M54.2 CervicalgiaComments:Chronic. Symptoms and complaints discussed and reviewed today. No significant changes in physical findings. Continue current medical pain management.M25.551 Pain in right hipComments:Chronic. Symptoms and complaints discussed and reviewed today. No significant changes in physical findings. Continue current medical pain management.M25.552 Pain in left hipComments:Chronic. Symptoms and complaints discussed and reviewed today. No significant changes in physical findings. Continue current medical pain management.R53.83 Other fatigueComments:Symptoms and complaints discussed and reviewed today. No significant changes in physical findings. Continue current medical pain management. B12 injection administered after patient evaluated. 1ml IM for fatigue. (See Consent for injection-B12 document for lot number and expiration date.)Z79.891 longterm (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 of opiate analgesicNew Labs: Urine Drug Screen, Ordered: 02/27/19Comments:Urine drug screen sample taken today to monitor opiate use and to monitor use of illicit substances.Will discuss results at next appointment.The following tests were ordered:6 AM, AMPH , CONRADO, TESSA, BUP, CARIS, COCM, ETG, FENT, MCSHSG, OPI, OXY, PCP, TAPEN, XTSY , ZOLP. A urine drug test (UDT) was ordered for this patient and collected on site today. Creatinine has been ordered as well for specimen validity, not for kidney function. Preliminary UDT results are not final and should not be used to determine patient care or plan of treatment. Initially a qualitative immunoassay screen will bedone. Any inconsistent or positive findings will be further tested with a more comprehensive quantitative confirmation LCMS study. It is part of the treatment process of prescribing controlled substances and is considered standard of care.AllComments:Continue current medical pain management ; injection therapy, osteopathic manipulation, PT / modalities, and consults as needed to manage chronic pain.Non - opioid pain management discussed and optionsdiscussed.Side effects discussed; anticipatory guidance given. Patient clearly understand and agree with all medical treatments and suggestions. All medicines prescribed are adequate and appropriate for this patient's complaint of pain, medical history, physical, and personal goals.Goals of Treatment are to provide adequate and appropriate multidisciplinary medical pain management to increase/ maintain patient's quality of life and functionality while maintaining satisfactory side effect profile andminimizing tank terminal gauger end-organ damage. Importance of regular nutrition throughout the day discussed.Activity as toleratedContinue with PCP Functional Status Description No Information Available Mental Status Description No Information Available Referrals Description No Information Available
--- OUTSIDE RECORDS SUMMARY | 2019-04-06 11:28 | XMS REPORT | Continuity of Care Document ---
:1975 External Reference #:[id number] Author Name She Ortiz Care Team Providers Name Role Phone Arik Villegas MD - Family Medicine Care Team Information Personal Injury Litigation Paralegal Problems Active Problems Provider Date Palpitations Caitlin [...] kg/m2 Ejection Fraction 45%-50% echocardiogram 12/22/2017 Results Test Acquired Date Facility Test Result H/L Range Note Comprehensive 01/12/2019 N2N/CCD Import Sodium 139 mEq/L 134-149 Metabolic Prof Potassium [...] 0.7 mg/dL 0.2-1.3 GFR Non- >60 ml/min/1.73m^ GFR >60 ml/min/1.73m^ Lab Results 01/12/2019 N2N/CCD Import Free T4 1.15 ng/dL 0.75-1.54 TSH 0.88 mIU/L 0.50-6.00 WBC 8.56 1 4.0-10.0 RBC 4.21 1 3.93-6.0 Hemoglobin (Fma/CMC/CTX) 12.9 g/dL 12.0-17.0 Hematocrit (Fma/CMC/CTX) 39.0 % 35.0-50.0 Mean Corpuscular Vol 92.6 fL 80-95 Mean Corpuscular Hemoglobin 30.6 pg 25.6-32.2 Mean Corpuscular Hemo Concen 33.1 g/dL 32.2-36.0 Platelets 253 10^3/uL 163-400 RDW-CV 12.2 1 11.6-14.4 Mean Platelet Volume 9.7 fL 8.0-12.4 Absolute Neutrophils BLD 5.92 1 1.56-6.13 Absolute Lymphocytes 1.70 1 1.18-3.74 Absolute Monocytes BLD Auto 0.85 1 High 0.24-0.82 Absolute Eos Blood 0.03 1 Low 0.04-0.54 Absolute Basophils 0.05 1 0.01-0.08 Neutrophil % 69.1 % 34.0-70.0 Lymph% 19.9 % Low 20.0-52.0 Monocytes % 9.9 % 5.0-12.0 Eos % 0.4 % Low 0.7-7.0 Basophil% 0.6 % 0-1.2 Lab Results 01/12/2019 N2N/CCD Import WBC 8.56 1 4.0-10.0 RBC 4.21 1 3.93-6.0 Hemoglobin (Fma/CMC/CTX) 12.9 g/dL 12.0-17.0 Hematocrit (Fma/CMC/CTX) 39.0 % 35.0-50.0 Mean Corpuscular Vol 92.6 fL 80-95 Mean Corpuscular Hemoglobin 30.6 pg 25.6-32.2 Mean Corpuscular Hemo Concen 33.1 g/dL 32.2-36.0 Platelets 253 10^3/uL 163-400 RDW-CV 12.2 1 11.6-14.4 Mean Platelet Volume 9.7 fL 8.0-12.4 Absolute Neutrophils BLD 5.92 1 1.56-6.13 Absolute Lymphocytes 1.70 1 1.18-3.74 Absolute Monocytes BLD Auto 0.85 1 High 0.24-0.82 Absolute Eos Blood 0.03 1 Low 0.04-0.54 Absolute Basophils 0.05 1 0.01-0.08 Neutrophil % 69.1 % 34.0-70.0 Lymph% 19.9 % Low 20.0-52.0 Monocytes % 9.9 % 5.0-12.0 Eos % 0.4 % Low 0.7-7.0 Basophil% 0.6 % 0-1.2 Lab Results 01/12/2019 N2N/CCD Import LH 40.1 mIU/mL 1, 2 FSH 100.2 mIU/mL 3 Estradiol <5.0 pg/mL 4 C-Reactive Protein, Quant 2 mg/L 0-10 Lab Results 01/12/2019 N2N/CCD Import C-Reactive Protein, 2 mg/L 0-10 Quant CBC Auto Diff 10/29/2018 N2N/CCD Import White Blood Count 8.1 10^3/uL 3.5-10.8 Red Blood Count 4.32 10^6/uL 3.70-4.87 Hemoglobin 13.6 g/dL 12.0-16.0 Hematocrit 40 % 35-47 Mean Corpuscular Volume 91 fL 80-97 Mean Corpuscular Hemoglobin 31 pg 27-31 Mean Corpuscular HGB Conc 34 g/dL 31-36 Red Cell Distribution Width 13 % 10-15 Platelet Count 245 10^3/uL 150-450 Mean Platelet Volume 8.2 fL 7.4-10.4 Abs Neutrophils 5.5 10^3/uL 1.5-7.7 Abs Lymphocytes 2.0 10^3/uL 1.0-4.8 Abs Monocytes 0.6 10^3/uL 0-0.8 Abs Eosinophils 0.0 10^3/uL 0-0.6 Abs Basophils 0.1 10^3/uL 0-0.2 Abs Nucleated RBC 0.0 10^3/uL Granulocyte % 67.3 % Lymphocyte % 24.7 % Monocyte % 7.2 % Eosinophil % 0.1 % Basophil % 0.7 % Nucleated Red Blood Cells % 0.1 1 Comp Metabolic Panel 10/29/2018 N2N/CCD Import Sodium 138 mmol/L 135- 145 Potassium 3.5 mmol/L 3.5-5.0 Chloride 105 mmol/L 101-111 Co2 Carbon Dioxide 25 mmol/L 22-32 Anion Gap 8 mmol/L 2-11 Glucose 97 mg/dL 70-100 Blood Urea Nitrogen 9 mg/dL 6-24 Creatinine 0.72 mg/dL 0.51-0.95 BUN/Creatinine Ratio 12.5 1 8-20 Calcium 9.9 mg/dL 8.6-10.3 Total Protein 7.2 g/dL 6.4-8.9 Albumin 4.5 g/dL 3.2-5.2 Globulin 2.7 g/dL 2-4 Albumin/Globulin Ratio 1.7 1 1-3 Total Bilirubin 1.10 mg/dL High 0.2-1.0 Alkaline Phosphatase 42 U/L 34-104 Alt 10 U/L 7-52 Ast 13 U/L 13-39 Egfr Non- 88.0 1 Egfr 106.5 1 5 Lab Results 10/29/2018 N2N/CCD Import Troponin I 0.00 ng/mL 6 Inr/Protime 10/29/2018 N2N/CCD Import Inr 1.03 1 0.82-1.09 7 Lab Results 10/29/2018 N2N/CCD Import TSH (Thyroid Stim 1.40 mcIU/mL 0.34-5.60 Horm) Free T4 (Free Thyroxine) 0.95 ng/dL 0.61-1.12 1 serum 2 Adult Female: Follicular [...] immediately to secondary confirmatory testing. Using the ab&jb properties and services [employer] Access Immunoassay systems, the 99th percentile upper reference limit was demonstrated to be < 0.03 ng/mL. 7 Standard intensity warfarin therapeutic range: 2.0-3.0 High intensity warfarin therapeutic range: 2.5-3.5 Procedures Date Code Description Status 03/05/2019 65628 EKG Tracing & Interpretation Completed Medical Devices Description No Information Available Encounters Type Date Location Provider Dx Diagnosis Office Visit 03/05/2019 [facility] Caitlin Stauffer M.D. R00.2 Palpitations 3:[facility] A69.20 Lyme disease, unspecified E05.90 Thyrotoxicosis, unsp without thyrotoxic crisis or storm R07.9 Chest pain, unspecified R06.02 Shortness of breath Assessments Date Code Description Provider 03/05/2019 R00.2 Palpitations Caitlin Stauffer M.D. 03/05/2019 A69.20 Lyme disease, unspecified Caitlin Stauffer M.D. 03/05/2019 E05.90 Thyrotoxicosis, unspecified without thyrotoxic Caitlin Stauffer M.D. crisis or storm 03/05/2019 R07.9 Chest pain, unspecified Caitlin Stauffer M.D. 03/05/2019 R06.02 Shortness of breath Caitlin Stauffer M.D. Plan of Treatment Future Appointment(s):04/24/2019 1:00 pm - [facility] ECHO Schedule at [facility]04/28/2019 10:30 am - Caitlin Stauffer M.D. at [facility]04/24/2019 1:30 pm - Caitlin Stauffer M.D. at [facility]2019 9:00 am - [place] ECHO Schedule at [facility]03/05/2019 - Caitlin Stauffer M.D.R00.2 PalpitationsNew Orders:Event Monitor, Ordered: Follow up:OV after testing with MD Release: Dr Flowers vagal testing.A69.20 Lyme disease, unspecifiedComments:Treated, years of symptoms, intermittent abx.E05.90 Thyrotoxicosis, unspecified without thyrotoxic crisis or stormNew Orders:Echocardiogram, Scheduled: 04/02/19Follow up:Release: Shawn records all thyroid labs and tests and last OV note with Blood Bank Business Manager.R07.9 Chest pain, unspecifiedNew Orders:Echocardiogram, Scheduled: 04/02/19tress Test, Treadmill, No Imaging, Scheduled: 04/24/19Comments:ECG is normal, mild elevation in Troponin a year ago.R06.02 Shortness of breathNew Orders: Echocardiogram, Scheduled: 04/02/19 Functional Status Description No Information Available Mental Status Description No Information Available Referrals Description No Information Available
--- OUTSIDE RECORDS SUMMARY | 2019-04-06 11:28 | XMS REPORT | Continuity of Care Document ---
:1975 External Reference #:[id number] Author Name Daryl Flowres DO, MPH Address [address] [place] [address], [address] [place] [id number] Care Team Providers Name Role Phone Ran Glaser M.D. - Family Medicine Care Team Information [employer] Arik Villegas M.D. - Family Medicine Care Team Information [employer] Assoc Problems Active Problems Provider Date Long-term current [...] Patient has never smoked Smoking Status Reviewed: 03/27/19 Patient has never smoked Allergies, Adverse Reactions, [...] 200mcg Tablets Vitamin D Unknown 1000Unit Tablets Alcoa-3 Complex Unknown [id number]-mg-Unit Capsules CBD Oil Unknown Biotin Unknown 1mg Capsules Amoxicillin si by mouth Unknown 875mg twice a day as Tablets directed Immunizations Description No Information Available Vital Signs Date Vital Result Comment 03/27/2019 10:10am BP Systolic 128 mmHg BP Diastolic 76 mmHg Heart Rate 78 /min Respiratory Rate 20 /min Height 69 inches 5'9" Weight 186.00 lb Pain Level 8 Pain at this time. Pain Level With Medicine 6 on average with meds Pain Level Without Medicine 9 without meds BMI (Body Mass Index) 27.5 kg/m2 02/27/2019 10:17am BP Systolic 128 mmHg BP Diastolic 84 mmHg Heart Rate 86 /min Respiratory Rate 20 /min Height 69 inches 5'9" Weight 186.00 lb Pain Level 7 Pain at this time. Pain Level With Medicine 6 on average with meds Pain Level Without Medicine 9 without meds BMI (Body Mass Index) 27.5 kg/m2 Results Description No Information Available Procedures Date Code Description Status 02/27/2019 88190 Therapeutic, Prophylactic Or Diagnostic Injection Subq/Im Completed 01/22/2019 56977 Therapeutic, Prophylactic Or Diagnostic Injection Subq/Im Completed 12/25/2018 24089 Therapeutic, Prophylactic Or Diagnostic Injection Subq/Im Completed 11/25/2018 95440 Omt 1-2 Body Regions Completed 11/25/2018 31349 Therapeutic, Prophylactic Or Diagnostic Injection Subq/Im Completed 10/24/2018 84478 Therapeutic, Prophylactic Or Diagnostic Injection Subq/Im Completed Medical Devices Description No Information Available Encounters Type Date Location Provider Dx Diagnosis Office Visit 02/27/2019 Main Office as Of Daryl Flowers DO G89.29 Other chronic pain 10:15a 04/11/13 MPH M54.2 Cervicalgia M25.551 Pain in right hip M25.552 Pain in left hip R53.83 Other fatigue 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 Office Visit 01/22/2019 11:15a Main Office as Daryl Flowers G89.29 Other chronic Of 04/11/13 DO, MPH pain M54.2 Cervicalgia M25.551 Pain in right hip M25.552 Pain in left hip R53.83 Other fatigue Z79.891 intermediate (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 of opiate analgesic G90.3 Multi-system degeneration of the autonomic nervous system Office Visit 12/25/2018 10:00a Main Office as Daryl Flowers, G89.29 Other chronic Of 04/11/13 DO, MPH pain M54.2 Cervicalgia M25.551 Pain in right hip M25.552 Pain in left hip R53.83 Other fatigue 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 Office Visit 11/25/2018 10:15a Main Office as Daryl Flowers G89.29 Other chronic Of 04/11/13 DO, MPH pain M54.2 Cervicalgia M25.551 Pain in right hip M25.552 Pain in left hip 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 A69.29 Other conditions associated with Lyme disease 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 M99.01 Segmental and somatic dysfunction of cervical region R53.83 Other fatigue Office Visit 10/24/2018 1:30p Main Office as Daryl Flowers G89.29 Other chronic Of 04/11/13 DO, MPH pain M25.552 Pain in left hip M25.551 Pain in right hip M54.2 Cervicalgia 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 R53.83 Other fatigue Assessments Date Code Description Provider 03/27/2019 G89.29 Other chronic pain Daryl Flowers DO, MPH 03/27/2019 M54.2 Cervicalgia Daryl Flowers DO, MPH 03/27/2019 M25.551 Pain in right hip Daryl Flowers DO, MPH 03/27/2019 M25.552 Pain in left hip Daryl Flowers DO, MPH 03/27/2019 Z79.891 intermediate (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 of opiate analgesic Daryl Flowers DO, MPH 03/27/2019 R53.83 Other fatigue Daryl Flowers DO, MPH 03/27/2019 Z13.31 Encounter for screening for depression Flowers, Daryl, DO, MPH 02/27/2019 G89.29 Other chronic pain Flowers, Daryl, DO, MPH 02/27/2019 M54.2 Cervicalgia Flowers, Daryl, DO, MPH 02/27/2019 M25.551 Pain in right hip Flowers, Daryl, DO, MPH 02/27/2019 M25.552 Pain in left hip Flowers, Daryl, DO, MPH 02/27/2019 R53.83 Other fatigue Flowers, Daryl, DO, MPH 02/27/2019 Z79.891 intermediate (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 of opiate analgesic Flowers, Daryl , DO, MPH 01/22/2019 G89.29 Other chronic pain Flowers, Daryl, DO, MPH 01/22/2019 M54.2 Cervicalgia Flowers, Daryl, DO, MPH 01/22/2019 M25.551 Pain in right hip Flowers, Daryl, DO, MPH 01/22/2019 M25.552 Pain in left hip Flowers, Daryl, DO, MPH 01/22/2019 R53.83 Other fatigue Flowers, Daryl, DO, MPH 01/22/2019 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 Flowers, Daryl [...] fatigue Flowers, Daryl, DO, MPH 12/25/2018 Z79.891 intermediate (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 of opiate analgesic Flowers, Daryl , DO, MPH 11/25/2018 G89.29 Other chronic pain Flowers, Daryl, DO, MPH 11/25/2018 M54.2 Cervicalgia Flowers, Daryl, DO, MPH 11/25/2018 M25.551 Pain in right hip Daryl Flowers DO, MPH 11/25/2018 M25.552 Pain in left hip Daryl Flowers DO, MPH 11/25/2018 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 Daryl Flowers DO, MPH 11/25/2018 A69.29 Other conditions associated with Lyme Daryl Flowers DO, MPH disease 11/25/2018 Z79.891 intermediate (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 of opiate analgesic Daryl Flowers DO, MPH 11/25/2018 M99.01 Segmental and somatic dysfunction of Daryl Flowers DO, MPH cervical region 11/25/2018 R53.83 Other fatigue Daryl Flowers DO, MPH 10/24/2018 G89.29 Other chronic pain Daryl Flowers DO, MPH 10/24/2018 M25.552 Pain in left hip Daryl Flowers DO, MPH 10/24/2018 M25.551 Pain in right hip Daryl Flowers DO, MPH 10/24/2018 M54.2 Cervicalgia Daryl Flowers DO, MPH 10/24/2018 Z79.891 intermediate (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 of opiate analgesic Daryl Flowers DO, MPH 10/24/2018 R53.83 Other fatigue Daryl Flowers DO, MPH Plan of Treatment Future Appointment(s):04/27/2019 10:15 am - Daryl Flowers DO MPH at Main Office as Of 04/11/1400 - Daryl Flowers DO, MPHG89.29 Other chronic [...] in physical findings. Continue current medical pain management.Z79.891 intermediate (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 of opiate analgesicNew Labs:Urine Drug Screen, Ordered: 03/27/19Comments:Urine drug screen sample taken today to monitor opiate use and to monitor use of illicit substances.Will discuss results at next appointment.The following tests were ordered:6 AM, AMPH, CONRADO, TESSA, BUP, CARIS, COCM, ETG, FENT, MCSHSG, OPI, OXY, PCP, TAPEN, XTSY, ZOLP. A urine drug test (UDT) was [...] controlled substances and is considered standard of care.R53.83 Other fatigueComments:Symptoms and complaints discussed and reviewed today. No significant changes in physical findings. Continue current medical pain management. B12 injection administered after patient evaluated. 1ml IM for fatigue. (See Consent for injection-B12 document for lot number and expiration date.)Z13.31 Encounter for screening for depressionComments:PHQ-9 Depression Screen administered today, results were Positive at this time. Followed by PCP. Will follow as pertains to their pain. Patient seems to be stable today. Reassurance and counseling. Patient seems to be stable today.AllComments:Continue current medical pain management; injection therapy, osteopathic manipulation, PT / modalities, [...] while maintaining satisfactory side effect profile andminimizing jail end-organ damage. Importance of regular nutrition throughout the day discussed.Activity as toleratedContinue with PCP Functional Status Description No Information Available Mental Status Description No Information Available Referrals Description No Information Available
--- OUTSIDE RECORDS SUMMARY | 2019-04-06 11:28 | XMS REPORT | Continuity of Care Document ---
:1975 External Reference #:[id number] Author Name Caitlin Stauffer M.D. Address [address] [facility] [place] [address] Problems Description No Information Available Social History [...]
[2019-04-06 11:30] LABS: INR 0.94 (0.82-1.09)
[2019-04-06 11:46] LABS: Albumin 4.6 g/dL (3.2-5.2); Albumin/Globulin Ratio 1.6 (1-3); BUN/Creatinine Ratio 21.9 (8-20); EGFR African American 104.8 (>60); EGFR Non-African American 86.6 (>60); Globulin 2.9 g/dL (2-4); Potassium 4.3 mmol/L (3.5-5.0); Total Bilirubin 1.1 mg/dL (0.2-1.0); Total Protein 7.5 g/dL (6.4-8.9)
--- NOTE | 2019-04-06 14:16 | ED ---
Complex/Multi-Sys Presentation - HPI Summary HPI Summary: Patient is a 43 y/o F presenting to the ED for a chief complaint of palpitations. Four nights ago, she had a syncopal episode after having palpitations. On 04/06/19, she notes having palpitations with headache, lightheadedness, diaphoresis, and nausea. She describes the palpitations as skipping beats. She took a beta michael which alleviated her palpitations. Currently, she complains of chest pain. She also reports a burning sensation in the bilateral LE at night and SI without a plan which she attributes to her health problems. Patient admits an attempt in the past. She reports recent stress. Any bilateral LE edema is denied. She believes her symptoms are related to Lyme disease. PMHx is significant for thyroid problem, Lyme disease, and lupus. 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 Medications reviewed. Allergies noted. - History Of Current Complaint Chief Complaint: EDDysrhythmPalp Time Seen by Provider: 04/06/19 13:53 Hx Obtained From: Patient Onset/Duration: Sudden Onset, Still Present Timing: Constant Severity Currently: Moderate Severity Initially: Moderate Associated Signs And Symptoms: Positive: Syncope - Resolved, Headache, Chest Pain, Palpitations, Nausea, Diaphoresis. Negative: Edema - Bilateral LE - Allergies/Home Medications Allergies/Adverse Reactions: Allergies Allergy/AdvReac Type Severity Reaction Status Date / Time bupropion Allergy Headache Verified 04/06/19 14:42 clarithromycin [From Biaxin] Allergy Rash Verified 04/06/19 14:42 codeine Allergy Nausea And Verified 04/06/19 14:42 Vomiting hydralazine Allergy Anaphylatic Verified 04/06/19 14:42 Shock metoprolol Allergy Hives Verified 04/06/19 14:42 Sulfa (Sulfonamide Allergy Hives Verified 04/06/19 14:42 Antibiotics) PMH/Surg Hx/FS Hx/Imm Hx Previously Healthy: Yes Endocrine/Hematology History: Reports: Hx Systemic Lupus Erythematosus - potentially misdiagnosed, Hx Thyroid Disease - Grave's disease, Hx Anemia, Other Endocrine/Hematological Disorders - Sjogren's syndrome, Lyme disease, Raynaud's disease Denies: Hx Diabetes Cardiovascular History: Reports: Hx Hypertension, Other Cardiovascular Problems/ Disorders - "A fib in the ambulance two weeks ago" Respiratory History: Denies: Hx Asthma GI History: Reports: Hx Diverticulosis, Hx Gall Bladder Disease, Hx Gastroesophageal Reflux Disease, Hx Irritable Bowel, Other GI Disorders History: Denies: Hx Renal Disease Musculoskeletal History: Reports: Hx Arthritis, Hx Back Problems, Hx Fibromyalgia Sensory History: Reports: Hx Contacts or Glasses Denies: Hx Legally Blind, Hx Deafness, Hx Hearing Aid, Hx Hearing Problem Opthamlomology History: Reports: Hx Contacts or Glasses Denies: Hx Legally Blind EENT History: Denies: Hx Deafness Neurological History: Reports: Hx Headaches, Hx Migraine Psychiatric History: Reports: Hx Depression, Hx Inpatient Treatment, Hx Community Mental Health Tx, Hx Suicide Attempt Denies: Hx Eating Disorder, Hx of Violent Episodes Against Others, Hx Substance Abuse - Cancer History Cancer Type, Location and Year: None reported - Surgical History Surgical History: Yes Surgery Procedure, Year, and Place: Partial hysterectomy 2006, Eddi Escobar [place]. 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 Date of Influenza Vaccine: does not do Infectious Disease History: No Infectious Disease History: Denies: Traveled Outside the [place] in Last 30 Days - Family History Known Family History: Positive: Cardiac Disease, Diabetes - in siblings, Other - Depression (father, sister), Leukemia (father, grandmother), stroke - Social History Occupation: Disabled Lives: With Family Alcohol Use: Rare Hx Substance Use: Yes Substance Use Type: Reports: Marijuana, Prescribed Substance Use Comment - Amount & Last Used: 11/20/17 Hx Tobacco Use: No Smoking Status (MU): Never Smoked Tobacco Review of Systems Positive: Skin Diaphoresis Positive: Palpitations, Chest Pain Positive: Nausea Positive: Other - Positive bilateral LE "burning". Negative: Myalgia, Edema - Bilateral LE Neurological: Other - Positive lightheadedness Positive: Headache, Syncope - Resolved Psychological: Other - Positive SI without a plan Positive: Depressed All Other Systems Reviewed And Are Negative: Yes Physical Exam - Summary Physical Exam Summary: Constitutional: Well-developed, Well-nourished, Alert. (-) Distressed Skin: Warm, Dry HENT: Normocephalic; Atraumatic Eyes: Conjunctiva normal Neck: Musculoskeletal ROM normal neck. (-) JVD, (-) Stridor, (-) Tracheal deviation Cardio: Rhythm regular, rate normal, Heart sounds normal; Intact distal pulses; Radial pulses are 2+ and symmetric. (-) Murmur Pulmonary/Chest wall: Effort normal. (-) Respiratory distress, (-) Wheezes, (-) Rales Abd: Soft, (-) tenderness, (-) Distension, (-) Guarding, (-) Rebound Musculoskeletal: (-) Edema Lymph: (-) Cervical adenopathy Neuro: Alert, Oriented x3 Psych: Mood and affect Normal. Appears anxious. Triage Information Reviewed: Yes Vital Signs On Initial Exam: Initial Vitals Temp Pulse Resp BP Pulse Ox 97.3 F 79 19 139/80 99 04/06/19 10:58 04/06/19 10:58 04/06/19 10:58 04/06/19 10:58 04/06/19 10:58 Vital Signs Reviewed: Yes Procedures - Sedation Patient Received Moderate/Deep Sedation with Procedure: No Diagnostics - Vital Signs Vital Signs Temp Pulse Resp BP Pulse Ox 04/06/19 12:34 99.5 F 67 19 133/91 100 04/06/19 10:58 97.3 F 79 19 139/80 99 - Laboratory Lab Results: Lab Results 04/06/19 04/06/19 04/06/19 Range/Units 11:07 11:07 11:07 WBC 5.7 (3.5-10.8) 10^3/uL RBC 4.50 (3.70-4.87) 10^6 /uL Hgb 14.1 (12.0-16.0) g/dL Hct 41 (35-47) % MCV 91 (80-97) fL MCH 31 (27-31) pg MCHC 34 (31-36) g/dL RDW 13 (10-15) % Plt Count 255 (150-450) 10^3/uL MPV 8.3 (7.4-10.4) fL Neut % (Auto) 59.4 % Lymph % (Auto) 29.7 % [place] % (Auto) 9.2 % Eos % (Auto) 0.4 % Baso % (Auto) 1.3 % Absolute Neuts (auto) 3.4 (1.5-7.7) 10^3/ul Absolute Lymphs (auto) 1.7 (1.0-4.8) 10^3/ul Absolute Monos (auto) 0.5 (0-0.8) 10^3/ul Absolute Eos (auto) 0.0 (0-0.6) 10^3/ul Absolute Basos (auto) 0.1 (0-0.2) 10^3/ul Absolute Nucleated RBC 0.0 10^3/ul Nucleated RBC % 0.0 INR (Anticoag Therapy) 0.94 (0.82-1.09) Sodium 137 (135-145) mmol/L Potassium 4.3 (3.5-5.0) mmol/L Chloride 102 (101-111) mmol/L Carbon Dioxide 27 (22-32) mmol/L Anion Gap 8 (2-11) mmol/L BUN 16 (6-24) mg/dL Creatinine 0.73 (0.51-0.95) mg/dL Est GFR ( Amer) 104.8 (>60) Est GFR (Non-Af Amer) 86.6 (>60) BUN/Creatinine Ratio 21.9 H (8-20) Glucose 104 H (70-100) mg/dL Calcium 10.0 (8.6-10.3) mg/dL Total Bilirubin 1.10 H (0.2-1.0) mg/dL AST 14 (13-39) U/L ALT 11 (7-52) U/L Alkaline Phosphatase 58 (34-104) U/L Troponin I 0.00 (<0.03) ng/mL Total Protein 7.5 (6.4-8.9) g/dL Albumin 4.6 (3.2-5.2) g/dL Globulin 2.9 (2-4) g/dL Albumin/Globulin Ratio 1.6 (1-3) Result Diagrams: 04/06/19 11:07 04/06/19 11:07 Lab Statement: Any lab studies that have been ordered have been reviewed, and results considered in the medical decision making process. - EKG 10:57 Cardiac Rate: NL - 78 BPM EKG Rhythm: Sinus Rhythm ST Segment: Normal Ectopy: None Summary of EKG Findings: EKG at 10:57 shows normal sinus rhythm with 78 BPM, no ischemic changes. Reviewed and interpreted by Dr. Hines. Complex Multi-Symp Course/Dx Course Of Treatment: Patient is here with palpitations. Patient's been having these chronically and is being seen by Dr. Stauffer. Patient is on propanolol for that. Patient had an EKG which showed no abnormality. Patient had blood performed which was grossly unremarkable including a serial troponin. Patient' s thyroid studies were within normal limits. Patient didn't say she has suicidal thoughts passively periodically due to her symptoms. Patient has no plan for suicide and reassurance me multiple times she would not commit suicide. Patient was discharged with cardiology follow-up - Diagnoses Provider Diagnoses: Palpitations, Anxiety Discharge ED - Sign-Out/Discharge Documenting (check all that apply): Patient Departure - Discharge - Discharge Plan Condition: Stable Disposition: HOME Patient Education Materials: Heart Palpitations (ED) Referrals: Arik Villegas MD [Primary Care Provider] - Additional Instructions: PLEASE RETURN TO EMERGENCY DEPARTMENT FOR SEVERE CHEST PAIN, WORSENING PALPITATIONS, YOUR SUICIDAL THOUGHTS ARE GETTING WORSE, OR ANY NEW OR WORSENING SYMPTOMS. Please follow up with your primary care physician and Dr. Stauffer. Please make all follow-ups in 1-3 days unless I advise you otherwise. - Billing Disposition and Condition Condition: STABLE Disposition: Home - Attestation Statements Document Initiated by Jefry: Yes Documenting Scribe: Swapna Bullock Provider For Whom Jefry is Documenting (Include Credential): Ryan Hines MD Scribe Attestation: I, Swapna Bullock, scribed for Ryan Hines MD on 04/06/19 at 1655. Scribe Documentation Reviewed: Yes Provider Attestation: The documentation as recorded by the Swapna payne accurately reflects the service I personally performed and the decisions made by me, Ryan Hines MD Status of Scribe Document: Viewed
[2019-04-06 14:41] LABS: TSH (Thyroid Stimulating Horm) 1.27 mcIU/mL (0.34-5.60)
[2019-04-06 14:43] LABS: Free T4 0.93 ng/dL (0.61-1.12)
[2019-04-06 15:35] VITALS: BP 146/89
== END 2019-04-06 15:36 | disposition home or self-care (01) ==
LOC: ED 10:54
DX: R00.2 Palpitations (principal); F41.9 Anxiety disorder, unspecified; R51 Headache; R42 Dizziness and giddiness; R61 Generalized hyperhidrosis; R11.0 Nausea; R07.89 Other chest pain; I10 Essential (primary) hypertension; Z88.1 Allergy status to other antibiotic agents; Z88.2 Allergy status to sulfonamides; Z88.8 Allergy status to other drugs, medicaments and biological substances; Z82.49 Family history of ischemic heart disease and other diseases of the circulatory system; Z83.3 Family history of diabetes mellitus; Z81.8 Family history of other mental and behavioral disorders; Z82.3 Family history of stroke; Z80.6 Family history of leukemia
CPT/HCPCS: 36415; 80053; 84439; 84443; 84484; 85025; 85610; 93005; 99282